=== PATIENT | female | born 1980 | race Caucasian/White ===

== ENCOUNTER 2021-12-24 13:33 | Emergency (ER) | payer MEDICAID, SELFPAY ==
[2021-12-24 13:43] VITALS: BP 132/61; PULSE 78; RESP 20; TEMP 36.7; O2SAT 98; BMI 25.6
--- NOTE | 2021-12-24 14:24 | ED_ITS ---
HPI - Anxiety General Chief Complaint: Anxiety Stated Complaint: Major Anxiety Kidney Transplant Pt Time Seen by Provider: 12/24/21 13:59 Source: patient Mode of arrival: ambulatory Limitations: no limitations History of Present Illness HPI narrative: 41 yo female with hx of lupus, arthritis, s/p kidney transplant on mycophenolate, anxiety here with c/o anxiety Rx clonazepam 1mg BID and ativan up to 2mg QHS states that for the past 4 days she has had severe anxiety and itching. She just lost her grandfather at the time this started. She is not responding to medications. She notes that this happened before and it resolved with IV bendaryl. No changes in medications. complaint: anxiety Onset (ago): day(s) (4) Symptoms: sense of impending doom and other (itching skin) Severity: moderate Quality: constant Place: home History of similar episodes: Yes Provoking factors: emotional stress (grandfather ) Relieving factors: medication Exacerbating factors: nothing Associated symptoms: other (feels her body is itchy) Related Data Allergies Allergy/AdvReac Type Severity Reaction Status Date / Time cyclosporine [CYCLOSPORINE] Allergy Severe kidney Unverified 03/21/20 18:15 issues NSAIDS (Non-Steroidal Allergy Severe CAUTION Unverified 03/21/20 18:15 Anti-Inflamma FOR KIDNEY [NSAIDS (NON-STEROIDAL TRANSPLANT ANTI-INFLAMMA] sulfamethoxazole Allergy Severe GUILLERMO Unverified 03/21/20 18:15 [From BACTRIM] FLARE UP tacrolimus [From PROGRAF] Allergy Severe SHAKES/AFFECTED Unverified 03/21/20 18:15 RENAL TRANSPLANT trimethoprim [From BACTRIM] Allergy Severe GUILLERMO Unverified 03/21/20 18:15 FLARE UP simvastatin [SIMVASTATIN] Allergy Intermediate itchy Unverified 03/21/20 18:15 acetaminophen [Percocet] Allergy Unknown Verified 07/07/18 00:00 oxycodone Allergy Unknown Verified 07/07/18 00:00 tapentadol [From NUCYNTA] AdvReac Severe URINARY Unverified 03/21/20 18:15 RETENTION doxycycline [DOXYCYCLINE] AdvReac Mild NAUSEA Unverified 03/21/20 18:15 From NUCYNTA Allergy Severe URINARY Uncoded 03/21/20 18:15 RETENTION From COMPAZINE Allergy Intermediate DYSTONIC Uncoded 09/17/20 18:15 REACTION BACTRIM Allergy Unknown Uncoded 07/07/18 00:00 Bactrim Allergy Unknown Uncoded 10/05/11 00:00 compazine Allergy Unknown Uncoded 10/05/11 00:00 COMPEZINE Allergy Unknown Uncoded 07/07/18 00:00 Dicyclomine HCl Allergy Unknown Uncoded 10/05/11 00:00 DILAUDID Allergy Unknown Uncoded 07/07/18 00:00 Dilaudid Allergy Unknown Uncoded 10/05/11 00:00 doxycycline Allergy Unknown Uncoded 07/07/18 00:00 NSAIDS Allergy Unknown Uncoded 07/07/18 00:00 nsaids Allergy Unknown Uncoded 10/05/11 00:00 Oxycodone HCl Allergy Unknown Uncoded 10/05/11 00:00 PROGRAF Allergy Unknown Uncoded 07/07/18 00:00 Prograf Allergy Unknown Uncoded 10/05/11 00:00 From DILAUDID AdvReac Intermediate NAUSEA, Uncoded 03/21/20 18:15 URINARY RETENTION Review of Systems Review of Systems: Constitutional : No Fever, No Chills ENT/Mouth : No Ear Pain, No Nasal Congestion, No sore throat Eyes: No Eye Pain, No Swelling, No Redness Cardiovascular : No Chest Pain, No SOB Respiratory : No Cough, No Sputum, No Dyspnea Gastrointestinal : No Nausea, No Vomiting, No Diarrhea, No Hematochezia, No Melena Genitourinary : No Dysuria, No Urinary Frequency, No Hematuria Musculoskeletal : No Myalgias Skin : No Skin Lesions, No rash, pos pruritis Neuro : No Weakness, No Numbness, No Paresthesias, No Dizziness, No Headache Psych : positive Anxiety, no Depression, no SI/HI Heme/Lymph: No Lymphadenopathy Endocrine : No Polyuria, No Polydipsia All other systems reviewed and are negative PMFSH Past Medical History Attestation statement: The following information was validated with the patient. Medical History (Updated 12/24/21 @ 15:11 by Sheila Song DO) Anxiety Arthritis Back pain Lupus Surgical History (Updated 12/24/21 @ 14:27 by Sheila Song DO) Kidney transplant recipient Transplant Social History Social History (Updated 12/24/21 @ 14:27 by Sheila Song DO) Patient Tobacco Use Status: Never used Tobacco Advance Directives: No Advance Directives Information Provided: No Physical Exam Vital Signs: Vital Signs: Last Vital Signs Temp 98.0 F 12/24/21 13:43 Pulse 78 12/24/21 13:43 Resp 20 12/24/21 13:43 BP 132/61 12/24/21 13:43 Pulse Ox 98 12/24/21 13:43 O2 Del Method 12/24/21 13:43 BMI result Body Mass Index 25.6 Appearance: Alert. Oriented X3. Mild acute distress. Anxious Eyes: Pupils equal, round and reactive to light. ENT: Pharynx normal. Neck: Normal inspection. Neck supple. CVS: Normal heart rate and rhythm. Pulses normal. Respiratory: No respiratory distress. Breath sounds normal. Abdomen: Soft and nontender. Skin: Skin warm and dry. Normal skin color. Normal skin turgor. no hvies noted, no rash seen but she is itching her arms Extremities: No lower extremity edema. No calf ttp Neuro: Oriented X 3. No motor deficit. No sensory deficit. Course Course Course Narrative: labs at baseline from 2018 patient feels better stable for DC MDM - Anxiety MDM Narrative Medical decision making narrative: 41 yo female with hx of lupus, arthritis, s/p kidney transplant on mycophenolate, anxiety here with severe bout of anxiety due to the of her grandfather. She has no SI. She states this has happened before in the past and she responded to IV benadryl. Will obtain basic labs, give IV benadryl/ativan and reassess. Has outpatient support, Rx and providers. Lab Data Result diagrams: 12/24/21 14:51 12/24/21 14:51 Labs: Lab Results 12/24/21 12/24/21 Range/Units 14:51 14:51 WBC 10.2 (4.8-10.8) X10*3/uL RBC 4.17 L (4.20-5.50) X10*6/uL Hgb 11.8 L (12.0-16.0) g/dl Hct 37.8 (37.0-47.0) % MCV 90.6 (80.0-98.0) fL MCH 28.3 (27.0-33.0) pg MCHC 31.2 (31.0-35.0) g/dl RDW 12.7 (11.0-16.0) % Plt Count 324 (160-400) X10*3/uL MPV 9.6 (9.4-12.3) fL Immature Gran % (Auto) 0.5 H (0.0-0.4) % Neut % (Auto) 76.2 H (45-73) % Lymph % (Auto) 16.4 L (20-40) % [place] % (Auto) 6.1 (2-11) % Eos % (Auto) 0.4 (0-4) % Baso % (Auto) 0.4 (0-2) % Lymph # (Auto) 1.7 (1.2-4.9) X10*3/uL [place] # (Auto) 0.6 (0.1-1.2) X10*3/uL Eos # (Auto) 0.0 (0.0-0.4) X10*3/uL Baso # (Auto) 0.0 (0.0-0.2) X10*3/uL Abs Immat Gran (auto) 0.05 H (0.00-0.03) X10*3/uL Absolute Neuts (auto) 7.7 (2.0-8.3) x10*3/uL Absolute Nucleated RBC 0.000 (0.0-0.012) X10*3/uL Nucleated RBC % (auto) 0.0 (0.0-0.2) /100WBC Sodium 139 (135-145) mmol/L Potassium 4.5 (3.3-5.1) mmol/L Chloride 111 H (96-108) mmol/L Carbon Dioxide 19 L (22-29) mmol/L Anion Gap 14 (12-20) BUN 19 H (9-16) mg/dL Creatinine 1.67 H (0.5-1.4) mg/dL Estim Creat Clear Calc 39.5 Estimated GFR 34 Random Glucose 102 (60-115) mg/dL Calcium 8.8 (8.4-10.2) mg/dL Total Bilirubin 0.2 (0.0-1.0) mg/dL Direct Bilirubin < 0.2 (0.0-0.5) mg/dL AST 44 H (5-31) U/L ALT 45 H (0-31) U/L Alkaline Phosphatase 112 (39-117) U/L Total Protein 7.9 (6.5-8.0) g/dL Albumin 4.3 (3.5-5.0) g/dL Discharge Plan Discharge Clinical Impression: Acute anxiety Patient Disposition: Home, Self-Care Instructions: Anxiety (ED) Additional Instructions: return to ED for any worsening symptoms or concerns Creatinine 1.67 Referrals: Physician,None [Primary Care Provider] - 2 days (as needed) Stand Alone Forms: Work/School Release
[2021-12-24 14:54] LABS: MANUAL DIFF FLAG NO
[2021-12-24 15:02] LABS: Basophils Percent Auto 0.4 % (0-2); Eosinophils Percent Auto 0.4 % (0-4); Hematocrit 37.8 % (37.0-47.0); Hemoglobin 11.8 g/dl (12.0-16.0); Imm Gran Abs Auto 0.05 X10*3/uL (0.00-0.03); Imm Gran Pct Auto 0.5 % (0.0-0.4); Lymphocytes Absolute Auto 1.7 X10*3/uL (1.2-4.9); Lymphocytes Percent Auto 16.4 % (20-40); Mean Corpuscular HGB Conc 31.2 g/dl (31.0-35.0); Mean Corpuscular Hemoglobin 28.3 pg (27.0-33.0); Mean Corpuscular Volume 90.6 fL (80.0-98.0); Mean Platelet Volume 9.6 fL (9.4-12.3); Monocytes Absolute Auto 0.6 X10*3/uL (0.1-1.2); Monocytes Percent Auto 6.1 % (2-11); Neutrophils Absolute Auto 7.7 x10*3/uL (2.0-8.3); Neutrophils Percent Auto 76.2 % (45-73); Platelet Count 324 X10*3/uL (160-400); Red Blood Count 4.17 X10*6/uL (4.20-5.50); Red Cell Distribution Width 12.7 % (11.0-16.0); White Blood Count 10.2 X10*3/uL (4.8-10.8)
[2021-12-24] MEDS: LORazepam 2 MG/ML VIAL 1 MG IVPUSH (15:15)
[2021-12-24] MEDS: diphenhydrAMINE HCL 50 MG/ML VIAL 25 MG IVPUSH (15:15)
[2021-12-24 15:18] LABS: Alanine Aminotransferase 45 U/L (0-31); Albumin Level 4.3 g/dL (3.5-5.0); Alkaline Phosphatase 112 U/L (39-117); Anion Gap 14 (12-20); Aspartate Amino Transferase 44 U/L (5-31); Bilirubin Direct < 0.2 mg/dL (0.0-0.5); Bilirubin Total 0.2 mg/dL (0.0-1.0); Blood Urea Nitrogen 19 mg/dL (9-16); Calcium 8.8 mg/dL (8.4-10.2); Carbon Dioxide 19 mmol/L (22-29); Chloride 111 mmol/L (96-108); Creatinine Clr Calc Pharmacy 39.5; Estimated Glomerular Filt Rate 34; Glucose Random 102 mg/dL (60-115); Potassium 4.5 mmol/L (3.3-5.1); Sodium 139 mmol/L (135-145); Total Protein 7.9 g/dL (6.5-8.0)
[2021-12-24 15:32] VITALS: BP 94/52; PULSE 83; RESP 18; TEMP 36.2; O2SAT 96
[2021-12-24] MEDS: LORazepam 1 MG TABLET PO (16:13)
--- NOTE | 2021-12-24 16:14 | PC.NURSE ---
Medicated as per Palma Rincon4, c/o restless legs, feeling like anxiety has improved since IV benadryl
== END 2021-12-24 17:33 | disposition home or self-care (01) ==
PROVIDERS: Emergency Provider Emergency Medicine
DX: F41.1 Generalized anxiety disorder (principal); F43.0 Acute stress reaction; Z79.899 Other long term (current) drug therapy
CPT/HCPCS: 36415; 80048; 80076; 85025; 96374; 96375; 99284; J1200; J2060

== ENCOUNTER 2022-07-08 08:37 | Emergency (ER) | payer OTHER, MEDICAID, SELFPAY ==
[2022-07-08 08:42] VITALS: BP 126/77; PULSE 74; RESP 18; TEMP 36.3; O2SAT 99; BMI 24.7
--- NOTE | 2022-07-08 09:13 | ED.PSYCH ---
HPI - Psych General Chief Complaint: Psychiatric Symptoms Stated Complaint: Anxiety Depression Time Seen by Provider: 07/08/22 08:58 Source: patient Mode of arrival: ambulatory Limitations: no limitations History of Present Illness HPI Narrative: 41-year-old female with history of anxiety, depression, kidney transplant 20 years ago secondary to lupus on CellCept, GERD, rheumatoid arthritis, osteoporosis, avascular necrosis who presents with increasing depression since Wednesday. Patient reports that she has also had anxiety and insomnia despite taking her medications. She is having some interpersonal issues with her partner who she has been with for 9 years. She is currently being seen by psychiatrist (Randal Spicer) but does not have a therapist. No suicidal thoughts, homicidal ideations, hallucinations. Patient reports poor p.o. intake which is pretty typical for her when she has depression. No other physical complaint Related Data Allergies Allergy/AdvReac Type Severity Reaction Status Date / Time cyclosporine [CYCLOSPORINE] Allergy Severe kidney Unverified 03/21/20 18:15 issues NSAIDS (Non-Steroidal Allergy Severe CAUTION Unverified 03/21/20 18:15 Anti-Inflamma FOR KIDNEY [NSAIDS (NON-STEROIDAL TRANSPLANT ANTI-INFLAMMA] sulfamethoxazole Allergy Severe GUILLERMO Unverified 03/21/20 18:15 [From BACTRIM] FLARE UP tacrolimus [From PROGRAF] Allergy Severe SHAKES/AFFECTED Unverified 03/21/20 18:15 RENAL TRANSPLANT trimethoprim [From BACTRIM] Allergy Severe GUILLERMO Unverified 03/21/20 18:15 FLARE UP simvastatin [SIMVASTATIN] Allergy Intermediate itchy Unverified 03/21/20 18:15 acetaminophen [Percocet] Allergy Unknown Verified 07/07/18 00:00 oxycodone Allergy Unknown Verified 07/07/18 00:00 tapentadol [From NUCYNTA] AdvReac Severe URINARY Unverified 03/21/20 18:15 RETENTION doxycycline [DOXYCYCLINE] AdvReac Mild NAUSEA Unverified 03/21/20 18:15 From NUCYNTA Allergy Severe URINARY Uncoded 03/21/20 18:15 RETENTION From COMPAZINE Allergy Intermediate DYSTONIC Uncoded 03/21/20 18:15 REACTION BACTRIM Allergy Unknown Uncoded 07/07/18 00:00 Bactrim Allergy Unknown Uncoded 10/05/11 00:00 compazine Allergy Unknown Uncoded 10/05/11 00:00 COMPEZINE Allergy Unknown Uncoded 07/07/18 00:00 Dicyclomine HCl Allergy Unknown Uncoded 10/05/11 00:00 DILAUDID Allergy Unknown Uncoded 07/07/18 00:00 Dilaudid Allergy Unknown Uncoded 10/05/11 00:00 doxycycline Allergy Unknown Uncoded 07/07/18 00:00 NSAIDS Allergy Unknown Uncoded 07/07/18 00:00 nsaids Allergy Unknown Uncoded 10/05/11 00:00 Oxycodone HCl Allergy Unknown Uncoded 10/05/11 00:00 PROGRAF Allergy Unknown Uncoded 07/07/18 00:00 Prograf Allergy Unknown Uncoded 10/05/11 00:00 From DILAUDID AdvReac Intermediate NAUSEA, Uncoded 03/21/20 18:15 URINARY RETENTION Review of Systems Review of Systems: Yes all other systems are reviewed and are negative Constitutional: Constitutional: Reports no additional constitutional complaints, Denies body ache(s), Denies chills, Denies fever(s), Denies headache(s), Reports poor appetite and Denies weakness Eyes: Eyes: Reports no additional eye complaints and Denies change in vision ENT: Reports system reviewed and no additional complaints, except as documented, Denies dizziness, Denies headache(s), Denies nasal congestion, Denies nasal discharge and Denies neck pain Cardiovascular: Cardiovascular: Reports no additional cardiovascular complaints, Denies chest pain, Denies leg edema and Denies dyspnea Respiratory: Respiratory: Reports no additional respiratory complaints, Denies cough and Denies dyspnea Gastrointestinal: Gastrointestinal: Reports no additional gastrointestinal complaints, Denies abdominal pain, Denies diarrhea, Denies nausea and Denies vomiting Genitourinary: Genitourinary: Reports no additional female genitourinary complaints and Denies urinary incontinence Musculoskeletal: Musculoskeletal: Reports no additional musculoskeletal complaints, Denies back pain, Denies arthralgias, Denies joint swelling, Denies neck pain, Denies numbness and Denies tingling Integumentary/Breasts: Skin/Breast: Reports system reviewed and no additional complaints, except as docu and Denies rash Neurologic: Reports system reviewed and no additional complaints, except as documented, Denies Abnormal speech present, Denies dizziness, Denies headache(s), Denies numbness, Denies tingling and Denies weakness Psychiatric: Psychiatric: Reports anxiety, Reports depression, Denies homicidal ideation and Denies suicidal ideation [facility] Past Medical History Attestation statement: The following information was validated with the patient. Source: old records reviewed and nursing notes reviewed Medical History Anxiety Arthritis Back pain Lupus Surgical History Kidney transplant recipient Transplant Social History Social History Alcohol intake: never Patient Tobacco Use Status: Never used Tobacco Smoked in Last 30 Days: No Use of substances other than those prescribed or required for medical reasons: Yes Substance Use Type: Marijuana Advance Directives: No Patient : No Physical Exam Vital Signs: Vital Signs: Last Vital Signs Temp 97.3 F 07/08/22 08:42 Pulse 74 07/08/22 08:42 Resp 18 07/08/22 08:42 BP 126/77 07/08/22 08:42 Pulse Ox 99 07/08/22 08:42 O2 Del Method 07/08/22 08:42 BMI result Body Mass Index 24.7 Const: General: cooperative, healthy appearing, comfortable and no acute distress Orientation/consciousness: patient oriented x3 Limitations: no limitations HEENT: Head: Yes normal to inspection Ears: hearing grossly normal bilaterally General nose exam: Normal external nose present Face and sinus: Yes normal facial exam Mouth: Normal oral and palatal mucosa present Throat: Yes posterior oropharynx normal Eyes: General: appearance normal, both eyes and all related structures Pupils: Equal, round and reactive pupils present Neck: Neck: Yes normal visual inspection Chest: Chest palpation & inspection: normal inspection of the chest Resp: Effort & Inspection: normal respiratory effort Auscultation: clear to auscultation bilaterally Cardio: Rate: regular rate Rhythm: regular rhythm Peripheral pulses: Peripheral pulses 2+ throughout GI: Inspection: Yes normal to inspection Palpation (GI): Soft to palpation and nontender Auscultation: normal bowel sounds Back/Spine/Pelvis: Thoracic/Lumbar Spine: thoracic and lumbar spine normal to inspection Skin: General skin exam: no rashes or lesions noted Neuro: General: patient oriented x3, no focal motor deficits and normal sensation to monofilament Cranial nerves: Yes Equal, round and reactive pupils present Cognition (Neuro): normal cognition Speech: No Abnormal speech present Gait exam (Neuro): Normal gait present Motor exam (neuro): 5/5 motor strength present throughout Extrem: General: Yes normal to inspection Course Course Course Narrative: Patient with mildly elevated creatinine and BUN from baseline. Patient with history of renal transplant. Patient is followed by Nephrology Jani SHELTON at [facility] [place]. Baseline creatinine is 1.6-1.7, baseline BUN is 20. Patient to receive gentle hydration and will repeat labs. This is likely from decreased oral intake secondary to depression. Reevaluation(s) Reevaluation #1: Renal function is back at baseline. 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 Patient was seen by care team. Patient will be given outpatient resources for follow-up. I spoke to patient she denies SI. We did discuss that she needs to hydrate appropriately at home. Reviewed worrisome signs and symptoms of when to return to the emergency room. Comfortable with discharge home. Medications Administered Discontinued Medications Generic Name Dose Route Start Last Admin Trade Name Freq PRN Reason Stop Dose Admin Sodium Chloride 1,000 mls @ 999 mls/hr 07/08/22 10:25 07/08/22 13:00 Ns IV 07/08/22 11:25 Infused .Q1H1M STA Infusion Lorazepam 0.5 mg 07/08/22 10:25 07/08/22 11:09 Lorazepam 2 Mg/Ml Vial IVPUSH 07/08/22 10:26 0.5 mg STAT STA Administration Medical Decision Making Medical Decision Making [facility] Narrative: 41-year-old female here with anxiety, depression, insomnia, poor p.o. intake for the last 4 days. No SI or HI. No additional physical complaints. Will obtain labs, toxicology and COVID screen. Once medically cleared patient will be seen by care team. No concern for acute ingestion or trauma Differential Diagnosis Differential Diagnoses: The differential diagnosis associated with the presentation includes Depression, anxiety Lab Data Result Diagrams: 07/08/22 09:37 07/08/22 13:58 Labs: Lab Results 07/08/22 07/08/22 07/08/22 Range/Units 09:37 09:37 09:37 WBC 10.9 H (4.8-10.8) X10*3/uL RBC 3.97 L (4.20-5.50) X10*6/uL Hgb 11.3 L (12.0-16.0) g/dl Hct 36.2 L (37.0-47.0) % MCV 91.2 (80.0-98.0) fL MCH 28.5 (27.0-33.0) pg MCHC 31.2 (31.0-35.0) g/dl RDW 12.5 (11.0-16.0) % Plt Count 323 (160-400) X10*3/uL MPV 9.4 (9.4-12.3) fL Immature Gran % (Auto) 0.4 (0.0-0.4) % Neut % (Auto) 60.4 (45-73) % Lymph % (Auto) 27.1 (20-40) % [place] % (Auto) 10.5 (2-11) % Eos % (Auto) 1.3 (0-4) % Baso % (Auto) 0.3 (0-2) % Lymph # (Auto) 3.0 (1.2-4.9) X10*3/uL [place] # (Auto) 1.1 (0.1-1.2) X10*3/uL Eos # (Auto) 0.1 (0.0-0.4) X10*3/uL Baso # (Auto) 0.0 (0.0-0.2) X10*3/uL Abs Immat Gran (auto) 0.04 H (0.00-0.03) X10*3/uL Absolute Neuts (auto) 6.6 (2.0-8.3) x10*3/uL Absolute Nucleated RBC 0.000 (0.0-0.012) X10*3/uL Nucleated RBC % (auto) 0.0 (0.0-0.2) /100WBC Sodium 138 (135-145) mmol/L Potassium 4.5 (3.3-5.1) mmol/L Chloride 106 (96-108) mmol/L Carbon Dioxide 24 (22-29) mmol/L Anion Gap 13 (12-20) BUN 25 H (9-16) mg/dL Creatinine 1.83 H (0.5-1.4) mg/dL Estim Creat Clear Calc 37.0 Estimated GFR 31 Random Glucose 96 (60-115) mg/dL Calcium 9.2 (8.4-10.2) mg/dL Total Bilirubin 0.2 (0.0-1.0) mg/dL Direct Bilirubin < 0.2 (0.0-0.5) mg/dL AST 27 (5-31) U/L ALT 34 H (0-31) U/L Alkaline Phosphatase 92 (39-117) U/L Total Protein 7.0 (6.5-8.0) g/dL Albumin 4.1 (3.5-5.0) g/dL Salicylates < 5.0 L (15-30) mg/dL Urine Opiates Screen (Not Detect) Urine Fentanyl Screen (Not Detect) Acetaminophen 1 (<30) mcg/mL Ur Barbiturates Screen (Not Detect) Ur Phencyclidine Scrn (Not Detect) Ur Amphetamines Screen (Not Detect) U Benzodiazepines Scrn (Not Detect) Urine Cocaine Screen (Not Detect) U Marijuana (THC) Screen (Not Detect) Ethyl Alcohol < 10 mg/dL COVID-19 (MOO) Negative (Negative) COVID-19 Clin Com See Note 07/08/22 07/08/22 Range/Units 09:37 13:58 WBC (4.8-10.8) X10*3/uL RBC (4.20-5.50) X10*6/uL Hgb (12.0-16.0) g/dl Hct (37.0-47.0) % MCV (80.0-98.0) fL MCH (27.0-33.0) pg MCHC (31.0-35.0) g/dl RDW (11.0-16.0) % Plt Count (160-400) X10*3/uL MPV (9.4-12.3) fL Immature Gran % (Auto) (0.0-0.4) % Neut % (Auto) (45-73) % Lymph % (Auto) (20-40) % [place] % (Auto) (2-11) % Eos % (Auto) (0-4) % Baso % (Auto) (0-2) % Lymph # (Auto) (1.2-4.9) X10*3/uL [place] # (Auto) (0.1-1.2) X10*3/uL Eos # (Auto) (0.0-0.4) X10*3/uL Baso # (Auto) (0.0-0.2) X10*3/uL Abs Immat Gran (auto) (0.00-0.03) X10*3/uL Absolute Neuts (auto) (2.0-8.3) x10*3/uL Absolute Nucleated RBC (0.0-0.012) X10*3/uL Nucleated RBC % (auto) (0.0-0.2) /100WBC Sodium 139 (135-145) mmol/L Potassium 4.4 (3.3-5.1) mmol/L Chloride 110 H (96-108) mmol/L Carbon Dioxide 24 (22-29) mmol/L Anion Gap 9 L (12-20) BUN 22 H (9-16) mg/dL Creatinine 1.67 H (0.5-1.4) mg/dL Estim Creat Clear Calc 40.5 Estimated GFR 34 Random Glucose 89 (60-115) mg/dL Calcium 8.6 D (8.4-10.2) mg/dL Total Bilirubin (0.0-1.0) mg/dL Direct Bilirubin (0.0-0.5) mg/dL AST (5-31) U/L ALT (0-31) U/L Alkaline Phosphatase (39-117) U/L Total Protein (6.5-8.0) g/dL Albumin (3.5-5.0) g/dL Salicylates (15-30) mg/dL Urine Opiates Screen POSITIVE H (Not Detect) Urine Fentanyl Screen Not Detected (Not Detect) Acetaminophen (<30) mcg/mL Ur Barbiturates Screen Not Detected (Not Detect) Ur Phencyclidine Scrn Not Detected (Not Detect) Ur Amphetamines Screen Not Detected (Not Detect) U Benzodiazepines Scrn POSITIVE H (Not Detect) Urine Cocaine Screen Not Detected (Not Detect) U Marijuana (THC) Screen POSITIVE H (Not Detect) Ethyl Alcohol mg/dL COVID-19 (MOO) (Negative) COVID-19 Clin Com Discharge Plan Discharge Clinical Impression: Acute anxiety, Depression, Dehydration, mild Patient Disposition: Home, Self-Care Instructions: Dehydration (ED), Depression (ED), Alcohol Intoxication (ED) Additional Instructions: Make sure that you are drinking plenty of fluid Follow-up with your outpatient providers in the resources provided by the care team Referrals: PhysicianKhoi [Primary Care Provider] - Interventions: [place]-Suicide Risk Severity Scale Last Done: 07/08/22 09:47 ED Discharge Assessment Last Done: 07/08/22 14:49 Discharge Date/Time: 07/08/22 14:49
[2022-07-08 09:50] LABS: MANUAL DIFF FLAG NO
[2022-07-08 09:57] LABS: Basophils Percent Auto 0.3 % (0-2); Eosinophils Absolute Auto 0.1 X10*3/uL (0.0-0.4); Eosinophils Percent Auto 1.3 % (0-4); Hematocrit 36.2 % (37.0-47.0); Hemoglobin 11.3 g/dl (12.0-16.0); Imm Gran Abs Auto 0.04 X10*3/uL (0.00-0.03); Imm Gran Pct Auto 0.4 % (0.0-0.4); Lymphocytes Percent Auto 27.1 % (20-40); Mean Corpuscular HGB Conc 31.2 g/dl (31.0-35.0); Mean Corpuscular Hemoglobin 28.5 pg (27.0-33.0); Mean Corpuscular Volume 91.2 fL (80.0-98.0); Mean Platelet Volume 9.4 fL (9.4-12.3); Monocytes Absolute Auto 1.1 X10*3/uL (0.1-1.2); Monocytes Percent Auto 10.5 % (2-11); Neutrophils Absolute Auto 6.6 x10*3/uL (2.0-8.3); Neutrophils Percent Auto 60.4 % (45-73); Platelet Count 323 X10*3/uL (160-400); Red Blood Count 3.97 X10*6/uL (4.20-5.50); Red Cell Distribution Width 12.5 % (11.0-16.0); White Blood Count 10.9 X10*3/uL (4.8-10.8)
[2022-07-08 10:08] LABS: Amphetamine Screen Urine Not Detected (Not Detect); Barbiturates, Urine Not Detected (Not Detect); Benzodiazepines Screen Urine POSITIVE (Not Detect); Cannabinoid Screen Urine POSITIVE (Not Detect); Cocaine Screen Urine Not Detected (Not Detect); Fentanyl, urine Not Detected (Not Detect); Opiate Screen Urine POSITIVE (Not Detect); Phencyclidine Screen Urine Not Detected (Not Detect)
[2022-07-08 10:10] LABS: COVID-19 Test Negative (Negative); IDNOW Serial# BCCEAD1C
[2022-07-08 10:11] LABS: Acetaminophen LAB 1 mcg/mL (<30); Alanine Aminotransferase 34 U/L (0-31); Albumin Level 4.1 g/dL (3.5-5.0); Alkaline Phosphatase 92 U/L (39-117); Anion Gap 13 (12-20); Aspartate Amino Transferase 27 U/L (5-31); Bilirubin Direct < 0.2 mg/dL (0.0-0.5); Bilirubin Total 0.2 mg/dL (0.0-1.0); Blood Urea Nitrogen 25 mg/dL (9-16); Calcium 9.2 mg/dL (8.4-10.2); Carbon Dioxide 24 mmol/L (22-29); Chloride 106 mmol/L (96-108); Estimated Glomerular Filt Rate 31; Ethanol < 10 mg/dL; Glucose Random 96 mg/dL (60-115); Potassium 4.5 mmol/L (3.3-5.1); Salicylate < 5.0 mg/dL (15-30); Sodium 138 mmol/L (135-145)
[2022-07-08] MEDS: 0.9 % Sodium Chloride 1,000 ML 999 ML IV (11:06)
[2022-07-08] MEDS: LORazepam 2 MG/ML VIAL 0.5 MG IVPUSH (11:09)
--- NOTE | 2022-07-08 12:29 | PC.NURSE ---
pt is asleep resting comfortably
[2022-07-08 14:24] LABS: Anion Gap 9 (12-20); Blood Urea Nitrogen 22 mg/dL (9-16); Calcium 8.6 mg/dL (8.4-10.2); Carbon Dioxide 24 mmol/L (22-29); Chloride 110 mmol/L (96-108); Creatinine Clr Calc Pharmacy 40.5; Estimated Glomerular Filt Rate 34; Glucose Random 89 mg/dL (60-115); Potassium 4.4 mmol/L (3.3-5.1); Sodium 139 mmol/L (135-145)
--- NOTE | 2022-07-08 14:46 | MHC.CARE ---
Pt is a 41 y/o partnered, [place]ian speaking, female who is previously unknown to the CARE Team.? She presents today with a complaint of elevated anxiety and depression, beginning on Wednesday and gradually worsening.? She stated that the triggering event was an argument with her boyfriend of 9 years that occurred on ?s [place].? She reports difficulty sleeping and anxiety that is manifesting as itchiness and restlessness.? Pt is alert and oriented x4 and is assessed on a consult request.?? She is dressed in her own clothing, is under blankets and resting in bed.? Her eye contact and speech are unremarkable.? She is engaged and is receptive to receiving support.? She reports poor sleep, stating that when she is depressed, she isolates and remains in bed, sleeping an unusually long period of time during these episodes.? She reports that her depression is generally followed by an elevated anxiety that is accompanied by restlessness, itching, and inability to sleep.? She reports that she has been unable to sleep since Wednesday.? She reports a decrease in appetite as well which she reports is normal for such episodes. Pt reports that when she is in these states of depression, her work is generally unaffected and she continues to go to work.? She reports that she does not experience depression while at work and attributes this to her being busy.?? She reports that these episodes do not happen frequently, stating that she cannot recall the last time it happened, stating that perhaps it was sometime in the spring or summer.? She reports that historically, these episodes pass within 3 days and she begins to feel more like herself. Pt has a hx of trauma related to medical crisis in her youth.? At the age of 15 y/o she was diagnosed with Lupus, which attacked her kidneys.? At the age of 19 y/o she underwent kidney transplants and encountered complications necessitating that she be placed in a medically induced coma for 3 months.? Pt reports that she was in a coma on two occasions. Pt denies SI, HI, , and self-harm urges.? She denies any hx of such.? She does not appear delusional or to be experiencing sx of psychosis.? Insight, judgement, memory, concentration, and impulse control are unconcerning. Pt reports that she has a psychiatrist that she sees regularly and who prescribes her medications for anxiety and depression.? She reported having a therapist who she liked a great deal but recently had a change to her medication which made her no longer eligible for services from him.? She is presently without a therapist.? CARE Team will refer pt for therapy.? Pt requested that she not be referred to [facility] as she had been previously employed by them.
--- NOTE | 2022-07-08 14:56 | MHC.CARE ---
Pt referred to [facility]
== END 2022-07-08 14:49 | disposition home or self-care (01) ==
PROVIDERS: Nurse Practitioner Family; Emergency Provider Emergency Medicine Emergency Medical Services
DX: F32.A Depression, unspecified (principal); F41.9 Anxiety disorder, unspecified; E86.0 Dehydration; G47.00 Insomnia, unspecified; Z20.822 Contact with and (suspected) exposure to COVID-19; F12.90 Cannabis use, unspecified, uncomplicated; Z94.0 Kidney transplant status; Z79.899 Other long term (current) drug therapy
CPT/HCPCS: 36415; 80048; 80076; 80143; 80179; 80307; 82077; 85025; 87635; 96361; 96374; 99284; 99285; J2060

== ENCOUNTER 2022-08-02 16:24 | Emergency (ER) | payer OTHER, MEDICAID, SELFPAY ==
[2022-08-02 16:44] VITALS: BP 170/93; PULSE 71; RESP 18; TEMP 36.8; O2SAT 99; BMI 24.7
--- NOTE | 2022-08-02 16:46 | ED_ITS ---
HPI - Nausea/Vomiting/Diarrhea General Chief complaint: Nausea/Vomiting/Diarrhea <Sarah Quiñonez CNP - Last Filed: 08/02/22 16:54> Stated complaint: dehydrated/ vomiting 3 days <Sarah Quiñonez CNP - Last Filed: 08/02/22 16:54> Time Seen by Provider: 08/02/22 20:08 <Sarah Quiñonez CNP - Last Filed: 08/02/22 16:54> Source: patient <Chace Sibley MD - Last Filed: 08/03/22 01:14> Mode of arrival: ambulatory <Chace Sibley MD - Last Filed: 08/03/22 01:14> Limitations: no limitations <Chace Sibley MD - Last Filed: 08/03/22 01:14> History of Present Illness HPI Narrative: Patient status post kidney transplant in 1999 been sick for last 3 days with nausea vomiting feeling weak taking antibiotic initially was on amoxicillin now Augmentin for sinus infection by PCP had few 3-4 loose bowel movements today, feels dehydrated no fever no chills no urine symptoms <Chace Sibley MD - Last Filed: 08/03/22 01:14> Related Data Home medications: Previous Rx's Medication Instructions Recorded ondansetron 4 mg disintegrating 4 mg PO Q6-8H PRN nausea and 08/02/22 tablet vomiting #7 tabs <Sarah Quiñonez CNP - Last Filed: 08/02/22 16:54> Allergies/Adverse reactions: Allergies Allergy/AdvReac Type Severity Reaction Status Date / Time cyclosporine [CYCLOSPORINE] Allergy Severe kidney Unverified 03/21/20 18:15 issues NSAIDS (Non-Steroidal Allergy Severe CAUTION Unverified 03/21/20 18:15 Anti-Inflamma FOR KIDNEY [NSAIDS (NON-STEROIDAL TRANSPLANT ANTI-INFLAMMA] sulfamethoxazole Allergy Severe GUILLERMO Unverified 03/21/20 18:15 [From BACTRIM] FLARE UP tacrolimus [From PROGRAF] Allergy Severe SHAKES/AFFECTED Unverified 03/21/20 18:15 RENAL TRANSPLANT trimethoprim [From BACTRIM] Allergy Severe GUILLERMO Unverified 03/21/20 18:15 FLARE UP simvastatin [SIMVASTATIN] Allergy Intermediate itchy Unverified 03/21/20 18:15 acetaminophen [Percocet] Allergy Unknown Verified 07/07/18 00:00 oxycodone Allergy Unknown Verified 07/07/18 00:00 tapentadol [From NUCYNTA] AdvReac Severe URINARY Unverified 03/21/20 18:15 RETENTION doxycycline [DOXYCYCLINE] AdvReac Mild NAUSEA Unverified 03/21/20 18:15 From NUCYNTA Allergy Severe URINARY Uncoded 03/21/20 18:15 RETENTION From COMPAZINE Allergy Intermediate DYSTONIC Uncoded 03/21/20 18:15 REACTION BACTRIM Allergy Unknown Uncoded 07/07/18 00:00 Bactrim Allergy Unknown Uncoded 10/05/11 00:00 compazine Allergy Unknown Uncoded 10/05/11 00:00 COMPEZINE Allergy Unknown Uncoded 07/07/18 00:00 Dicyclomine HCl Allergy Unknown Uncoded 10/05/11 00:00 DILAUDID Allergy Unknown Uncoded 07/07/18 00:00 Dilaudid Allergy Unknown Uncoded 10/05/11 00:00 doxycycline Allergy Unknown Uncoded 07/07/18 00:00 NSAIDS Allergy Unknown Uncoded 07/07/18 00:00 nsaids Allergy Unknown Uncoded 10/05/11 00:00 Oxycodone HCl Allergy Unknown Uncoded 10/05/11 00:00 PROGRAF Allergy Unknown Uncoded 07/07/18 00:00 Prograf Allergy Unknown Uncoded 10/05/11 00:00 From DILAUDID AdvReac Intermediate NAUSEA, Uncoded 03/21/20 18:15 URINARY RETENTION <Sarah Quiñonez CNP - Last Filed: 08/02/22 16:54> Review of Systems Review of Systems: Yes all other systems are reviewed and are negative <Chace Sibley MD - Last Filed: 08/03/22 01:14> [facility] Past Medical History Medical History: Medical History Anxiety Arthritis Back pain Lupus <Sarah Quiñonez CNP - Last Filed: 08/02/22 16:54> Surgical History: Surgical History Kidney transplant recipient Transplant <Sarah Quiñonez CNP - Last Filed: 08/02/22 16:54> Social History Social History: Social History Alcohol intake: never Patient Tobacco Use Status: Never used Tobacco Substance Use Type: Marijuana Advance Directives: No Advance Directives Information Provided: Yes <Sarah Larsen MADHAVI Quiñonez - Last Filed: 08/02/22 16:54> Physical Exam Vital Signs: Vital Signs: Last Vital Signs Temp 98 F 08/02/22 20:38 Pulse 61 08/02/22 20:38 Resp 15 08/02/22 20:38 BP 157/86 H 08/02/22 20:38 Pulse Ox 99 08/02/22 20:38 O2 Del Method 08/02/22 20:38 BMI result Body Mass Index 24.7 <Sarah EmanuelMADHAVI martines - Last Filed: 08/02/22 16:54> Vital Signs: Last Vital Signs Temp 98 F 08/02/22 20:38 Pulse 61 08/02/22 20:38 Resp 15 08/02/22 20:38 BP 157/86 H 08/02/22 20:38 Pulse Ox 99 08/02/22 20:38 O2 Del Method 08/02/22 20:38 BMI result Body Mass Index 24.7 <Chace Sibley MD - Last Filed: 08/03/22 01:14> Appearance: Alert. Oriented X3. No acute distress. Eyes: PERRLA, No Nystagmus ENT: Pharynx normal. Oral Mucosa moist Neck: Normal inspection. Neck supple. CVS: Normal heart rate and rhythm. Pulses normal. Respiratory: No respiratory distress. Equal air entry bilateral, no wheezing/rales/rhonchi Abdomen: Soft and nontender. Bowel sounds are present, no mass palpable, no CVA tenderness Skin: Skin warm and dry. Normal skin color. Normal skin turgor. Extremities: No lower extremity edema. No calf tenderness Neuro: Oriented X 3. No motor deficit. No sensory deficit.No cerebellar signs , cranial nerves II-XII intact <Cahce Sibley MD - Last Filed: 08/03/22 01:14> Course Course Course Narrative: This is an RME: Additional HPI, ROS, PE not included below will be deferred to primary provider. Patient is a 41-year-old female who presents emergency department for evaluation nausea, vomiting, diarrhea and poor p.o. tolerance for the past 3 days. Patient reports that 4 days ago she was initiated on Augmentin and flonase for treatment of sinusitis. Prior to that she completed a 10 day course of amoxicillin, at 3 days were she was feeling well, before symptoms returned and she began the Augmentin. Denies any oral steroid usage. She reports a history of renal transplant in 1999 due to lupus. She states she has been unable to take her oral medications, including Cellcept. Denies any concerns or recent issues for transplant rejection. Endorsing chills associated with this. Denies abdominal pain, urinary frequency/urgency/hesitancy, inability to urinate. Has trialed Pepto-Bismol, f or nausea, with minimal improvement. Plan: Labs, urinalysis, urine , viral testing, ondansetron p.o. <Sarah Quiñonez CNP - Last Filed: 08/02/22 16:54> Medications Administered Discontinued Medications Generic Name Dose Route Start Last Admin Trade Name Freq PRN Reason Stop Dose Admin Sodium Chloride 1,000 mls @ 999 mls/hr 08/02/22 20:11 08/02/22 21:55 Ns IV 08/02/22 21:11 Infused .Q1H1M ONE Infusion Ondansetron HCl 4 mg 08/02/22 16:49 08/02/22 16:59 Ondansetron Odt 4 Mg Tab.Rapdis TRANSLINGU 08/02/22 16:50 4 mg ONCE ONE Administration Sumatriptan Succinate 6 mg 08/02/22 20:22 08/02/22 20:35 Sumatriptan Succinate 6 Mg/0.5 Ml Vial SUBCUT 08/02/22 20:23 6 mg ONCE ONE Administration <Sarah Quiñonez CNP - Last Filed: 08/02/22 16:54> Medications Administered Discontinued Medications Generic Name Dose Route Start Last Admin Trade Name Freq PRN Reason Stop Dose Admin Sodium Chloride 1,000 mls @ 999 mls/hr 08/02/22 20:11 08/02/22 21:55 Ns IV 08/02/22 21:11 Infused .Q1H1M ONE Infusion Ondansetron HCl 4 mg 08/02/22 16:49 08/02/22 16:59 Ondansetron Odt 4 Mg Tab.Miriandis TRANSLINGU 08/02/22 16:50 4 mg ONCE ONE Administration Sumatriptan Succinate 6 mg 08/02/22 20:22 08/02/22 20:35 Sumatriptan Succinate 6 Mg/0.5 Ml Vial SUBCUT 08/02/22 20:23 6 mg ONCE ONE Administration <Chace Sibley MD - Last Filed: 08/03/22 01:14> Medical Decision Making Lab Data [facility] Lab Attestation statement: I reviewed the patient's lab results. <Chace Sibley MD - Last Filed: 08/03/22 01:14> Result Diagrams: 08/02/22 17:15 08/02/22 17:15 <Sarah Quiñonez CNP - Last Filed: 08/02/22 16:54> Labs: Lab Results 08/02/22 08/02/22 08/02/22 Range/Units 17:15 17:15 17:15 WBC 13.1 H (4.8-10.8) X10*3/uL RBC 4.48 (4.20-5.50) X10*6/uL Hgb 12.7 (12.0-16.0) g/dl Hct 40.6 (37.0-47.0) % MCV 90.6 (80.0-98.0) fL MCH 28.3 (27.0-33.0) pg MCHC 31.3 (31.0-35.0) g/dl RDW 12.4 (11.0-16.0) % Plt Count 398 (160-400) X10*3/uL MPV 9.6 (9.4-12.3) fL Immature Gran % (Auto) 0.6 H (0.0-0.4) % Neut % (Auto) 76.7 H (45-73) % Lymph % (Auto) 14.1 L (20-40) % [place] % (Auto) 8.1 (2-11) % Eos % (Auto) 0.3 (0-4) % Baso % (Auto) 0.2 (0-2) % Lymph # (Auto) 1.9 (1.2-4.9) X10*3/uL [place] # (Auto) 1.1 (0.1-1.2) X10*3/uL Eos # (Auto) 0.0 (0.0-0.4) X10*3/uL Baso # (Auto) 0.0 (0.0-0.2) X10*3/uL Abs Immat Gran (auto) 0.08 H (0.00-0.03) X10*3/uL Absolute Neuts (auto) 10.1 H (2.0-8.3) x10*3/uL Absolute Nucleated RBC 0.000 (0.0-0.012) X10*3/uL Nucleated RBC % (auto) 0.0 (0.0-0.2) /100WBC Sodium 137 (135-145) mmol/L Potassium 4.1 (3.3-5.1) mmol/L Chloride 103 (96-108) mmol/L Carbon Dioxide 25 (22-29) mmol/L Anion Gap 13 (12-20) BUN 14 (9-16) mg/dL Creatinine 1.44 H (0.5-1.4) mg/dL Estim Creat Clear Calc 47.0 Estimated GFR 41 Random Glucose 90 (60-115) mg/dL Calcium 9.9 D (8.4-10.2) mg/dL Total Bilirubin 0.4 (0.0-1.0) mg/dL AST 24 (5-31) U/L ALT 32 H (0-31) U/L Alkaline Phosphatase 99 (39-117) U/L Total Protein 8.3 H (6.5-8.0) g/dL Albumin 4.7 (3.5-5.0) g/dL Lipase 26 (8-78) U/L Urine Color Urine Appearance Urine pH (5.0-9.0) Ur Specific [place] (1.005-1.025) Urine Protein (Neg-Trace) mg/dL Urine Glucose (UA) (Negative) mg/dL Urine Ketones (Negative) mg/dL Urine Blood (Negative) Urine Nitrite (Negative) Ur Leukocyte Esterase (Negative) Urine RBC (0-2) /HPF Urine WBC (0-5) /HPF Ur Squamous Epith Cells (0-2) /HPF Urine Bacteria (None Seen) Hyaline Casts (0-2) /LPF Urine Test (NEGATIVE) COVID-19 (MOO) (Negative) COVID-19 Clin Com Influenza Type A (JONATHAN) Cancelled Influenza Type A (PCR) (Negative) Influenza Type B (JONATHAN) Cancelled Influenza Type B (PCR) (Negative) Influenza A & B Note Cancelled RSV RNA Qual (PCR) (Negative) SARS-CoV-2 RNA (RT-PCR) (Negative) 08/02/22 08/02/22 08/02/22 Range/Units 17:15 17:15 17:16 WBC (4.8-10.8) X10*3/uL RBC (4.20-5.50) X10*6/uL Hgb (12.0-16.0) g/dl Hct (37.0-47.0) % MCV (80.0-98.0) fL MCH (27.0-33.0) pg MCHC (31.0-35.0) g/dl RDW (11.0-16.0) % Plt Count (160-400) X10*3/uL MPV (9.4-12.3) fL Immature Gran % (Auto) (0.0-0.4) % Neut % (Auto) (45-73) % Lymph % (Auto) (20-40) % [place] % (Auto) (2-11) % Eos % (Auto) (0-4) % Baso % (Auto) (0-2) % Lymph # (Auto) (1.2-4.9) X10*3/uL [place] # (Auto) (0.1-1.2) X10*3/uL Eos # (Auto) (0.0-0.4) X10*3/uL Baso # (Auto) (0.0-0.2) X10*3/uL Abs Immat Gran (auto) (0.00-0.03) X10*3/uL Absolute Neuts (auto) (2.0-8.3) x10*3/uL Absolute Nucleated RBC (0.0-0.012) X10*3/uL Nucleated RBC % (auto) (0.0-0.2) /100WBC Sodium (135-145) mmol/L Potassium (3.3-5.1) mmol/L Chloride (96-108) mmol/L Carbon Dioxide (22-29) mmol/L Anion Gap (12-20) BUN (9-16) mg/dL Creatinine (0.5-1.4) mg/dL Estim Creat Clear Calc Estimated GFR Random Glucose (60-115) mg/dL Calcium (8.4-10.2) mg/dL Total Bilirubin (0.0-1.0) mg/dL AST (5-31) U/L ALT (0-31) U/L Alkaline Phosphatase (39-117) U/L Total Protein (6.5-8.0) g/dL Albumin (3.5-5.0) g/dL Lipase (8-78) U/L Urine Color Yellow Urine Appearance Cloudy Urine pH 5.5 (5.0-9.0) Ur Specific [place] >= 1.030 H (1.005-1.025) Urine Protein 300 (3+) H (Neg-Trace) mg/dL Urine Glucose (UA) Negative (Negative) mg/dL Urine Ketones Trace (Negative) mg/dL Urine Blood Negative (Negative) Urine Nitrite Negative (Negative) Ur Leukocyte Esterase Trace H (Negative) Urine RBC 0-2 (0-2) /HPF Urine WBC 0-5 (0-5) /HPF Ur Squamous Epith Cells 11-20 (0-2) /HPF Urine Bacteria None Seen (None Seen) Hyaline Casts 3-5 (0-2) /LPF Urine Test (NEGATIVE) COVID-19 (MOO) Negative (Negative) COVID-19 Clin Com See Note Influenza Type A (JONATHAN) Influenza Type A (PCR) NEGATIVE (Negative) Influenza Type B (JONATHAN) Influenza Type B (PCR) NEGATIVE (Negative) Influenza A & B Note RSV RNA Qual (PCR) NEGATIVE (Negative) SARS-CoV-2 RNA (RT-PCR) NEGATIVE (Negative) 08/02/22 Range/Units 17:16 WBC (4.8-10.8) X10*3/uL RBC (4.20-5.50) X10*6/uL Hgb (12.0-16.0) g/dl Hct (37.0-47.0) % MCV (80.0-98.0) fL MCH (27.0-33.0) pg MCHC (31.0-35.0) g/dl RDW (11.0-16.0) % Plt Count (160-400) X10*3/uL MPV (9.4-12.3) fL Immature Gran % (Auto) (0.0-0.4) % Neut % (Auto) (45-73) % Lymph % (Auto) (20-40) % [place] % (Auto) (2-11) % Eos % (Auto) (0-4) % Baso % (Auto) (0-2) % Lymph # (Auto) (1.2-4.9) X10*3/uL [place] # (Auto) (0.1-1.2) X10*3/uL Eos # (Auto) (0.0-0.4) X10*3/uL Baso # (Auto) (0.0-0.2) X10*3/uL Abs Immat Gran (auto) (0.00-0.03) X10*3/uL Absolute Neuts (auto) (2.0-8.3) x10*3/uL Absolute Nucleated RBC (0.0-0.012) X10*3/uL Nucleated RBC % (auto) (0.0-0.2) /100WBC Sodium (135-145) mmol/L Potassium (3.3-5.1) mmol/L Chloride (96-108) mmol/L Carbon Dioxide (22-29) mmol/L Anion Gap (12-20) BUN (9-16) mg/dL Creatinine (0.5-1.4) mg/dL Estim Creat Clear Calc Estimated GFR Random Glucose (60-115) mg/dL Calcium (8.4-10.2) mg/dL Total Bilirubin (0.0-1.0) mg/dL AST (5-31) U/L ALT (0-31) U/L Alkaline Phosphatase (39-117) U/L Total Protein (6.5-8.0) g/dL Albumin (3.5-5.0) g/dL Lipase (8-78) U/L Urine Color Urine Appearance Urine pH (5.0-9.0) Ur Specific [place] (1.005-1.025) Urine Protein (Neg-Trace) mg/dL Urine Glucose (UA) (Negative) mg/dL Urine Ketones (Negative) mg/dL Urine Blood (Negative) Urine Nitrite (Negative) Ur Leukocyte Esterase (Negative) Urine RBC (0-2) /HPF Urine WBC (0-5) /HPF Ur Squamous Epith Cells (0-2) /HPF Urine Bacteria (None Seen) Hyaline Casts (0-2) /LPF Urine Test NEGATIVE (NEGATIVE) COVID-19 (MOO) (Negative) COVID-19 Clin Com Influenza Type A (JONATHAN) Influenza Type A (PCR) (Negative) Influenza Type B (JONATHAN) Influenza Type B (PCR) (Negative) Influenza A & B Note RSV RNA Qual (PCR) (Negative) SARS-CoV-2 RNA (RT-PCR) (Negative) <Sarah Quiñonez, DRAFTER PATENT - Last Filed: 08/02/22 16:54> Lab Results 08/02/22 08/02/22 08/02/22 Range/Units 17:15 17:15 17:15 WBC 13.1 H (4.8-10.8) X10*3/uL RBC 4.48 (4.20-5.50) X10*6/uL Hgb 12.7 (12.0-16.0) g/dl Hct 40.6 (37.0-47.0) % MCV 90.6 (80.0-98.0) fL MCH 28.3 (27.0-33.0) pg MCHC 31.3 (31.0-35.0) g/dl RDW 12.4 (11.0-16.0) % Plt Count 398 (160-400) X10*3/uL MPV 9.6 (9.4-12.3) fL Immature Gran % (Auto) 0.6 H (0.0-0.4) % Neut % (Auto) 76.7 H (45-73) % Lymph % (Auto) 14.1 L (20-40) % [place] % (Auto) 8.1 (2-11) % Eos % (Auto) 0.3 (0-4) % Baso % (Auto) 0.2 (0-2) % Lymph # (Auto) 1.9 (1.2-4.9) X10*3/uL [place] # (Auto) 1.1 (0.1-1.2) X10*3/uL Eos # (Auto) 0.0 (0.0-0.4) X10*3/uL Baso # (Auto) 0.0 (0.0-0.2) X10*3/uL Abs Immat Gran (auto) 0.08 H (0.00-0.03) X10*3/uL Absolute Neuts (auto) 10.1 H (2.0-8.3) x10*3/uL Absolute Nucleated RBC 0.000 (0.0-0.012) X10*3/uL Nucleated RBC % (auto) 0.0 (0.0-0.2) /100WBC Sodium 137 (135-145) mmol/L Potassium 4.1 (3.3-5.1) mmol/L Chloride 103 (96-108) mmol/L Carbon Dioxide 25 (22-29) mmol/L Anion Gap 13 (12-20) BUN 14 (9-16) mg/dL Creatinine 1.44 H (0.5-1.4) mg/dL Estim Creat Clear Calc 47.0 Estimated GFR 41 Random Glucose 90 (60-115) mg/dL Calcium 9.9 D (8.4-10.2) mg/dL Total Bilirubin 0.4 (0.0-1.0) mg/dL AST 24 (5-31) U/L ALT 32 H (0-31) U/L Alkaline Phosphatase 99 (39-117) U/L Total Protein 8.3 H (6.5-8.0) g/dL Albumin 4.7 (3.5-5.0) g/dL Lipase 26 (8-78) U/L Urine Color Urine Appearance Urine pH (5.0-9.0) Ur Specific [place] (1.005-1.025) Urine Protein (Neg-Trace) mg/dL Urine Glucose (UA) (Negative) mg/dL Urine Ketones (Negative) mg/dL Urine Blood (Negative) Urine Nitrite (Negative) Ur Leukocyte Esterase (Negative) Urine RBC (0-2) /HPF Urine WBC (0-5) /HPF Ur Squamous Epith Cells (0-2) /HPF Urine Bacteria (None Seen) Hyaline Casts (0-2) /LPF Urine Test (NEGATIVE) COVID-19 (MOO) (Negative) COVID-19 Clin Com Influenza Type A (JONATHAN) Cancelled Influenza Type A (PCR) (Negative) Influenza Type B (JONATHAN) Cancelled Influenza Type B (PCR) (Negative) Influenza A & B Note Cancelled RSV RNA Qual (PCR) (Negative) SARS-CoV-2 RNA (RT-PCR) (Negative) 08/02/22 08/02/22 08/02/22 Range/Units 17:15 17:15 17:16 WBC (4.8-10.8) X10*3/uL RBC (4.20-5.50) X10*6/uL Hgb (12.0-16.0) g/dl Hct (37.0-47.0) % MCV (80.0-98.0) fL MCH (27.0-33.0) pg MCHC (31.0-35.0) g/dl RDW (11.0-16.0) % Plt Count (160-400) X10*3/uL MPV (9.4-12.3) fL Immature Gran % (Auto) (0.0-0.4) % Neut % (Auto) (45-73) % Lymph % (Auto) (20-40) % [place] % (Auto) (2-11) % Eos % (Auto) (0-4) % Baso % (Auto) (0-2) % Lymph # (Auto) (1.2-4.9) X10*3/uL [place] # (Auto) (0.1-1.2) X10*3/uL Eos # (Auto) (0.0-0.4) X10*3/uL Baso # (Auto) (0.0-0.2) X10*3/uL Abs Immat Gran (auto) (0.00-0.03) X10*3/uL Absolute Neuts (auto) (2.0-8.3) x10*3/uL Absolute Nucleated RBC (0.0-0.012) X10*3/uL Nucleated RBC % (auto) (0.0-0.2) /100WBC Sodium (135-145) mmol/L Potassium (3.3-5.1) mmol/L Chloride (96-108) mmol/L Carbon Dioxide (22-29) mmol/L Anion Gap (12-20) BUN (9-16) mg/dL Creatinine (0.5-1.4) mg/dL Estim Creat Clear Calc Estimated GFR Random Glucose (60-115) mg/dL Calcium (8.4-10.2) mg/dL Total Bilirubin (0.0-1.0) mg/dL AST (5-31) U/L ALT (0-31) U/L Alkaline Phosphatase (39-117) U/L Total Protein (6.5-8.0) g/dL Albumin (3.5-5.0) g/dL Lipase (8-78) U/L Urine Color Yellow Urine Appearance Cloudy Urine pH 5.5 (5.0-9.0) Ur Specific [place] >= 1.030 H (1.005-1.025) Urine Protein 300 (3+) H (Neg-Trace) mg/dL Urine Glucose (UA) Negative (Negative) mg/dL Urine Ketones Trace (Negative) mg/dL Urine Blood Negative (Negative) Urine Nitrite Negative (Negative) Ur Leukocyte Esterase Trace H (Negative) Urine RBC 0-2 (0-2) /HPF Urine WBC 0-5 (0-5) /HPF Ur Squamous Epith Cells 11-20 (0-2) /HPF Urine Bacteria None Seen (None Seen) Hyaline Casts 3-5 (0-2) /LPF Urine Test (NEGATIVE) COVID-19 (MOO) Negative (Negative) COVID-19 Clin Com See Note Influenza Type A (JONATHAN) Influenza Type A (PCR) NEGATIVE (Negative) Influenza Type B (JONATHAN) Influenza Type B (PCR) NEGATIVE (Negative) Influenza A & B Note RSV RNA Qual (PCR) NEGATIVE (Negative) SARS-CoV-2 RNA (RT-PCR) NEGATIVE (Negative) 08/02/22 Range/Units 17:16 WBC (4.8-10.8) X10*3/uL RBC (4.20-5.50) X10*6/uL Hgb (12.0-16.0) g/dl Hct (37.0-47.0) % MCV (80.0-98.0) fL MCH (27.0-33.0) pg MCHC (31.0-35.0) g/dl RDW (11.0-16.0) % Plt Count (160-400) X10*3/uL MPV (9.4-12.3) fL Immature Gran % (Auto) (0.0-0.4) % Neut % (Auto) (45-73) % Lymph % (Auto) (20-40) % [place] % (Auto) (2-11) % Eos % (Auto) (0-4) % Baso % (Auto) (0-2) % Lymph # (Auto) (1.2-4.9) X10*3/uL [place] # (Auto) (0.1-1.2) X10*3/uL Eos # (Auto) (0.0-0.4) X10*3/uL Baso # (Auto) (0.0-0.2) X10*3/uL Abs Immat Gran (auto) (0.00-0.03) X10*3/uL Absolute Neuts (auto) (2.0-8.3) x10*3/uL Absolute Nucleated RBC (0.0-0.012) X10*3/uL Nucleated RBC % (auto) (0.0-0.2) /100WBC Sodium (135-145) mmol/L Potassium (3.3-5.1) mmol/L Chloride (96-108) mmol/L Carbon Dioxide (22-29) mmol/L Anion Gap (12-20) BUN (9-16) mg/dL Creatinine (0.5-1.4) mg/dL Estim Creat Clear Calc Estimated GFR Random Glucose (60-115) mg/dL Calcium (8.4-10.2) mg/dL Total Bilirubin (0.0-1.0) mg/dL AST (5-31) U/L ALT (0-31) U/L Alkaline Phosphatase (39-117) U/L Total Protein (6.5-8.0) g/dL Albumin (3.5-5.0) g/dL Lipase (8-78) U/L Urine Color Urine Appearance Urine pH (5.0-9.0) Ur Specific [place] (1.005-1.025) Urine Protein (Neg-Trace) mg/dL Urine Glucose (UA) (Negative) mg/dL Urine Ketones (Negative) mg/dL Urine Blood (Negative) Urine Nitrite (Negative) Ur Leukocyte Esterase (Negative) Urine RBC (0-2) /HPF Urine WBC (0-5) /HPF Ur Squamous Epith Cells (0-2) /HPF Urine Bacteria (None Seen) Hyaline Casts (0-2) /LPF Urine Test NEGATIVE (NEGATIVE) COVID-19 (MOO) (Negative) COVID-19 Clin Com Influenza Type A (JONATHAN) Influenza Type A (PCR) (Negative) Influenza Type B (JONATHAN) Influenza Type B (PCR) (Negative) Influenza A & B Note RSV RNA Qual (PCR) (Negative) SARS-CoV-2 RNA (RT-PCR) (Negative) <Chace Sibley MD - Last Filed: 08/03/22 01:14> Discharge Plan Discharge Clinical Impression: Gastroenteritis <Sarah Quiñonez CNP - Last Filed: 08/02/22 16:54> Patient Disposition: Home, Self-Care <Sarah Quiñonez CNP - Last Filed: 08/02/22 16:54> Instructions: Gastroenteritis (ED) <Sarah Quiñonez CNP - Last Filed: 08/02/22 16:54> Additional Instructions: Drink plenty of fluids Zofran for the nausea Report to the ER/PCP if not better <Sarah Quiñonez CNP - Last Filed: 08/02/22 16:54> Prescriptions: New ondansetron 4 mg tablet,disintegrating 4 mg PO Q6-8H PRN (Reason: nausea and vomiting) Qty: 7 0RF <Sarah Quiñonez CNP - Last Filed: 08/02/22 16:54> Interventions: ED Discharge Assessment Last Done: 08/02/22 22:56 <Sarah Quiñonez CNP - Last Filed: 08/02/22 16:54> Discharge Date/Time: 08/02/22 22:57 <Sarah Quiñonez CNP - Last Filed: 08/02/22 16:54>
[2022-08-02] MEDS: Ondansetron ODT 4 MG TAB.RAPDIS TRANSLINGU (16:59)
[2022-08-02 17:24] LABS: MANUAL DIFF FLAG NO
[2022-08-02 17:29] LABS: Appearance Urine Cloudy; Color Urine Yellow; Glucose Urine UA Negative (Negative); Leukocyte Esterase Urine Trace (Negative); Nitrite Urine Negative (Negative); PH 5.5 (5.0-9.0); Specific Gravity - Urine >= 1.030 (1.005-1.025); UMIC TRIGGER UACC YES; Urine Blood Negative (Negative); Urine Ketones Trace mg/dL (Negative); Urine Protein 300 (3+) mg/dL (Neg-Trace)
[2022-08-02 17:30] LABS: Basophils Percent Auto 0.2 % (0-2); Eosinophils Percent Auto 0.3 % (0-4); Hematocrit 40.6 % (37.0-47.0); Hemoglobin 12.7 g/dl (12.0-16.0); Imm Gran Abs Auto 0.08 X10*3/uL (0.00-0.03); Imm Gran Pct Auto 0.6 % (0.0-0.4); Lymphocytes Absolute Auto 1.9 X10*3/uL (1.2-4.9); Lymphocytes Percent Auto 14.1 % (20-40); Mean Corpuscular HGB Conc 31.3 g/dl (31.0-35.0); Mean Corpuscular Hemoglobin 28.3 pg (27.0-33.0); Mean Corpuscular Volume 90.6 fL (80.0-98.0); Mean Platelet Volume 9.6 fL (9.4-12.3); Monocytes Absolute Auto 1.1 X10*3/uL (0.1-1.2); Monocytes Percent Auto 8.1 % (2-11); Neutrophils Absolute Auto 10.1 x10*3/uL (2.0-8.3); Neutrophils Percent Auto 76.7 % (45-73); Platelet Count 398 X10*3/uL (160-400); Red Blood Count 4.48 X10*6/uL (4.20-5.50); Red Cell Distribution Width 12.4 % (11.0-16.0); White Blood Count 13.1 X10*3/uL (4.8-10.8)
[2022-08-02 17:32] LABS: Bacteria Urine None Seen (None Seen); RBC Urine 0-2 /HPF (0-2); WBC Urine 0-5 /HPF (0-5)
[2022-08-02 17:33] LABS: UPreg QC Valid YES; Urine Pregnancy NEGATIVE (NEGATIVE)
[2022-08-02 17:41] LABS: Alanine Aminotransferase 32 U/L (0-31); Albumin Level 4.7 g/dL (3.5-5.0); Alkaline Phosphatase 99 U/L (39-117); Anion Gap 13 (12-20); Aspartate Amino Transferase 24 U/L (5-31); Bilirubin Total 0.4 mg/dL (0.0-1.0); Blood Urea Nitrogen 14 mg/dL (9-16); COVID-19 Test Negative (Negative); Calcium 9.9 mg/dL (8.4-10.2); Carbon Dioxide 25 mmol/L (22-29); Chloride 103 mmol/L (96-108); Estimated Glomerular Filt Rate 41; Glucose Random 90 mg/dL (60-115); IDNOW Serial# 16C4AD1C; Lipase 26 U/L (8-78); Potassium 4.1 mmol/L (3.3-5.1); Sodium 137 mmol/L (135-145); Total Protein 8.3 g/dL (6.5-8.0)
[2022-08-02 18:23] LABS: Influenza A PCR NEGATIVE (Negative); Influenza B PCR NEGATIVE (Negative); Resp Syncy Virus RNA Qual PCR NEGATIVE (Negative); SARS COV2 PCR INHOUSE NEGATIVE (Negative)
[2022-08-02] MEDS: 0.9 % Sodium Chloride 1,000 ML 999 ML IV (20:35)
[2022-08-02] MEDS: SUMAtriptan succinate 6 MG/0.5 ML VIAL SUBCUT (20:35)
[2022-08-02 20:38] VITALS: BP 157/86; PULSE 61; RESP 15; TEMP 36.6; O2SAT 99
== END 2022-08-02 22:57 | disposition home or self-care (01) ==
PROVIDERS: Nurse Practitioner Family; Emergency Provider Internal Medicine
DX: K52.9 Noninfective gastroenteritis and colitis, unspecified (principal); R11.2 Nausea with vomiting, unspecified; E86.0 Dehydration; Z20.822 Contact with and (suspected) exposure to COVID-19; Z20.828 Contact with and (suspected) exposure to other viral communicable diseases; Z79.899 Other long term (current) drug therapy
CPT/HCPCS: 0241U; 80053; 81001; 81025; 83690; 85025; 87635; 96360; 96372; 99284; J3030

== ENCOUNTER 2022-11-07 14:48 | Emergency (ER) | payer OTHER, MEDICAID, SELFPAY ==
[2022-11-07 14:55] VITALS: BP 119/60; PULSE 73; RESP 16; TEMP 36.6; O2SAT 99; BMI 26.2
--- NOTE | 2022-11-07 14:55 | ED_ITS ---
HPI - Skin/Abscess/Foreign Bdy General Chief complaint: Skin/Abscess/Foreign Body <NIKITA Epstein Last Filed: 11/07/22 14:57> Stated complaint: abscess in groin <NIKITA Epstein Last Filed: 11/07/22 14:57> Time Seen by Provider: 11/07/22 15:17 <NIKITA Epstein Last Filed: 11/07/22 14:57> Source: patient <NIKITA Dubois Last Filed: 11/07/22 15:53> Mode of arrival: ambulatory <NIKITA Dubois Last Filed: 11/07/22 15:53> Limitations: no limitations <NIKITA Dubois Last Filed: 11/07/22 15:53> History of Present Illness HPI narrative: Patient is a 42 year old assigned female at with a history of kidney transplant in 1999 presenting to the emergency department today with a right groin abscess. Patient states that for the last 2 months she has had an abscess in her right groin. Patient states that she has been using warm compresses and some discharge expelled from the area. Patient states that she has a general surgery appointment in 5 days. Patient denies any dizziness, lightheadedness, abdominal pain, nausea, vomiting, fever, chills, blurry vision, double vision, loss of vision, chest pain, difficulty breathing, shortness of breath, back pain, night sweats, pain with urination, increased urinary frequency, increased urinary urgency, blood in her urine or stool, syncope or a near syncopal episode, recent trauma or falls, bowel incontinence, bladder incontinence, bowel retention, bladder retention, or any other complaints at this time. <NIKITA Dubois Last Filed: 11/07/22 15:53> MD complaint: abscess/boil <NIKITA Dubois Last Filed: 11/07/22 15:53> Onset (ago): month(s) (2) <NIKITA Dubois Last Filed: 11/07/22 15:53> Location: genitals <NIKITA Dubois Last Filed: 11/07/22 15:53> Severity: mild <NIKITA Dubois Last Filed: 11/07/22 15:53> Severity scale (1-10): 3 <NIKITA Dubois - Last Filed: 11/07/22 15:53> Quality: aching and dull <NIKITA Dubois - Last Filed: 11/07/22 15:53> Pain Consistency: constant <NIKITA Dubois - Last Filed: 11/07/22 15:53> Relieving factors: none <NIKITA Dubois - Last Filed: 11/07/22 15:53> Exacerbating factors: none <NIKITA Dubois - Last Filed: 11/07/22 15:53> Associated symptoms: denies other symptoms <NIKITA Dubois - Last Filed: 11/07/22 15:53> Treatments prior to arrival: none <NIKITA Dubois Last Filed: 11/07/22 15:53> Related Data Home medications: Previous Rx's Medication Instructions Recorded ondansetron 4 mg disintegrating 4 mg PO Q6-8H PRN nausea and 08/02/22 tablet vomiting #7 tabs cephalexin 500 mg capsule 500 mg PO Q6H 7 days #28 caps 11/07/22 fluconazole 150 mg tablet 150 mg PO Q3D 2 doses #2 tabs 11/07/22 (Diflucan) metronidazole 500 mg tablet 500 mg PO BID 7 days #14 tabs 11/07/22 <NIKITA Epstein - Last Filed: 11/07/22 14:57> Allergies/Adverse reactions: Allergies Allergy/AdvReac Type Severity Reaction Status Date / Time cyclosporine [CYCLOSPORINE] Allergy Severe kidney Unverified 03/21/20 18:15 issues NSAIDS (Non-Steroidal Allergy Severe CAUTION Unverified 03/21/20 18:15 Anti-Inflamma FOR KIDNEY [NSAIDS (NON-STEROIDAL TRANSPLANT ANTI-INFLAMMA] sulfamethoxazole Allergy Severe GUILLERMO Unverified 03/21/20 18:15 [From BACTRIM] FLARE UP tacrolimus [From PROGRAF] Allergy Severe SHAKES/AFFECTED Unverified 03/21/20 18:15 RENAL TRANSPLANT trimethoprim [From BACTRIM] Allergy Severe GUILLERMO Unverified 03/21/20 18:15 FLARE UP simvastatin [SIMVASTATIN] Allergy Intermediate itchy Unverified 03/21/20 18:15 acetaminophen [Percocet] Allergy Unknown Verified 07/07/18 00:00 oxycodone Allergy Unknown Verified 07/07/18 00:00 tapentadol [From NUCYNTA] AdvReac Severe URINARY Unverified 03/21/20 18:15 RETENTION doxycycline [DOXYCYCLINE] AdvReac Mild NAUSEA Unverified 03/21/20 18:15 From NUCYNTA Allergy Severe URINARY Uncoded 03/21/20 18:15 RETENTION From COMPAZINE Allergy Intermediate DYSTONIC Uncoded 03/21/20 18:15 REACTION BACTRIM Allergy Unknown Uncoded 07/07/18 00:00 Bactrim Allergy Unknown Uncoded 10/05/11 00:00 compazine Allergy Unknown Uncoded 10/05/11 00:00 COMPEZINE Allergy Unknown Uncoded 07/07/18 00:00 Dicyclomine HCl Allergy Unknown Uncoded 10/05/11 00:00 DILAUDID Allergy Unknown Uncoded 07/07/18 00:00 Dilaudid Allergy Unknown Uncoded 10/05/11 00:00 doxycycline Allergy Unknown Uncoded 07/07/18 00:00 NSAIDS Allergy Unknown Uncoded 07/07/18 00:00 nsaids Allergy Unknown Uncoded 10/05/11 00:00 Oxycodone HCl Allergy Unknown Uncoded 10/05/11 00:00 PROGRAF Allergy Unknown Uncoded 07/07/18 00:00 Prograf Allergy Unknown Uncoded 10/05/11 00:00 From DILAUDID AdvReac Intermediate NAUSEA, Uncoded 03/21/20 18:15 URINARY RETENTION <NIKITA Epstein Last Filed: 11/07/22 14:57> Review of Systems Constitutional: Constitutional: Reports no additional constitutional complaints, Denies chills, Denies fever(s) and Denies night sweats <NIKITA Dubois Last Filed: 11/07/22 15:53> Eyes: Eyes: Reports no additional eye complaints, Denies blurry vision, Denies change in vision, Denies diplopia, Denies eye discharge, Denies loss of vision and Denies eye pain <NIKITA Dubois Last Filed: 11/07/22 15:53> ENT: Denies dizziness <NIKITA Dubois Last Filed: 11/07/22 15:53> Cardiovascular: Cardiovascular: Reports no additional cardiovascular complaints, Denies chest pain, Denies lightheadedness, Denies Loss of Consciousness and Denies dyspnea <NIKITA Dubois - Last Filed: 11/07/22 15:53> Respiratory: Respiratory: Reports no additional respiratory complaints and Denies dyspnea <NIKITA Dubois - Last Filed: 11/07/22 15:53> Gastrointestinal: Gastrointestinal: Reports no additional gastrointestinal complaints, Denies abdominal pain, Denies melena, Denies hematochezia, Denies change in bowel habits and Denies change in stool character <NIKITA Dubois - Last Filed: 11/07/22 15:53> Genitourinary: Genitourinary: Denies hematuria, Denies urinary frequency, Denies dysuria, Denies urinary incontinence, Denies urinary hesitancy and Denies urinary urgency <NIKITA Dubois - Last Filed: 11/07/22 15:53> Comments: right groin abscess <NIKITA Dubois - Last Filed: 11/07/22 15:53> Musculoskeletal: Musculoskeletal: Reports no additional musculoskeletal complaints, Denies numbness and Denies tingling <NIKITA Dubois Last Filed: 11/07/22 15:53> Neurologic: Denies dizziness, Denies loss of vision, Denies numbness and Denies tingling <NIKITA Dubois Last Filed: 11/07/22 15:53> Psychiatric: Psychiatric: Reports no additional psychiatric complaints <NIKITA Ridley - Last Filed: 11/07/22 15:53> Endocrine: Endocrine: Reports no additional endocrine complaints <NIKITA Dubois Last Filed: 11/07/22 15:53> Hematologic/Lymphatic: Hematologic/Lymphatic: Reports no additional hematologic/lymphatic complaints <NIKITA Dubois - Last Filed: 11/07/22 15:53> Allergic/Immunologic: Allergic/Immunologic: Reports no additional allergic/immunologic complaints <NIKITA Dubois Last Filed: 11/07/22 15:53> PMFSH Past Medical History Attestation statement: The following information was validated with the patient. <NIKITA Dubois Last Filed: 11/07/22 15:53> Source: old records reviewed and nursing notes reviewed <NIKITA Dubois Last Filed: 11/07/22 15:53> Medical History: Medical History Anxiety Arthritis Back pain Lupus <NIKITA Epstein - Last Filed: 11/07/22 14:57> Surgical History: Surgical History Kidney transplant recipient Transplant <NIKITA Epstein - Last Filed: 11/07/22 14:57> Social History Social History: Social History Alcohol intake: never Patient Tobacco Use Status: Never used Tobacco Substance Use Type: Marijuana Advance Directives: No Advance Directives Information Provided: No <NIKITA Epstein - Last Filed: 11/07/22 14:57> Physical Exam Vital Signs: Vital Signs: Last Vital Signs Temp 97.8 F 11/07/22 14:55 Pulse 73 11/07/22 14:55 Resp 16 11/07/22 14:55 BP 119/60 11/07/22 14:55 Pulse Ox 99 11/07/22 14:55 O2 Del Method Room Air 11/07/22 14:55 BMI result Body Mass Index 26.2 <NIKITA Epstein - Last Filed: 11/07/22 14:57> Vital Signs: Last Vital Signs Temp 97.8 F 11/07/22 14:55 Pulse 73 11/07/22 14:55 Resp 16 11/07/22 14:55 BP 119/60 11/07/22 14:55 Pulse Ox 99 11/07/22 14:55 O2 Del Method Room Air 11/07/22 14:55 BMI result Body Mass Index 26.2 <NIKITA Dubois - Last Filed: 11/07/22 15:53> Const: General: cooperative, no acute distress, alert and awake <NIKITA Dubois - Last Filed: 11/07/22 15:53> Nutritional Appearance: well nourished <NIKITA Dubois - Last Filed: 11/07/22 15:53> Orientation/consciousness: patient oriented x3 <NIKITA Dubois - Last Filed: 11/07/22 15:53> Limitations: no limitations <NIKITA Dubois - Last Filed: 11/07/22 15:53> HEENT: Head: Yes normal to inspection and Yes atraumatic <Shyla Martinezgina [facility] Last Filed: 11/07/22 15:53> Ears: hearing grossly normal bilaterally and external ears normal <Shyla Menchaca [facility] Last Filed: 11/07/22 15:53> General nose exam: Normal external nose present, no nasal discharge noted and no epistaxis <Shylatee Martinezgina [facility] Last Filed: 11/07/22 15:53> Face and sinus: Yes normal facial exam, No abrasion and No laceration <Shyla Martinezgina [facility] Last Filed: 11/07/22 15:53> Mouth: Normal oral and palatal mucosa present, no drooling and no muffled voice <Shyla Martinezgina [facility] Last Filed: 11/07/22 15:53> Eyes: General: appearance normal, both eyes and all related structures <Shyla Menchaca, [facility] Last Filed: 11/07/22 15:53> Periorbital: periorbital findings normal <Shyla Martinezgina [facility] Last Filed: 11/07/22 15:53> Eyelids: Yes eyelids normal <Shylatee Martinezgina [facility] Last Filed: 11/07/22 15:53> Conjunctivae: conjunctivae normal <Shylatee Martinezgina [facility] Last Filed: 11/07/22 15:53> Pupils: Equal, round and reactive pupils present <Shylatee Martinezgina [facility] Last Filed: 11/07/22 15:53> EOM: EOMs intact bilaterally <Shyla Martinezgina [facility] Last Filed: 11/07/22 15:53> Neck: Neck: Yes normal visual inspection, Yes full ROM and Yes no lymphadenopathy <Shyla Martinezgina [facility] Last Filed: 11/07/22 15:53> Chest: Chest palpation & inspection: normal inspection of the chest <NIKITA Dubois Last Filed: 11/07/22 15:53> Resp: Effort & Inspection: normal respiratory effort and able to speak in complete sentences <Shyla Menchaca [facility] Last Filed: 11/07/22 15:53> GI: Inspection: Yes normal to inspection <Shyla Menchaca [place] - Last Filed: 11/07/22 15:53> : Female genitals images: 1. small area of erythema, no fluctuance <Marylin Suarezmandy PA - Last Filed: 11/07/22 14:57> Female genitals images: 1. small area of erythema, no fluctuance <Shyla Menchaca PA - Last Filed: 11/07/22 15:53> Neuro: General: patient oriented x3 and moves all extremities <Shyla Nikolai PA - Last Filed: 11/07/22 15:53> Cranial nerves: Yes Equal, round and reactive pupils present <hSyla Martinezgina PA - Last Filed: 11/07/22 15:53> Cognition (Neuro): normal cognition <Shyla Nikolai PA - Last Filed: 11/07/22 15:53> Motor exam (neuro): 5/5 motor strength present throughout <Shyla Martinezgina PA - Last Filed: 11/07/22 15:53> Sensory Exam: Normal double simultaneous stimulation for sensation <Shyla Nikolai PA - Last Filed: 11/07/22 15:53> Coordination: [id number] test normal <Shylatee Martinezgina PA - Last Filed: 11/07/22 15:53> Extrem: General: Yes normal to inspection, Yes full ROM and Yes capillary refill normal <Shyla Martinezgina PA - Last Filed: 11/07/22 15:53> Psych: Appearance: grossly normal <Shylatee Martinezgina PA - Last Filed: 11/07/22 15:53> Mental Status: mental status grossly normal <Shylatee Martinezgina PA - Last Filed: 11/07/22 15:53> Affect: normal affect <Shylatee Martinezgina PA - Last Filed: 11/07/22 15:53> Attitude: cooperative <Shyla Menchaca PA - Last Filed: 11/07/22 15:53> Thought process: Normal thought process present <NIKITA Dubois - Last Filed: 11/07/22 15:53> Thought content: Normal thought content present <Shyla Menchaca PA - Last Filed: 11/07/22 15:53> Insight: Good insight present (Psych) <NIKITA Dubois - Last Filed: 11/07/22 15:53> Course Course Course Narrative: RME: 42yo F w/PMHx renal transplant in '00 c/o right groin abscess x2 mos. Admits drained at the beginning but yesterday grew/became red and painful. Is scheduled for outpatient general surgery consult on . Denies active drainage now. denies dysuria/hematuria Full HPI, ROS and PE to be performed by primary ED provider. <NIKITA Epstein - Last Filed: 11/07/22 14:57> Medications Administered Discontinued Medications Generic Name Dose Route Start Last Admin Trade Name Freq PRN Reason Stop Dose Admin Lidocaine HCl 5 ml 11/07/22 15:18 11/07/22 15:23 Lidocaine Hcl 1 % Mpf 5 Ml Vial SUBCUT 11/07/22 15:19 5 ml ONCE ONE Administration <NIKITA Epstein - Last Filed: 11/07/22 14:57> Medications Administered Discontinued Medications Generic Name Dose Route Start Last Admin Trade Name Freq PRN Reason Stop Dose Admin Lidocaine HCl 5 ml 11/07/22 15:18 11/07/22 15:23 Lidocaine Hcl 1 % Mpf 5 Ml Vial SUBCUT 11/07/22 15:19 5 ml ONCE ONE Administration <NIKITA Dubois - Last Filed: 11/07/22 15:53> Medical Decision Making Medical Decision Making MDM Narrative: Patient is a 42 year old assigned female at with a history of kidney transplant in 1999 presenting to the emergency department today with a right groin abscess. Patient's physical exam was as noted in the physical exam portion of this chart. The area of concern did not have any fluctuance and thus, was not appropriate to drain further then it had already drained itself. I explained this in detail to the patient. We discussed, in detail, the risks vs. benefits of the patient receiving 1 15mg injection of toradol IM for the pain given her history of kidney transplant. Patient verbalized understanding and stated that she would like the shot anyway. Patient expressed to me that she has been battling an ongoing vaginal yeast infection and vaginal itchiness/discharge that she would like treated as well. I explained my physical exam findings to the patient. I answered all questions asked by the patient. I stressed the importance of the patient taking her medication as prescribed. I stressed the importance of the patient following up with her primary care provider and the general surgeon. I stressed the importance of the patient returning to the emergency department immediately if her symptoms were to worsen or if she were to develop any dizziness, shortness of breath, difficulty breathing, chest pain, blurry vision, loss of vision, nausea, vomiting, abdominal pain, fever, chills, back pain, or any other complaints. Patient verbalized agreement and understanding with this treatment plan and discharge. <NIKITA Dubois - Last Filed: 11/07/22 15:53> Differential Diagnosis Differential Diagnoses: The differential diagnosis associated with the presentation includes <NIKITA Dubois Last Filed: 11/07/22 15:53> groin abscess, vaginal yeast, vaginal BV <NIKITA Dubois Last Filed: 11/07/22 15:53> Discharge Plan Discharge Clinical Impression: Abscess <NIKITA Epstein Last Filed: 11/07/22 14:57> Patient Disposition: Home, Self-Care <NIKITA Epstein Last Filed: 11/07/22 14:57> Instructions: Abscess (ED) <NIKITA Epstein Last Filed: 11/07/22 14:57> Additional Instructions: Continue applying warm compresses to the area. Follow up with your primary care provider. Follow up with the general surgeons office as scheduled on 11/12/2022. Return to the emergency department immediately if your symptoms worsen or if you develop any dizziness, shortness of breath, difficulty breathing, chest pain, blurry vision, loss of vision, nausea, vomiting, abdominal pain, fever, chills, back pain, or any other complaints. <NIKITA Epstein Last Filed: 11/07/22 14:57> Prescriptions: New fluconazole [Diflucan] 150 mg tablet 150 mg PO Q3D Qty: 2 0RF metronidazole 500 mg tablet 500 mg PO BID 7 Days Qty: 14 0RF cephalexin 500 mg capsule 500 mg PO Q6H 7 Days Qty: 28 0RF No Action ondansetron 4 mg tablet,disintegrating 4 mg PO Q6-8H PRN (Reason: nausea and vomiting) Qty: 7 0RF <NIKITA Epstein Last Filed: 11/07/22 14:57> Referrals: Lebaka,Demetrius, MD [Primary Care Provider] - <NIKITA Epstein - Last Filed: 11/07/22 14:57> Stand Alone Forms: Work/School Release <NIKITA Epstein - Last Filed: 11/07/22 14:57> Print Language: Luxembourger <NIKITA Epstein - Last Filed: 11/07/22 14:57>
--- NOTE | 2022-11-07 15:21 | PC.NURSE ---
pt ambulatory to exam room ,changed into hospital attire,awaiting ED provider, call wayne within reach
[2022-11-07] MEDS: Lidocaine HCl 1 % MPF 5 ML VIAL SUBCUT (15:23)
[2022-11-07] MEDS: Ketorolac Tromethamine 15 MG/ML VIAL IM (15:52)
== END 2022-11-07 15:58 | disposition home or self-care (01) ==
PROVIDERS: Emergency Provider Emergency Medicine; PCP Internal Medicine
DX: L02.214 Cutaneous abscess of groin (principal)
CPT/HCPCS: 96372; 99283; 99284; J1885

== ENCOUNTER 2022-12-12 18:01 | Emergency (ER) | payer OTHER, MEDICAID, SELFPAY ==
--- NOTE | 2022-12-12 18:13 | ED.GENADULT ---
HPI - General Adult General Chief complaint: Anxiety Stated complaint: Recent surgery bleeding/ Anxiety Time Seen by Provider: 12/12/22 22:09 Source: patient Mode of arrival: ambulatory Limitations: no limitations History of Present Illness HPI narrative: Patient presents with 2 complaints. First of all, patient placed of anxiety. She has generalized pruritus. Her anxiety is severe. Intermittent. Patient has some stressors which have been exacerbating her anxiety. She takes clonazepam for as needed medication and she has some additional chronic medications as well. Patient use take Benadryl IV with to improve her symptoms however, she has developed some sort of intolerance or rather that it increases or anxiety. Additionally, patient complains of having some bleeding from his surgical site. She had a sebaceous cyst removed in her right groin. Since then she has had ongoing bleeding. There has been no redness or swelling. Patient is concerned because she is on CellCept. Related Data Previous Rx's Medication Instructions Recorded ondansetron 4 mg disintegrating 4 mg PO Q6-8H PRN nausea and 08/02/22 tablet vomiting #7 tabs cephalexin 500 mg capsule 500 mg PO Q6H 7 days #28 caps 11/07/22 fluconazole 150 mg tablet 150 mg PO Q3D 2 doses #2 tabs 11/07/22 (Diflucan) metronidazole 500 mg tablet 500 mg PO BID 7 days #14 tabs 11/07/22 Allergies Allergy/AdvReac Type Severity Reaction Status Date / Time cyclosporine [CYCLOSPORINE] Allergy Severe kidney Unverified 03/21/20 18:15 issues NSAIDS (Non-Steroidal Allergy Severe CAUTION Unverified 03/21/20 18:15 Anti-Inflamma FOR KIDNEY [NSAIDS (NON-STEROIDAL TRANSPLANT ANTI-INFLAMMA] trimethoprim [From BACTRIM] Allergy Severe GUILLERMO Unverified 03/21/20 18:15 FLARE UP simvastatin [SIMVASTATIN] Allergy Intermediate itchy Unverified 03/21/20 18:15 oxycodone Allergy Unknown Unknown Verified 12/12/22 18:41 tapentadol [From NUCYNTA] AdvReac Severe URINARY Unverified 03/21/20 18:15 RETENTION doxycycline [DOXYCYCLINE] AdvReac Mild NAUSEA Unverified 03/21/20 18:15 BACTRIM Allergy Unknown Unknown Uncoded 12/12/22 18:41 compazine Allergy Unknown Unknown Uncoded 12/12/22 18:41 Dicyclomine HCl Allergy Unknown Unknown Uncoded 12/12/22 18:41 PROGRAF Allergy Unknown Unknown Uncoded 12/12/22 18:41 DILAUDID AdvReac Unknown Unknown Uncoded 12/12/22 18:41 Review of Systems Review of Systems: CONSTITUTIONAL: Denies weight loss, fever and chills. HEENT: Denies changes in vision and hearing. RESPIRATORY: Denies SOB and cough. CV: Denies palpitations no CP. GI: Denies abdominal pain, nausea, vomiting and diarrhea. : Denies dysuria and urinary frequency. MSK: Denies myalgia and joint pain. SKIN: Denies rash positive pruritus. NEUROLOGICAL: Denies headache and syncope. PSYCHIATRIC: Denies recent changes in mood. Positive anxiety and depression. All other ROS are negative unless in HPI PMFSH Past Medical History Medical History Anxiety Arthritis Back pain Lupus Surgical History Kidney transplant recipient Transplant Social History Social History Alcohol intake: never Patient Tobacco Use Status: Never used Tobacco Substance Use Type: Marijuana Advance Directives: No Advance Directives Information Provided: No Physical Exam ED Vital Signs: Vital Signs - 24 hr 12/12/22 18:26 12/12/22 21:06 Temperature 97.7 F 97.1 F Pulse Rate 69 57 Respiratory Rate 18 18 Blood Pressure 109/50 L 118/70 Pulse Oximetry 100 98 Oxygen Delivery Method Room Air Room Air BMI result Body Mass Index 26.2 GEN: Well developed, no acute distress, alert, oriented HEENT: Normocephalic, atraumatic, normal external ears, nose appears normal, no oropharyngeal edema or exudates Eyes: Normal to appearance Neck: Supple, no lymphadenopathy Respiratory: Talks in complete sentences, no respiratory distress, clear to auscultation bilaterally Cardiovascular: Regular rate and rhythm, no murmurs rubs or gallops Abdomen: Soft, nontender, nondistended, no guarding, no rebound Back: No CVA tenderness Extremities: No clubbing cyanosis or edema Neurologic: No focal neurologic deficits, cranial nerves 2-12 intact, strength is 5/5 bilaterally Skin: No rash , mild wound dehiscence right groin, no surrounding cellulitic changes Psychiatric: Anxious Course Course Course Narrative: RME - 42 yo female with history of lupus, s/p kidney transplant in 1999, history of anxiety who presents to the evaluation for severe anxiety and depression for the last 2 days - reports her whole body feels itchy inside. took benzos with no relief. planning on doing outpatient program here on 01/01. admits to significant life stressors but denies SI, HI, AH, VH. no sleep in the last 4 days 12/08 had a right inguinal sebaceous cyst removal at [facility], has follow up Wednesday - reports ongoing oozing of blood and discomfort in the area. plan: evaluate surgical site for bleeding/infection, basic labs and possible CARE team evaluation Reevaluation(s) Reevaluation #1: Patient apparently eloped. I gave a ramona back with her several times. Attempted to contact the patient. There is no evidence of cellulitis. Time: 00:09 Medical Decision Making Medical Decision Making [facility] Narrative: 42-year-old female with history of anxiety presents for evaluation or anxiety which presents with anxious feelings as well as generalized pruritus. Prior treatment has not been effective. She is to take Benadryl but now has developed adverse reactions to intravenous Benadryl. I would like to give the patient a trial of Vistaril or hydroxyzine as may help her pruritus as well as her anxiety. She is on clonazepam at home. Additionally, patient is complaining of bleeding from the wound of her right groin. She is concerned it is infected. Examination did not reveal any cellulitic changes, discrete abscess. There is mild wound dehiscence. She has follow-up coming up in a couple dates. Differential Diagnosis Differential Diagnoses: The differential diagnosis associated with the presentation includes (Anxiety, depression, PTSD, mood disorder, cellulitis, wound dehiscence, wound infection) Lab Data [facility] Lab Attestation statement: I reviewed the patient's lab results. 12/12/22 18:59 12/12/22 19:40 Labs: Lab Results 12/12/22 12/12/22 12/12/22 Range/Units 18:59 18:59 18:59 WBC 10.8 (4.8-10.8) X10*3/uL RBC 4.28 (4.20-5.50) X10*6/uL Hgb 12.0 (12.0-16.0) g/dl Hct 38.5 (37.0-47.0) % MCV 90.0 (80.0-98.0) fL MCH 28.0 (27.0-33.0) pg MCHC 31.2 (31.0-35.0) g/dl RDW 12.5 (11.0-16.0) % Plt Count 317 (160-400) X10*3/uL MPV 9.6 (9.4-12.3) fL Immature Gran % (Auto) 0.5 H (0.0-0.4) % Neut % (Auto) 68.6 (45-73) % Lymph % (Auto) 21.6 (20-40) % [place] % (Auto) 8.4 (2-11) % Eos % (Auto) 0.6 (0-4) % Baso % (Auto) 0.3 (0-2) % Lymph # (Auto) 2.3 (1.2-4.9) X10*3/uL [place] # (Auto) 0.9 (0.1-1.2) X10*3/uL Eos # (Auto) 0.1 (0.0-0.4) X10*3/uL Baso # (Auto) 0.0 (0.0-0.2) X10*3/uL Abs Immat Gran (auto) 0.05 H (0.00-0.03) X10*3/uL Absolute Neuts (auto) 7.4 (2.0-8.3) x10*3/uL Absolute Nucleated RBC 0.000 (0.0-0.012) X10*3/uL Nucleated RBC % (auto) 0.0 (0.0-0.2) /100WBC Sodium (135-145) mmol/L Potassium (3.3-5.1) mmol/L Chloride (96-108) mmol/L Carbon Dioxide (22-29) mmol/L Anion Gap (12-20) BUN (9-16) mg/dL Creatinine (0.5-1.4) mg/dL Estim Creat Clear Calc Estimated GFR Random Glucose (60-115) mg/dL Calcium (8.4-10.2) mg/dL Magnesium (1.6-2.6) mg/dL Total Bilirubin (0.0-1.0) mg/dL Direct Bilirubin (0.0-0.5) mg/dL AST (5-31) U/L ALT (0-31) U/L Alkaline Phosphatase (39-117) U/L Total Protein (6.5-8.0) g/dL Albumin (3.5-5.0) g/dL Urine Color Yellow Urine Appearance Clear Urine pH 5.5 (5.0-9.0) Ur Specific Andrews <= 1.005 (1.005-1.025) Urine Protein Negative (Neg-Trace) mg/dL Urine Glucose (UA) Negative (Negative) mg/dL Urine Ketones Negative (Negative) mg/dL Urine Blood Moderate (2+) H (Negative) Urine Nitrite Negative (Negative) Ur Leukocyte Esterase Negative (Negative) Urine RBC 0-2 (0-2) /HPF Urine WBC 0-5 (0-5) /HPF Ur Squamous Epith Cells 6-10 (0-2) /HPF Urine Bacteria None Seen (None Seen) Hyaline Casts 0-2 (0-2) /LPF Urine Test NEGATIVE (NEGATIVE) Urine Opiates Screen (Not Detect) Urine Fentanyl Screen (Not Detect) Ur Barbiturates Screen (Not Detect) Ur Phencyclidine Scrn (Not Detect) Ur Amphetamines Screen (Not Detect) U Benzodiazepines Scrn (Not Detect) Urine Cocaine Screen (Not Detect) U Marijuana (THC) Screen (Not Detect) Ethyl Alcohol mg/dL 12/12/22 12/12/22 Range/Units 18:59 19:40 WBC (4.8-10.8) X10*3/uL RBC (4.20-5.50) X10*6/uL Hgb (12.0-16.0) g/dl Hct (37.0-47.0) % MCV (80.0-98.0) fL MCH (27.0-33.0) pg MCHC (31.0-35.0) g/dl RDW (11.0-16.0) % Plt Count (160-400) X10*3/uL MPV (9.4-12.3) fL Immature Gran % (Auto) (0.0-0.4) % Neut % (Auto) (45-73) % Lymph % (Auto) (20-40) % [place] % (Auto) (2-11) % Eos % (Auto) (0-4) % Baso % (Auto) (0-2) % Lymph # (Auto) (1.2-4.9) X10*3/uL [place] # (Auto) (0.1-1.2) X10*3/uL Eos # (Auto) (0.0-0.4) X10*3/uL Baso # (Auto) (0.0-0.2) X10*3/uL Abs Immat Gran (auto) (0.00-0.03) X10*3/uL Absolute Neuts (auto) (2.0-8.3) x10*3/uL Absolute Nucleated RBC (0.0-0.012) X10*3/uL Nucleated RBC % (auto) (0.0-0.2) /100WBC Sodium 139 (135-145) mmol/L Potassium 4.8 (3.3-5.1) mmol/L Chloride 107 (96-108) mmol/L Carbon Dioxide 24 (22-29) mmol/L Anion Gap 13 (12-20) BUN 15 (9-16) mg/dL Creatinine 1.45 H (0.5-1.4) mg/dL Estim Creat Clear Calc 47.4 Estimated GFR 40 Random Glucose 97 (60-115) mg/dL Calcium 9.3 D (8.4-10.2) mg/dL Magnesium 2.2 (1.6-2.6) mg/dL Total Bilirubin 0.2 (0.0-1.0) mg/dL Direct Bilirubin < 0.2 (0.0-0.5) mg/dL AST 25 (5-31) U/L ALT 37 H (0-31) U/L Alkaline Phosphatase 97 (39-117) U/L Total Protein 6.9 (6.5-8.0) g/dL Albumin 3.9 (3.5-5.0) g/dL Urine Color Urine Appearance Urine pH (5.0-9.0) Ur Specific Andrews (1.005-1.025) Urine Protein (Neg-Trace) mg/dL Urine Glucose (UA) (Negative) mg/dL Urine Ketones (Negative) mg/dL Urine Blood (Negative) Urine Nitrite (Negative) Ur Leukocyte Esterase (Negative) Urine RBC (0-2) /HPF Urine WBC (0-5) /HPF Ur Squamous Epith Cells (0-2) /HPF Urine Bacteria (None Seen) Hyaline Casts (0-2) /LPF Urine Test (NEGATIVE) Urine Opiates Screen POSITIVE H (Not Detect) Urine Fentanyl Screen Not Detected (Not Detect) Ur Barbiturates Screen Not Detected (Not Detect) Ur Phencyclidine Scrn Not Detected (Not Detect) Ur Amphetamines Screen Not Detected (Not Detect) U Benzodiazepines Scrn Not Detected (Not Detect) Urine Cocaine Screen Not Detected (Not Detect) U Marijuana (THC) Screen POSITIVE H (Not Detect) Ethyl Alcohol < 10 mg/dL Independent Historian Clinical information obtained from an independent historian. History obtained from or confirmed by: Other (Significant other) Prescription Management I considered prescription management with: Antibiotic Chronic Conditions Patient?s care impacted by: Other (Kidney transplant on immunosuppressive medication) Discharge Plan Discharge Clinical Impression: Acute anxiety Patient Disposition: Elopement Prescriptions: No Action ondansetron 4 mg tablet,disintegrating 4 mg PO Q6-8H PRN (Reason: nausea and vomiting) Qty: 7 0RF fluconazole [Diflucan] 150 mg tablet 150 mg PO Q3D Qty: 2 0RF metronidazole 500 mg tablet 500 mg PO BID 7 Days Qty: 14 0RF cephalexin 500 mg capsule 500 mg PO Q6H 7 Days Qty: 28 0RF
[2022-12-12 18:26] VITALS: BP 109/50; PULSE 69; RESP 18; TEMP 36.5; O2SAT 100; BMI 26.2
[2022-12-12 19:04] LABS: MANUAL DIFF FLAG NO
[2022-12-12 19:06] LABS: Basophils Percent Auto 0.3 % (0-2); Eosinophils Absolute Auto 0.1 X10*3/uL (0.0-0.4); Eosinophils Percent Auto 0.6 % (0-4); Hematocrit 38.5 % (37.0-47.0); Imm Gran Abs Auto 0.05 X10*3/uL (0.00-0.03); Imm Gran Pct Auto 0.5 % (0.0-0.4); Lymphocytes Absolute Auto 2.3 X10*3/uL (1.2-4.9); Lymphocytes Percent Auto 21.6 % (20-40); Mean Corpuscular HGB Conc 31.2 g/dl (31.0-35.0); Mean Platelet Volume 9.6 fL (9.4-12.3); Monocytes Absolute Auto 0.9 X10*3/uL (0.1-1.2); Monocytes Percent Auto 8.4 % (2-11); Neutrophils Absolute Auto 7.4 x10*3/uL (2.0-8.3); Neutrophils Percent Auto 68.6 % (45-73); Platelet Count 317 X10*3/uL (160-400); Red Blood Count 4.28 X10*6/uL (4.20-5.50); Red Cell Distribution Width 12.5 % (11.0-16.0); UPreg QC Valid YES; Urine Pregnancy NEGATIVE (NEGATIVE); White Blood Count 10.8 X10*3/uL (4.8-10.8)
[2022-12-12 19:08] LABS: Appearance Urine Clear; Color Urine Yellow; Glucose Urine UA Negative (Negative); Leukocyte Esterase Urine Negative (Negative); Nitrite Urine Negative (Negative); PH 5.5 (5.0-9.0); Specific Gravity - Urine <= 1.005 (1.005-1.025); UMIC TRIGGER UACC YES; Urine Blood Moderate (2+) (Negative); Urine Ketones Negative (Negative); Urine Protein Negative (Neg-Trace)
[2022-12-12 19:18] LABS: Amphetamine Screen Urine Not Detected (Not Detect); Barbiturates, Urine Not Detected (Not Detect); Benzodiazepines Screen Urine Not Detected (Not Detect); Cannabinoid Screen Urine POSITIVE (Not Detect); Cocaine Screen Urine Not Detected (Not Detect); Fentanyl, urine Not Detected (Not Detect); Opiate Screen Urine POSITIVE (Not Detect); Phencyclidine Screen Urine Not Detected (Not Detect)
[2022-12-12 20:05] LABS: Alanine Aminotransferase 37 U/L (0-31); Albumin Level 3.9 g/dL (3.5-5.0); Alkaline Phosphatase 97 U/L (39-117); Anion Gap 13 (12-20); Aspartate Amino Transferase 25 U/L (5-31); Bilirubin Direct < 0.2 mg/dL (0.0-0.5); Bilirubin Total 0.2 mg/dL (0.0-1.0); Blood Urea Nitrogen 15 mg/dL (9-16); Calcium 9.3 mg/dL (8.4-10.2); Carbon Dioxide 24 mmol/L (22-29); Chloride 107 mmol/L (96-108); Creatinine Clr Calc Pharmacy 47.4; Estimated Glomerular Filt Rate 40; Ethanol < 10 mg/dL; Glucose Random 97 mg/dL (60-115); Magnesium 2.2 mg/dL (1.6-2.6); Potassium 4.8 mmol/L (3.3-5.1); Sodium 139 mmol/L (135-145); Total Protein 6.9 g/dL (6.5-8.0)
[2022-12-12 21:06] VITALS: BP 118/70; PULSE 57; RESP 18; TEMP 36.2; O2SAT 98
[2022-12-12 22:51] LABS: Bacteria Urine None Seen (None Seen); Hyaline Casts Urine 0-2 /LPF (0-2); RBC Urine 0-2 /HPF (0-2); WBC Urine 0-5 /HPF (0-5)
== END 2022-12-13 07:40 | disposition left against medical advice (07) ==
PROVIDERS: Physician Assistant; Emergency Provider Emergency Medicine; PCP Internal Medicine
DX: F41.9 Anxiety disorder, unspecified (principal); Z79.899 Other long term (current) drug therapy
CPT/HCPCS: 36415; 80048; 80076; 80307; 81001; 81025; 83735; 85025; 99283

== ENCOUNTER 2022-12-14 10:13 | Emergency (ER) | payer OTHER, MEDICAID, SELFPAY ==
[2022-12-14 10:26] VITALS: BP 105/73; PULSE 72; RESP 19; TEMP 36.6; O2SAT 98; BMI 26.2
--- NOTE | 2022-12-14 11:11 | ED_ITS ---
HPI - General Adult General Chief complaint: Anxiety Stated complaint: Body is itching/anxiety Time Seen by Provider: 12/14/22 10:42 Source: patient Mode of arrival: ambulatory Limitations: no limitations History of Present Illness HPI narrative: 42-year-old female status post renal transplant 23 years ago, lupus, anxiety, depression presenting to the emergency department with increasing anxiety, itchiness throughout entire body worsening over the past few days. Patient tells me she has a history of psychogenic puritis and is currently taking Ativan, clonazepam, Latuda, hydroxyzine and was recently told she was allergic to Benadryl so cannot take Benadryl. She comes in requesting that she get it is IV Ativan because it helps with her symptoms, she does not want p.o. Ativan because she has this at home. She does not want to speak to the care team as she has a history of anxiety and depression and has her own psychiatrist. Patient denies chest pain, shortness of breath, rash, nausea, vomiting, abd ominal pain, headache, vision changes, dizziness and weakness. Related Data Previous Rx's Medication Instructions Recorded ondansetron 4 mg disintegrating 4 mg PO Q6-8H PRN nausea and 08/02/22 tablet vomiting #7 tabs cephalexin 500 mg capsule 500 mg PO Q6H 7 days #28 caps 11/07/22 fluconazole 150 mg tablet 150 mg PO Q3D 2 doses #2 tabs 11/07/22 (Diflucan) metronidazole 500 mg tablet 500 mg PO BID 7 days #14 tabs 11/07/22 Allergies Allergy/AdvReac Type Severity Reaction Status Date / Time cyclosporine [CYCLOSPORINE] Allergy Severe kidney Verified 12/14/22 10:25 issues NSAIDS (Non-Steroidal Allergy Severe CAUTION Verified 12/14/22 10:25 Anti-Inflamma FOR KIDNEY [NSAIDS (NON-STEROIDAL TRANSPLANT ANTI-INFLAMMA] trimethoprim [From BACTRIM] Allergy Severe GUILLERMO Verified 12/14/22 10:25 FLARE UP simvastatin [SIMVASTATIN] Allergy Intermediate itchy Verified 12/14/22 10:25 oxycodone Allergy Unknown Unknown Verified 12/14/22 10:25 tapentadol [From NUCYNTA] AdvReac Severe URINARY Verified 12/14/22 10:25 RETENTION doxycycline [DOXYCYCLINE] AdvReac Mild NAUSEA Verified 12/14/22 10:25 BACTRIM Allergy Unknown Unknown Uncoded 12/14/22 10:25 compazine Allergy Unknown Unknown Uncoded 12/14/22 10:25 Dicyclomine HCl Allergy Unknown Unknown Uncoded 12/14/22 10:25 PROGRAF Allergy Unknown Unknown Uncoded 12/14/22 10:25 DILAUDID AdvReac Unknown Unknown Uncoded 12/14/22 10:25 Review of Systems Review of Systems: Constitutional : No Weight loss, No Fever, No Chills, No Fatigue, No Malaise ENT/Mouth : No sore throat, No Rhinorrhea Eyes: No Eye Pain, No Swelling, No Redness Cardiovascular : No Chest Pain, No SOB, No Dyspnea on Exertion, No Orthopnea, No Edema, No Palpitations Respiratory : No Cough, No Sputum, No Wheezing Gastrointestinal : No Nausea, No Vomiting, No Diarrhea, No Constipation, No abdominal Pain, No Hematochezia, No Melena Genitourinary : No Dysuria, No Urinary Frequency, No Hematuria, Musculoskeletal : No joint pain, No Myalgias, No Joint Swelling Skin : No Skin Lesions, No rash Neuro : No Weakness, No Numbness, No Dizziness, No Headache Psych : + Anxiety/Panic, No Depression All other systems reviewed and are negative Yes all other systems are reviewed and are negative [facility] Past Medical History Attestation statement: The following information was validated with the patient. Source: old records reviewed and nursing notes reviewed Medical History Anxiety Arthritis Back pain Lupus Surgical History Kidney transplant recipient Transplant Social History Social History Alcohol intake: never Patient Tobacco Use Status: Never used Tobacco Substance Use Type: Marijuana Physical Exam ED Vital Signs: Vital Signs - 24 hr 12/14/22 10:26 12/14/22 14:24 Temperature 98 F 98.6 F Pulse Rate 72 58 Respiratory Rate 19 18 Blood Pressure 105/73 125/59 L Pulse Oximetry 98 94 Oxygen Delivery Method Room Air Room Air BMI result Body Mass Index 26.2 vss Appearance: Alert.? Oriented X3.? No acute distress.? patient extremely anxious Head: Normocephalic, atraumatic, no step-offs or deformities Eyes: Pupils equal, round and reactive to light.? Neck: Normal inspection.? Neck supple.? patent airway. CVS: Normal heart rate and rhythm.? Pulses normal.? Respiratory: No respiratory distress.? Breath sounds normal.? Abdomen: Soft and nontender.? Skin: Skin warm and dry.? Normal skin color.? Normal skin turgor.? Extremities: No lower extremity edema.? No calf ttp. 5/5 strength to bilateral upper and lower extremities Neuro: Oriented X 3.? No motor deficit.? No sensory deficit. CN 2-12 intact Course Reevaluation(s) Reevaluation #1: Patient was evaluated by my attending who spoke to patient and reached out to patient's psychiatrist, offered p.o. medication however patient does not want p.o. medication at this time. We are waiting for a call back from patient's psychiatrist. Patient is not suicidal or homicidal. my attending recommended to wait for psychiatrist call back. This time patient to be placed into observation to allow more time for patient's psychiatrist to call back. Patient can be discharged at any time she is not on a Section 12. Time: 12:13 Reevaluation #2: I had a long conversation with patient's psychiatrist Dr. Byrd [phone], patient was also evaluated by the care team. Patient's psychiatrist recommends to give something to calm her down right now by mouth patient initially refused this however now is willing to take p.o. Ativan, p.o. Ativan helped a lot. She has a follow-up on January 07 with her psychiatrist and she is scheduled to start partial, care team offered for patient to start partial earlier however patient refusing. She denies SI and HI, no need for Section at this time. Patient accompanied by significant other who will drive her home. Not wanting a full psychiatric evaluation or inpatient admission at this time. Educated patient on diagnosis and treatment plan, answered all question, patient verbalizes understanding. At this time patient will be discharged home, advised to return with new or worsening symptoms. Educated on worrisome signs and symptoms and when to return. At this time I feel comfortable discharge home. Time: 14:49 Medications Administered Discontinued Medications Generic Name Dose Route Start Last Admin Trade Name Freq PRN Reason Stop Dose Admin Lorazepam 2 mg 12/14/22 13:08 12/14/22 13:27 Lorazepam 1 Mg Tablet PO 12/14/22 13:09 2 mg ONCE ONE Administration Medical Decision Making Medical Decision Making [facility] Narrative: 42-year-old female presents with increasing anxiety which is causing her itchiness history of psychogenic Pruritus physical examination benign. Vital signs stable. Airway patent. Likely anxiety versus panic versus psychogenic puritis. unlikely allergic reaction, threatened airway, anaphylaxis, rash. Plan care team evaluation. Patient requesting IV Ativan and I explained to her this is not an appropriate treatment, offered her p.o. however she states she already has at home. Patient requesting 2nd opinion will have her seen by Dr. Monroy Differential Diagnosis Differential Diagnoses: The differential diagnosis associated with the presentation includes Likely anxiety versus panic versus psychogenic puritis. unlikely allergic reaction, threatened airway, anaphylaxis, rash. Admission/Observation Consideration of admission/observation: Escalation of care including admission/observation considered Core Measures AMI core measures followed: Yes Measure exclusions: not indicated Critical Care Time Critical Care Time Critical Care Time: No Discharge Plan Discharge Clinical Impression: Acute anxiety, Psychogenic pruritus Patient Disposition: Home, Self-Care Instructions: Anxiety (ED) Additional Instructions: Take your medications as prescribed. If you were prescribed antibiotics today, it is important that you take your medication to their entirety, do not skip any doses, do not finish them early. Follow-up with your primary care provider this week. Return to the emergency department with new or worsening symptoms. Such as fevers, chills, chest pain, shortness of breath, nausea, vomiting, dizziness, headache, vision changes, lethargy, suicidal or homicidal ideation In case of emergency call 911 Prescriptions: No Action ondansetron 4 mg tablet,disintegrating 4 mg PO Q6-8H PRN (Reason: nausea and vomiting) Qty: 7 0RF fluconazole [Diflucan] 150 mg tablet 150 mg PO Q3D Qty: 2 0RF metronidazole 500 mg tablet 500 mg PO BID 7 Days Qty: 14 0RF cephalexin 500 mg capsule 500 mg PO Q6H 7 Days Qty: 28 0RF Referrals: [facility], [facility] [Provider Group] - 2 days Demetrius Roberto MD [Primary Care Provider] - 2 days
--- NOTE | 2022-12-14 13:26 | MHC.CARE ---
CARE Team responded to consult request to meet with this patient who has come to [facility] 6 times in the last year with primary complaints of pain, anxiety and itchiness, she requests IM medication to manage her symptoms. Spoke to patient in [facility] room 4 she was sitting on the end of the bed; her boyfriend seated in a chair. 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 Patient was irritable and questioned why she was not receiving the treatment she asked for, reluctant to discuss available supports and resources. She has an intake scheduled at [facility] on December 31, declined offer to move the appointment sooner to help with her anxiety symptoms. Patient was seen in July by the CARE Team and a referral to [facility], she denied knowing anything about that; was not called by them and today declined needing any help securing an outpatient provider, would ask her psychiatrist for recommendations. Patient did not appear to be in psychiatric crisis, there was no evidence of thought disorder or nereyda, she has declined he has providers and resources available to her therefore no further interventions indicated. Case discussed with provider, NIKITA Panchal
[2022-12-14] MEDS: LORazepam 1 MG TABLET 2 MG PO (13:27)
[2022-12-14 14:24] VITALS: BP 125/59; PULSE 58; RESP 18; TEMP 37; O2SAT 94
--- NOTE | 2022-12-14 14:58 | PC.NURSE ---
PT STATES I AM FEELING BETTER , MLP (VIKTOR) AWARE.
== END 2022-12-14 14:59 | disposition home or self-care (01) ==
PROVIDERS: Emergency Provider Emergency Medicine; PCP Internal Medicine
DX: F41.9 Anxiety disorder, unspecified (principal); F45.8 Other somatoform disorders
CPT/HCPCS: 99283; 99284

== ENCOUNTER → 2023-01-12 09:30 | Outpatient (BNV) | payer OTHER, MEDICAID, SELFPAY | PROVIDERS: Visit Provider Psychiatry & Neurology Psychiatry | DX: F33.2 Major depressive disorder, recurrent severe without psychotic features (principal); F43.10 Post-traumatic stress disorder, unspecified | CPT/HCPCS: 90792 ==

== ENCOUNTER → 2023-01-15 09:15 | Outpatient (BNV) | payer OTHER, MEDICAID, SELFPAY | PROVIDERS: Visit Provider Psychiatry & Neurology Psychiatry | DX: F33.2 Major depressive disorder, recurrent severe without psychotic features (principal) | CPT/HCPCS: 99212; 99213 ==

== ENCOUNTER 2023-01-19 14:02 | Outpatient (REF) | payer OTHER, MEDICAID, SELFPAY ==
[2023-01-19 16:08] LABS: Alanine Aminotransferase 42 U/L (0-31); Alkaline Phosphatase 120 U/L (39-117); Anion Gap 15 (12-20); Aspartate Amino Transferase 39 U/L (5-31); Bilirubin Total 0.2 mg/dL (0.0-1.0); Blood Urea Nitrogen 24 mg/dL (9-16); Calcium 9.3 mg/dL (8.4-10.2); Carbon Dioxide 22 mmol/L (22-29); Chloride 107 mmol/L (96-108); Estimated Glomerular Filt Rate 24; Glucose Random 88 mg/dL (60-115); Potassium 4.6 mmol/L (3.3-5.1); Sodium 139 mmol/L (135-145); Total Protein 7.4 g/dL (6.5-8.0)
[2023-01-19 16:30] LABS: Free T4 (Free Thyroxine) 0.87 ng/dL (0.71-1.85); Thyroid Stimulating Hormone 0.37 uIU/mL (0.32-4.0)
[2023-01-19 16:38] LABS: Folate 9.9 ng/mL (> or = 4.0); Vitamin B12 567 pg/mL (200-900)
== END 2023-01-19 14:03 | disposition home or self-care (01) ==
LOC: HO.LAB 14:02
PROVIDERS: PCP Psychiatry & Neurology Psychiatry; Visit Provider Psychiatry & Neurology Psychiatry
DX: F33.1 Major depressive disorder, recurrent, moderate (principal); F41.1 Generalized anxiety disorder
CPT/HCPCS: 36415; 80053; 82607; 82746; 84439; 84443

== ENCOUNTER 2023-01-27 09:45 | Outpatient (RCR) | payer OTHER, MEDICAID, SELFPAY ==
[2023-01-12 11:33] VITALS: BP 131/72; PULSE 55; TEMP 36.8
[2023-01-12 11:35] VITALS: BMI 25.3
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
--- NOTE | 2023-01-12 22:03 | P.HPPSP_ITS ---
HPI Date of Service: 01/12/23 Chief Complaint: anxiety,depression Sources of Information: patient interviewed, chart reviewed and crisis/core team assessment reviewed Additional Sources of Information: dr spicer [facility] Narrative: The patient is a 42-year-old female history of recurrent depression anxiety who has had depression often on for many years comes the PHP secondary to worsening depression helplessness hopelessness in the context of the past few months of it to duration of her longstanding relationship with her partner who had had an affair. Patient has been increasingly despondent over number of months reportedly she had been stable on a combination of sertraline and bupropion according Dr. Evangelista who had added Latuda recently. It appears that the patient had recently discontinued bupropion she is on sertraline 100 mg unclear if the patient has been taking Latuda she has felt increasingly hopeless helpless. Patient does have a history of a kidney transplant she is on immunosuppressive medication Past Psychiatric History: History of recurrent depression no psychiatric hospitalizations History of renal transplant [facility] Medical History (Updated 01/12/23 @ 22:29 by Gene Rizo MD) Anxiety Arthritis Back pain Gastritis [place] (hard of hearing) Lupus Migraines Rheumatoid arthritis Surgical History (Updated 01/12/23 @ 10:15 by Emma Munson RN) H/O knee surgery H/O wrist surgery Hx of cholecystectomy Kidney transplant recipient Transplant Social History: Patient was born in [place] moved to [place] at 4 years old. Patient developed lupus as a child patient was previously history of miscarriage patient does have a brother history of medical trauma Substance History: none Trauma History: medical trauma childhood Diagnostics Vital Signs (24Hr): Vital Signs - 24 hr 01/12/23 11:33 Temperature 98.2 F Pulse Rate 55 Blood Pressure 131/72 BMI result Body Mass Index 25.3 Meds/Allergies Meds Home Medications Medication Instructions Recorded Confirmed Type clonazepam 2 mg tablet 2 mg PO BEDTIME 01/12/23 01/12/23 History hydrocodone 7.5 mg-acetaminophen 1 tab PO QD-TID severe pain 01/12/23 01/12/23 History 325 mg tablet lorazepam 1 mg tablet 1 - 2 mg PO BEDTIME PRN insomnia 01/12/23 01/12/23 History mycophenolate mofetil 500 mg tablet 1,000 mg PO BID 01/12/23 01/12/23 History pantoprazole 40 mg tablet,delayed 40 mg PO BID 01/12/23 01/12/23 History release progesterone micronized 100 mg 100 mg PO BEDTIME 01/12/23 01/12/23 History capsule sertraline 100 mg tablet 100 mg PO BEDTIME 01/12/23 01/12/23 History Allergies Allergies Allergy/AdvReac Type Severity Reaction Status Date / Time cyclosporine [CYCLOSPORINE] Allergy Severe kidney Verified 12/14/22 10:25 issues NSAIDS (Non-Steroidal Allergy Severe CAUTION Verified 12/14/22 10:25 Anti-Inflamma FOR KIDNEY [NSAIDS (NON-STEROIDAL TRANSPLANT ANTI-INFLAMMA] trimethoprim [From BACTRIM] Allergy Severe GUILLERMO Verified 12/14/22 10:25 FLARE UP simvastatin [SIMVASTATIN] Allergy Intermediate itchy Verified 12/14/22 10:25 oxycodone Allergy Unknown Unknown Verified 12/14/22 10:25 tapentadol [From NUCYNTA] AdvReac Severe URINARY Verified 12/14/22 10:25 RETENTION doxycycline [DOXYCYCLINE] AdvReac Mild NAUSEA Verified 12/14/22 10:25 BACTRIM Allergy Unknown Unknown Uncoded 12/14/22 10:25 compazine Allergy Unknown Unknown Uncoded 12/14/22 10:25 Dicyclomine HCl Allergy Unknown Unknown Uncoded 12/14/22 10:25 PROGRAF Allergy Unknown Unknown Uncoded 12/14/22 10:25 DILAUDID AdvReac Unknown Unknown Uncoded 12/14/22 10:25 Mental Status Exam Mental Status Exam Patient Appearance: Well Grooomed Patient Orientation: Person, Place, Time and Situation Level of Consciousness: Awake and Appropriate Patient Behavior: Appropriate and Good Eye Contact Mood Description: Depressed, Anxious and Apprehensive Affect Description: Appropriate and Constricted Patient Cognition Impaired: No Ability to Follow Directions: Good Speech Pattern: Clear Memory Description: Intact Hallucinations: None Delusions: Not Present Thought Process: Intact and Goal Oriented Thought Content: positive for Goal Oriented, positive for Preoccupation, negative for Suicidal Ideation or negative for Homicidal Ideation Depressive Symptoms: Increased Anxiety, Increased Irritability, Hopelessness, In creased Fatigue, Loss of Energy and Difficulty Concentrating Judgement: Good Judgement and Insight: Increased helplessness hopelessness Assessment & Plan Assessment & Plan (1) Major depressive disorder, recurrent severe without psychotic features: Status: Acute Code(s): F33.2 - Major depressive disorder, recurrent severe without psychotic features (2) Post traumatic stress disorder (PTSD): Status: Acute Code(s): F43.10 - Post-traumatic stress disorder, unspecified Plan Worsening recurrent depression coordinate care with Dr. Spicer discussed with patient TMS options after partial hospital consider augmentation with L methyl folate patient did not want mirtazapine secondary to with weight gain but would consider given anxiety and dysphoria check labs in TSH will discuss augmentation with Rexulti or Vrjessicalar patient denies active SI does have severe anxiety social withdrawal anhedonia hopelessness helplessness [facility] care recommended Patient educated on: diagnosis and medication risk/benefits Informed Consent: understands Reason for continued partial hosp. stay Substantial Risk for: inability to function and rapid decompensation Certification I certify that partial hospital treatment is medically necessary due to the symptoms and problems resulting from the patient's mental illness and the failure to treat the patient at the partial hospital level of care would likely result in the patient requiring inpatient psychiatric care which could not be prevented at a less intensive level of care. Time Spent With Patient Time: Total time managing care of this patient today ____ minutes.
--- NOTE | 2023-01-14 16:45 | HO.PHP ---
Clients case was reviewed and opened today in treatment team.
--- NOTE | 2023-01-15 10:31 | P.PNPSP_ITS ---
Subjective Subjective Date of Service: 01/15/23 Reason For Visit: anxiety,depression Healthcare Proxy: No Guardianship: No Medical Problems Affecting Mental Status: No Interim History: Kelly is seen for follow-up as part of her partial hospital engagement. She has a longstanding history of depression and severe anxiety and does have an outpatient psychiatrist Dr. Champion. She has been and current Sandy is on Zoloft 100 mg nightly, Klonopin 2 mg nightly and Ativan on a p.r.n. basis is. She states that with his very severe anxiety she gets itchy all over and the only thing that has been helpful is taking another mg of Klonopin. She does not tolerate antihistamines and has not tried Claritin-D. She does have 3 tablets of Klonopin left and does have a good supply of Ativan and Zoloft. When she does get the itching it may last 3 or 4 days. Medication Compliance: Yes Side effects from medications: No Attending Groups: Yes Review of Systems Acute medical concerns: No Review of Systems Review of Systems Except for itching when extremely anxious Yes all other systems are reviewed and are negative Mental Status Exam Mental Status Exam Narrative: In today's visit she is alert, oriented and pleasant. Normal speech. Good eye contact. Affect is appropriate and constricted. She was very tearful and cr andrew when talking about the itching. No signs of psychosis. No suicidal ideations. Cognitively is intact. Judgment is intact Diagnostics Vital Signs (24Hr): BMI result Body Mass Index 25.3 Assessment & Plan Assessment & Plan (1) Post traumatic stress disorder (PTSD): Status: Acute Code(s): F43.10 - Post-traumatic stress disorder, unspecified (2) Major depressive disorder, recurrent severe without psychotic features: Status: Acute Code(s): F33.2 - Major depressive disorder, recurrent severe without psychotic features Plan Continue current medications. To taking more Klonopin without his knowledge in [place]. She has Ativan to use on a p.r.n. basis if she does not get a hold of him before the weekend. She is also to try Claritin-D. I also suggested using the Zoloft during the day which might be more helpful with her anxiety. She is to continue the partial program. Patient educated on: medication risk/benefits Certification I certify that partial hospital treatment is medically necessary due to the symptoms and problems resulting from the patient's mental illness and the failure to treat the patient at the partial hospital level of care would likely result in the patient requiring inpatient psychiatric care which could not be prevented at a less intensive level of care. Total time managing care of this patient today ____ minutes. Discharge Plan Discharge Attending provider: Cesar Boothe Medications: New lurasidone 20 mg tablet 20 mg PO DAILY Qty: 30 0RF Rx Instructions: must administer with food (at least 350 calories) No Action sertraline 100 mg tablet 100 mg PO BEDTIME clonazepam 2 mg tablet 2 mg PO BEDTIME lorazepam 1 mg tablet 1 - 2 mg PO BEDTIME PRN (Reason: insomnia) hydrocodone-acetaminophen 7.5-325 mg tablet 1 tab PO QD-TID pantoprazole 40 mg tablet,delayed release (DR/EC) 40 mg PO BID progesterone micronized 100 mg capsule 100 mg PO BEDTIME mycophenolate mofetil 500 mg Tablet 1,000 mg PO BID Patient Comments: Pharmacy stated 3 tabs 1500 mg BID however patient reports she takes 2 tabs 1000 mg BID. Her doctor is aware however the prescription has not changed per patient. Stand Alone Forms: Patient Portal Discharge page Patient Education: Brexpiprazole (By mouth)
--- NOTE | 2023-01-25 08:45 | HO.PHP ---
[facility] staff reached out to [employer] to gather clarification around OP therapist providers in network. [facility] staff spoke with Cristina who informed the clinician that she needs to speak to someone in member service for claim doc. [facility] staff was receptive. Reference # [id number] PHP staff called back and spoke to the powerplant operator to be paged to member service claim. [facility] staff spoke to Jones who said they directed the call to him because member service for claim doc is not open until 9 AM. [facility] staff was receptive and explored reference number for call. Jones stated it is the same as Cristina. [facility] staff was receptive.
--- NOTE | 2023-01-25 09:45 | HO.PHP ---
[facility] staff called member service for claim doc, in which she had spoken to Venkata. Venkata provided the same information as Rajeev, which is she can seek services anywhere. PHP staff stated that people Kelly has reached out to, do not take the insurance and she would like a provider list. Venkata mentioned that they don't have a provider list but she can do some research to see some suggestions that have been made. Venkata asked the clinician for her email and she stated she will try to get the information to me by the end of the day. [facility] staff was receptive. Reference #- [id number]
--- NOTE | 2023-01-25 15:09 | HO.PHP ---
[facility] staff followed up with Kelly around OP services and asked if she has been able to find any individuals she would like the clinician to refer her to. Kelly noted that she had contacted 2 individuals and is awaiting to hear back from them. [facility] staff was receptive and stated she contacted her insurance company and is awaiting on email of provider suggestions since they did not have a list available. Nolviais also mentioned she will contact them as well. [facility] staff asked Kelly if she is opposed to the agencies she informed her of when they reviewed the treatment plan. Kelly stated she does not want to go to those places because she works closely with them for her job. [facility] staff was receptive.
--- NOTE | 2023-01-26 11:21 | HO.PHPPROGNO ---
Subjective Subjective Date of Service: 01/26/23 Reason For Visit: anxiety,depression Healthcare Proxy: No Guardianship: No Medical Problems Affecting Mental Status: No Interim History: This is a follow-up visit with Kelly during her partial hospital engagement. She is ending with the program tomorrow but would like to extend her [place] MA by close to a month. I did extended to 01/29 and she will talk to her psychiatrist about another month of extension which I did not feel comfortable providing. She has enough of her medications. She states that she found the program quite helpful and gained a lot of information and new skills. Current medications were reviewed and she will maintain them and will follow-up with her psychiatrist at the end of February. Medication Compliance: Yes Side effects from medications: No Attending Groups: Yes Review of Systems Review of Systems Yes all other systems are reviewed and are negative Mental Status Exam Mental Status Exam Narrative: In today's visit she is alert, oriented and pleasant. Normal speech. Good eye contact. Affect is appropriate and constricted. She was very tearful and crying when talking about the itching. No signs of psychosis. No suicidal ideations. Cognitively is intact. Judgment is intact Diagnostics Vital Signs (24Hr): BMI result Body Mass Index 25.3 Assessment & Plan Assessment & Plan (1) Major depressive disorder, recurrent severe without psychotic features: Status: Acute Code(s): F33.2 - Major depressive disorder, recurrent severe without psychotic features Plan She will be discharged tomorrow and her FLMA was extended till 01/29 Certification I certify that partial hospital treatment is medically necessary due to the symptoms and problems resulting from the patient's mental illness and the failure to treat the patient at the partial hospital level of care would likely result in the patient requiring inpatient psychiatric care which could not be prevented at a less intensive level of care. Total time managing care of this patient today ____ minutes. Discharge Plan Discharge Attending provider: Cesar Boothe Medications: New lurasidone 20 mg tablet 20 mg PO DAILY Qty: 30 0RF Rx Instructions: must administer with food (at least 350 calories) No Action sertraline 100 mg tablet 100 mg PO BEDTIME clonazepam 2 mg tablet 2 mg PO BEDTIME lorazepam 1 mg tablet 1 - 2 mg PO BEDTIME PRN (Reason: insomnia) hydrocodone-acetaminophen 7.5-325 mg tablet 1 tab PO QD-TID pantoprazole 40 mg tablet,delayed release (DR/EC) 40 mg PO BID progesterone micronized 100 mg capsule 100 mg PO BEDTIME mycophenolate mofetil 500 mg Tablet 1,000 mg PO BID Patient Comments: Pharmacy stated 3 tabs 1500 mg BID however patient reports she takes 2 tabs 1000 mg BID. Her doctor is aware however the prescription has not changed per patient. pramipexole 0.125 mg Tablet 0.125 mg PO BEDTIME Stand Alone Forms: Patient Portal Discharge page Patient Education: Brexpiprazole (By mouth)
--- NOTE | 2023-01-27 15:42 | HO.PHP ---
[facility] staff provided Kelly with the email provided from her insurance company with 4 outpatient therapist who take her insurance. We attempted to call the number provided, in which it was [facility] and they stated the individual we were looking for no longer works there and they don't take that insurance. [facility] staff looked up the individual we just tried to call and she is currently located in [place]. [facility] staff emailed [employer] her information to follow up with her around services. There were two individuals on the provider list that specialize in children and adolescent. Kelly appreciated all the work the staff member has done to get clarification on insurance and mentioned that her coworkers are also having a challenging time with finding providers. Kelly voiced she is going to continue with an individual named Emma through the insurance company and try to have them call to get approval. [facility] staff was receptive.
--- NOTE | 2023-01-27 15:48 | HO.PHP ---
Lianexis is going to continue with her med provider Dr. Randal Spicer from [place]. The next scheduled appointment is March 01, 2023 at 3:30 PM.
== END 2023-01-27 23:59 | disposition home or self-care (01) ==
LOC: HO.PHPA 09:45
PROVIDERS: Visit Provider Psychiatry & Neurology Psychiatry
DX: F33.2 Major depressive disorder, recurrent severe without psychotic features (principal); F43.10 Post-traumatic stress disorder, unspecified; Z79.899 Other long term (current) drug therapy
CPT/HCPCS: 90791; 90853

== ENCOUNTER → 2023-07-22 16:00 | Outpatient (BNV) | payer OTHER, SELFPAY | PROVIDERS: Visit Provider Psychiatry & Neurology Psychiatry | DX: F33.2 Major depressive disorder, recurrent severe without psychotic features (principal); F43.10 Post-traumatic stress disorder, unspecified | CPT/HCPCS: 90867; 90868 ==

== ENCOUNTER 2023-09-30 16:30 | Outpatient (RCR) | payer OTHER, MEDICAID, SELFPAY ==
--- NOTE | 2023-06-07 15:55 | P.CONTMS_ITS ---
History of Present Illness General Data Date of Service: 06/07/23 Reason for consult: TMS evaluation Requesting provider: Randal Spicer History of Present Illness Patient interviewed records reviewed from [facility] and Dr. Spicer The patient is a 42-year-old female a long history depression going back at least 5 years in history PTSD and anxiety secondary to early morning medical issues including lupus lupus arthritis kidney disease and eventual transplant. Current PHQ-9 is 18. 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 She tends to ruminate has extensive chronic worry is I a dysphoria low energy helplessness hopelessness she ever have a quality of life. This has been interfering with her relationship with her long-term male partner and at work. She was recently at [facility]. She has had ongoing counseling for expanded period of time with Dr. Cano she did long-term cognitive behavioral counseling. Patient not currently in active therapy with Dr. Cano she has been see Dr. Swan or is regularly Current medications include clonazepam 2 mg twice a day to did 20 mg daily was on 40 mg previously pramipexole was added for augmentation she is on sertraline 100 mg in addition. Wellbutrin 100 b.i.d. has been discontinued Has felt depressed x yrs gf 2 yrs ago was very problematic to her Past Psychiatric History/Medication Trials: prozac up to 40 mg buspar 15 bid for augmentation abilify 10 mg for augmentation seroquel up to 100 mg cymbalta 60 mg during this episode [facility] Medical History (Updated 01/12/23 @ 22:29 by Gene Rizo MD) Migraines [place] (hard of hearing) Rheumatoid arthritis Gastritis Anxiety Back pain Arthritis Lupus Narrative: Status post renal transplant Surgical History (Updated 01/12/23 @ 10:15 by Emma Munson RN) H/O wrist surgery H/O knee surgery Hx of cholecystectomy Transplant Kidney transplant recipient Social History: Patient was born in [place] moved to [place] at 4 years old. Patient developed lupus as a child patient was previously history of miscarriage patient does have a brother history of medical trauma Substance History: none Trauma History: medical trauma childhood Meds/Allergies Meds Home Medications Medication Instructions Recorded Confirmed Type clonazepam 2 mg tablet 2 mg PO BEDTIME 01/12/23 01/12/23 History hydrocodone 7.5 mg-acetaminophen 1 tab PO QD-TID severe pain 01/12/23 01/12/23 History 325 mg tablet lorazepam 1 mg tablet 1 - 2 mg PO BEDTIME PRN insomnia 01/12/23 01/12/23 History mycophenolate mofetil 500 mg tablet 1,000 mg PO BID 01/12/23 01/12/23 History pantoprazole 40 mg tablet,delayed 40 mg PO BID 01/12/23 01/12/23 History release progesterone micronized 100 mg 100 mg PO BEDTIME 01/12/23 01/12/23 History capsule sertraline 100 mg tablet 100 mg PO BEDTIME 01/12/23 01/12/23 History pramipexole 0.125 mg tablet 0.125 mg PO BEDTIME 01/19/23 01/19/23 History Narrative: Latuda 20 mg daily Allergies Allergies Allergy/AdvReac Type Severity Reaction Status Date / Time cyclosporine [CYCLOSPORINE] Allergy Severe kidney Verified 12/14/22 10:25 issues NSAIDS (Non-Steroidal Allergy Severe CAUTION Verified 12/14/22 10:25 Anti-Inflamma FOR KIDNEY [NSAIDS (NON-STEROIDAL TRANSPLANT ANTI-INFLAMMA] trimethoprim [From BACTRIM] Allergy Severe GUILLERMO Verified 12/14/22 10:25 FLARE UP simvastatin [SIMVASTATIN] Allergy Intermediate itchy Verified 12/14/22 10:25 oxycodone Allergy Unknown Unknown Verified 12/14/22 10:25 tapentadol [From NUCYNTA] AdvReac Severe URINARY Verified 12/14/22 10:25 RETENTION doxycycline [DOXYCYCLINE] AdvReac Mild NAUSEA Verified 12/14/22 10:25 BACTRIM Allergy Unknown Unknown Uncoded 12/14/22 10:25 compazine Allergy Unknown Unknown Uncoded 12/14/22 10:25 Dicyclomine HCl Allergy Unknown Unknown Uncoded 12/14/22 10:25 PROGRAF Allergy Unknown Unknown Uncoded 12/14/22 10:25 DILAUDID AdvReac Unknown Unknown Uncoded 12/14/22 10:25 Mental Status Exam Mental Status Exam Patient Appearance: Well Grooomed Patient Orientation: Person, Place, Time and Situation Level of Consciousness: Awake and Appropriate Patient Behavior: Appropriate and Good Eye Contact Mood Description: Depressed, Anxious and Apprehensive Affect Description: Appropriate and Constricted Patient Cognition Impaired: No Ability to Follow Directions: Good Speech Pattern: Clear Memory Description: Intact Hallucinations: None Delusions: Not Present Thought Process: Intact and Goal Oriented Thought Content: positive for Goal Oriented, positive for Preoccupation, negative for Suicidal Ideation or negative for Homicidal Ideation Depressive Symptoms: Increased Anxiety, Increased Irritability, Hopelessness, Increased Fatigue, Loss of Energy and Difficulty Concentrating Judgement: Good Judgement and Insight: Increased helplessness hopelessness Assessment & Plan Assessment & Plan (1) Major depressive disorder, recurrent severe without psychotic features: Status: Acute Code(s): F33.2 - Major depressive disorder, recurrent severe without psychotic features (2) Post traumatic stress disorder (PTSD): Status: Acute Code(s): F43.10 - Post-traumatic stress disorder, unspecified Plan Patient has no medical contraindications to TMS. No history of surgery above the head or neck no metallic implants no cochlear implant no pacemaker medically the patient has history of lupus status post renal transplant no history of seizures does have a history of [id number] migraine patient has been in this depression number of years has tried a number of different antidepressants and augmentation strategies with Seroquel Tanner Ribeiro is fearful of changing medication further has not responded has at other times had adverse effects. Patient would be a TMS candidate literature reviewed with patient questions answered will try and submit for authorization Total time managing care of this patient today __60__ minutes.
--- NOTE | 2023-07-22 22:12 | P.PNPS_ITS ---
TMS Daily Progress Note Daily TMS Progress Note Date of Service: 07/22/23 Week #: 1 Treatment #(08-03): 1 PHQ-9 Pre-Treatment (07-31): 18 PHQ-9 Most Recent (07-31): 18 Reviewed: TMS Mapping/Re-mapping completed Verification: I have reviewed the TMS [employer] Retailer Sales Consultant Note and agree with the contents. The patient remains a candidate to continue TMS treatment per protocol. Assessment and Plan (1) Major depressive disorder, recurrent severe without psychotic features: Status: Acute Plan initial mapping completed without difficulty tx tolerated
--- NOTE | 2023-07-27 22:39 | HO.TMSDAILY2 ---
TMS Daily Progress Note Daily TMS Progress Note Date of Service: 07/23/23 Week #: 1 Treatment #(08-03): 2 PHQ-9 Pre-Treatment (07-31): 18 PHQ-9 Most Recent (07-31): 18 Reviewed: TMS Tech Note Reviewed Verification: I have reviewed the TMS Office Communication Professor Note and agree with the contents. The patient remains a candidate to continue TMS treatment per protocol.
--- NOTE | 2023-07-27 22:40 | P.PNPS_ITS ---
TMS Daily Progress Note Daily TMS Progress Note Date of Service: 07/26/23 Week #: 1 Treatment #(08-03): 3 PHQ-9 Pre-Treatment (07-31): 18 PHQ-9 Most Recent (07-31): 18 Reviewed: TMS Tech Note Reviewed Verification: I have reviewed the TMS Water Softener Servicer Note and agree with the contents. The patient remains a candidate to continue TMS treatment per protocol. Assessment and Plan (1) Major depressive disorder, recurrent severe without psychotic features: Status: Acute Plan some side effects noted
--- NOTE | 2023-07-27 22:42 | HO.TMSDAILY2 ---
TMS Daily Progress Note Daily TMS Progress Note Date of Service: 07/27/23 Week #: 1 Treatment #(08-03): 4 PHQ-9 Pre-Treatment (07-31): 18 PHQ-9 Most Recent (07-31): 18 Reviewed: TMS Tech Note Reviewed Verification: I have reviewed the TMS Line Haul Owner Operator Note and agree with the contents. The patient remains a candidate to continue TMS treatment per protocol. Assessment and Plan (1) Major depressive disorder, recurrent severe without psychotic features: Status: Acute Plan cont tx plan
--- NOTE | 2023-08-24 22:57 | HO.TMSDAILY2 ---
TMS Daily Progress Note Daily TMS Progress Note Date of Service: 07/28/23 Week #: 1 Treatment #(08-03): 5 PHQ-9 Pre-Treatment (07-31): 18 PHQ-9 Most Recent (07-31): 18 Reviewed: TMS Tech Note Reviewed Verification: I have reviewed the TMS Motor Racer Note and agree with the contents. The patient remains a candidate to continue TMS treatment per protocol. Assessment and Plan (1) Major depressive disorder, recurrent severe without psychotic features: Status: Acute Plan Tolerating treatment no significant side effects continue plan of care increase MT% adjust tolerated
--- NOTE | 2023-08-24 22:58 | HO.TMSDAILY2 ---
TMS Daily Progress Note Daily TMS Progress Note Date of Service: 07/29/23 Week #: 2 Treatment #(08-03): 6 PHQ-9 Pre-Treatment (07-31): 18 PHQ-9 Most Recent (07-31): 18 Reviewed: TMS Tech Note Reviewed Verification: I have reviewed the TMS Conveyor Line Battery Charger Note and agree with the contents. The patient remains a candidate to continue TMS treatment per protocol. Assessment and Plan (1) Major depressive disorder, recurrent severe without psychotic features: Status: Acute Plan Tolerating treatment no significant side effects continue plan of care increase MT% adjust tolerated. Patient depressed dealing with a lot of medical stressors
--- NOTE | 2023-08-24 23:00 | HO.TMSDAILY2 ---
TMS Daily Progress Note Daily TMS Progress Note Date of Service: 07/30/23 Week #: 2 Treatment #(08-03): 7 PHQ-9 Pre-Treatment (07-31): 18 PHQ-9 Most Recent (07-31): 18 Reviewed: TMS Tech Note Reviewed Verification: I have reviewed the TMS Email Designer Note and agree with the contents. The patient remains a candidate to continue TMS treatment per protocol. Assessment and Plan (1) Major depressive disorder, recurrent severe without psychotic features: Status: Acute Plan Tolerating treatment no significant side effects continue plan of care increase MT% adjust as tolerated no change to this point
--- NOTE | 2023-08-24 23:03 | P.PNPS_ITS ---
TMS Daily Progress Note Daily TMS Progress Note Date of Service: 08/02/23 Week #: 2 Treatment #(08-03): 8 PHQ-9 Pre-Treatment (07-31): 18 PHQ-9 Most Recent (07-31): 10 Reviewed: TMS Tech Note Reviewed Verification: I have reviewed the TMS Service Electrician Note and agree with the contents. The patient remains a candidate to continue TMS treatment per protocol. Assessment and Plan (1) Major depressive disorder, recurrent severe without psychotic features: Status: Acute Plan Question some improvement noted
--- NOTE | 2023-08-24 23:04 | P.PNPS_ITS ---
TMS Daily Progress Note Daily TMS Progress Note Date of Service: 08/03/23 Week #: 2 Treatment #(08-03): 9 PHQ-9 Pre-Treatment (07-31): 18 PHQ-9 Most Recent (07-31): 10 Reviewed: TMS Tech Note Reviewed Verification: I have reviewed the TMS Buffet Manager Note and agree with the contents. The patient remains a candidate to continue TMS treatment per protocol. Assessment and Plan (1) Major depressive disorder, recurrent severe without psychotic features: Status: Acute Plan Question some improvement noted
--- NOTE | 2023-08-24 23:07 | P.PNPS_ITS ---
TMS Daily Progress Note Daily TMS Progress Note Date of Service: 08/04/23 Week #: 2 Treatment #(08-03): 10 PHQ-9 Pre-Treatment (07-31): 18 PHQ-9 Most Recent (07-31): 10 Reviewed: TMS Tech Note Reviewed Verification: I have reviewed the TMS Surveillance Dual Rate Officer Note and agree with the contents. The patient remains a candidate to continue TMS treatment per protocol.
--- NOTE | 2023-08-24 23:08 | HO.TMSDAILY2 ---
TMS Daily Progress Note Daily TMS Progress Note Date of Service: 08/05/23 Week #: 3 Treatment #(08-03): 11 PHQ-9 Pre-Treatment (07-31): 18 PHQ-9 Most Recent (07-31): 10 Reviewed: TMS Tech Note Reviewed Verification: I have reviewed the TMS Costing Manager Note and agree with the contents. The patient remains a candidate to continue TMS treatment per protocol. Assessment and Plan (1) Major depressive disorder, recurrent severe without psychotic features: Status: Acute Plan MT increased continues tolerate treatment
--- NOTE | 2023-08-24 23:09 | HO.TMSDAILY2 ---
TMS Daily Progress Note Daily TMS Progress Note Date of Service: 08/06/23 Week #: 3 Treatment #(08-03): 12 PHQ-9 Pre-Treatment (07-31): 18 PHQ-9 Most Recent (07-31): 10 Reviewed: TMS Tech Note Reviewed Verification: I have reviewed the TMS Photographic Enlarger Operator Note and agree with the contents. The patient remains a candidate to continue TMS treatment per protocol. Assessment and Plan (1) Major depressive disorder, recurrent severe without psychotic features: Status: Acute Plan MT increased continues tolerate treatment improvement noted
--- NOTE | 2023-08-24 23:10 | HO.TMSDAILY2 ---
TMS Daily Progress Note Daily TMS Progress Note Date of Service: 08/09/23 Week #: 3 Treatment #(08-03): 13 PHQ-9 Pre-Treatment (07-31): 18 PHQ-9 Most Recent (07-31): 10 Reviewed: TMS Tech Note Reviewed Verification: I have reviewed the TMS Sql Report Analyst Note and agree with the contents. The patient remains a candidate to continue TMS treatment per protocol. Assessment and Plan (1) Major depressive disorder, recurrent severe without psychotic features: Status: Acute Plan Recent reaction to COVID vaccine tolerated treatment today without additional difficulty
--- NOTE | 2023-08-24 23:12 | HO.TMSDAILY2 ---
TMS Daily Progress Note Daily TMS Progress Note Date of Service: 08/10/23 Week #: 3 Treatment #(08-03): 14 PHQ-9 Pre-Treatment (07-31): 18 PHQ-9 Most Recent (07-31): 7 Reviewed: TMS Tech Note Reviewed Verification: I have reviewed the TMS Supervisor Food Checkers And Cashiers Note and agree with the contents. The patient remains a candidate to continue TMS treatment per protocol. Assessment and Plan (1) Major depressive disorder, recurrent severe without psychotic features: Status: Acute Plan Significant improvement noted patient more aware
--- NOTE | 2023-08-24 23:13 | P.PNPS_ITS ---
TMS Daily Progress Note Daily TMS Progress Note Date of Service: 08/11/23 Week #: 3 Treatment #(08-03): 15 PHQ-9 Pre-Treatment (07-31): 18 PHQ-9 Most Recent (07-31): 7 Reviewed: TMS Tech Note Reviewed Verification: I have reviewed the TMS Business Intelligence Administrator Note and agree with the contents. The patient remains a candidate to continue TMS treatment per protocol.
--- NOTE | 2023-08-24 23:15 | P.PNPS_ITS ---
TMS Daily Progress Note Daily TMS Progress Note Date of Service: 08/12/23 Week #: 4 Treatment #(08-03): 16 PHQ-9 Pre-Treatment (07-31): 18 PHQ-9 Most Recent (07-31): 7 Reviewed: TMS Tech Note Reviewed Verification: I have reviewed the TMS Special Education Educational Assistant Note and agree with the contents. The patient remains a candidate to continue TMS treatment per protocol. Assessment and Plan (1) Major depressive disorder, recurrent severe without psychotic features: Status: Acute Plan Patient seems to be responding to TMS has been having some difficulties with her hand silvering supervisor feeling not supported
--- NOTE | 2023-08-31 14:59 | P.PNPS_ITS ---
TMS Daily Progress Note Daily TMS Progress Note Date of Service: 08/31/23 Week #: 4 Treatment #(08-03): 17 PHQ-9 Pre-Treatment (-): 18 PHQ-9 Most Recent (07-31): 7 BENIGNO-7 Pre-Treatment (0-): 15 BENIGNO-7 Most Recent (0-): 5 Reviewed: TMS Tech Note Reviewed Verification: I have reviewed the TMS Lunch Truck Driver Note and agree with the contents. The patient remains a candidate to continue TMS treatment per protocol. Assessment and Plan (1) Major depressive disorder, recurrent severe without psychotic features: Status: Acute (2) Post traumatic stress disorder (PTSD): Status: Acute Plan Patient feeling somewhat overwhelmed with situational factors at work continues tolerate TMS well
--- NOTE | 2023-08-31 15:02 | P.PNPS_ITS ---
TMS Daily Progress Note Daily TMS Progress Note Date of Service: 08/31/23 Week #: 4 Treatment #(08-03): 18 PHQ-9 Pre-Treatment (-): 18 PHQ-9 Most Recent (07-31): 7 BENIGNO-7 Pre-Treatment (0-21): 15 BENIGNO-7 Most Recent (0-21): 5 Reviewed: TMS Tech Note Reviewed Verification: I have reviewed the TMS Allergy And Immunology Chief Note and agree with the contents. The patient remains a candidate to continue TMS treatment per protocol. Assessment and Plan (1) Major depressive disorder, recurrent severe without psychotic features: Status: Acute Plan Struggling with some degree of work stress
--- NOTE | 2023-08-31 15:03 | P.PNPS_ITS ---
TMS Daily Progress Note Daily TMS Progress Note Date of Service: 08/18/23 Week #: 4 Treatment #(08-03): 19 PHQ-9 Pre-Treatment (-): 18 PHQ-9 Most Recent (07-31): 8 BENIGNO-7 Pre-Treatment (0-21): 15 BENIGNO-7 Most Recent (0-21): 5 Reviewed: TMS Tech Note Reviewed Verification: I have reviewed the TMS Set Up Mechanic Crown Assembly Machine Note and agree with the contents. The patient remains a candidate to continue TMS treatment per protocol. Assessment and Plan (1) Major depressive disorder, recurrent severe without psychotic features: Status: Acute Plan Patient seems to be doing better no complaints of side effects will be having outpatient surgery will be out for a few days
--- NOTE | 2023-08-31 15:11 | HO.TMSDAILY2 ---
TMS Daily Progress Note Daily TMS Progress Note Date of Service: 08/19/23 Week #: 4 Treatment #(-): 20 PHQ-9 Pre-Treatment (-): 18 PHQ-9 Most Recent (07-31): 8 BENIGNO-7 Pre-Treatment (0-21): 15 BENIGNO-7 Most Recent (0-21): 5 Reviewed: TMS Tech Note Reviewed Verification: I have reviewed the TMS Remotely Operated Vehicle Note and agree with the contents. The patient remains a candidate to continue TMS treatment per protocol. Assessment and Plan (1) Post traumatic stress disorder (PTSD): Status: Acute (2) Major depressive disorder, recurrent severe without psychotic features: Status: Acute Plan Things seem to be going better with her adjustment supervisor treatment continues to be tolerated appears helpful
--- NOTE | 2023-08-31 15:13 | HO.TMSDAILY2 ---
TMS Daily Progress Note Daily TMS Progress Note Date of Service: 08/31/23 Week #: 5 Treatment #(08-03): 21 a tenaculum here I am on on the iPad in on supposed to be connecting 2 agents right he says unable to join I use it son experienced often for telehealth appointments connected flexes before not it less me go to [facility] but PHQ-9 Pre-Treatment (-): 18 PHQ-9 Most Recent (07-31): 7 BENIGNO-7 Pre-Treatment (0-21): 15 BENIGNO-7 Most Recent (0-21): 5 Reviewed: TMS Tech Note Reviewed Verification: I have reviewed the TMS Foreclosure Clerk Note and agree with the contents. The patient remains a candidate to continue TMS treatment per protocol. Assessment and Plan (1) Major depressive disorder, recurrent severe without psychotic features: Status: Acute Plan Half due Ms. Few days due to work/family issues overall continues to do better
--- NOTE | 2023-09-03 22:33 | HO.TMSDAILY2 ---
TMS Daily Progress Note Daily TMS Progress Note Date of Service: 09/01/23 Week #: 5 Treatment #(-): 22 PHQ-9 Pre-Treatment (-): 18 PHQ-9 Most Recent (07-31): 7 BENIGNO-7 Pre-Treatment (0-21): 15 BENIGNO-7 Most Recent (0-21): 5 Reviewed: TMS Tech Note Reviewed Verification: I have reviewed the TMS Drilling Assistant Note and agree with the contents. The patient remains a candidate to continue TMS treatment per protocol. Assessment and Plan (1) Major depressive disorder, recurrent severe without psychotic features: Status: Acute Plan Will be having minor surgery tomorrow some appropriate anxiety regarding this
--- NOTE | 2023-09-09 11:28 | HO.TMSDAILY2 ---
TMS Daily Progress Note Daily TMS Progress Note Date of Service: 09/03/23 Week #: 5 Treatment #(-): 23 PHQ-9 Pre-Treatment (-): 18 PHQ-9 Most Recent (07-31): 7 BENIGNO-7 Pre-Treatment (0-21): 15 BENIGNO-7 Most Recent (0-21): 5 Reviewed: TMS Tech Note Reviewed Verification: I have reviewed the TMS Accounts Receivable Accountant Note and agree with the contents. The patient remains a candidate to continue TMS treatment per protocol. Assessment and Plan (1) Major depressive disorder, recurrent severe without psychotic features: Status: Acute Plan Patient status post minor surgery when well
--- NOTE | 2023-09-09 11:37 | P.PNPS_ITS ---
TMS Daily Progress Note Daily TMS Progress Note Date of Service: 09/06/23 Week #: 5 Treatment #(-): 24 PHQ-9 Pre-Treatment (-): 18 PHQ-9 Most Recent (07-31): 7 BENIGNO-7 Pre-Treatment (0-21): 15 BENIGNO-7 Most Recent (0-21): 5 Reviewed: TMS Tech Note Reviewed Verification: I have reviewed the TMS Tool Rental Technician Note and agree with the contents. The patient remains a candidate to continue TMS treatment per protocol. Assessment and Plan (1) Major depressive disorder, recurrent severe without psychotic features: Status: Acute Plan Patient continues to do generally well with treatment however has family emergency will need to take a few days off we did discuss with the patient time off might interfere with treatment and to try to take as limit time as possible
== END 2023-09-30 17:07 | disposition home or self-care (01) ==
LOC: HO.PTMS 16:30
PROVIDERS: Visit Provider Psychiatry & Neurology Psychiatry
DX: F33.2 Major depressive disorder, recurrent severe without psychotic features (principal); F43.10 Post-traumatic stress disorder, unspecified
CPT/HCPCS: 90867; 90868; 99214

== ENCOUNTER 2023-11-28 04:12 | Emergency (ER) | payer OTHER, MEDICAID, SELFPAY ==
[2023-11-28 04:19] VITALS: BP 110/72; PULSE 89; RESP 14; TEMP 36.3; O2SAT 100; BMI 24.1
== END 2023-11-28 05:59 | disposition left against medical advice (07) ==
PROVIDERS: Emergency Provider Emergency Medicine
DX: L02.214 Cutaneous abscess of groin (principal); Z53.21 Procedure and treatment not carried out due to patient leaving prior to being seen by health care provider
CPT/HCPCS: 99281

== ENCOUNTER 2024-03-03 07:33 | Emergency (ER) | payer OTHER, MEDICAID, SELFPAY ==
[2024-03-03 07:41] VITALS: BMI 21.4
[2024-03-03 07:46] VITALS: BP 104/54; PULSE 77; RESP 18; TEMP 36.6; O2SAT 99
--- NOTE | 2024-03-03 07:46 | ED.GENADULT ---
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 She states that she got diagnoses with norovirus as outpatient. She denies any fever and chills. Weight loss is over 3 months. Onset (ago): month(s) Radiation: non-radiation Severity: mild Quality: burning Pain Consistency: constant Relieving factors: none Exacerbating factors: none Associated symptoms: denies other symptoms Related Data Home Medications ?Medication ?Instructions ?Recorded ?Confirmed clonazepam 2 mg tablet 2 mg PO BEDTIME 01/12/23 01/12/23 hydrocodone 7.5 mg-acetaminophen 1 tab PO QD-TID severe pain 01/12/23 01/12/23 325 mg tablet lorazepam 1 mg tablet 1 - 2 mg PO BEDTIME PRN insomnia 01/12/23 01/12/23 mycophenolate mofetil 500 mg tablet 1,000 mg PO BID 01/12/23 01/12/23 pantoprazole 40 mg tablet,delayed 40 mg PO BID 01/12/23 01/12/23 release progesterone micronized 100 mg 100 mg PO BEDTIME 01/12/23 01/12/23 capsule sertraline 100 mg tablet 100 mg PO BEDTIME 01/12/23 01/12/23 pramipexole 0.125 mg tablet 0.125 mg PO BEDTIME 01/19/23 01/19/23 Previous Rx's ?Medication ?Instructions ?Recorded lurasidone 20 mg tablet 20 mg PO DAILY #30 tabs 01/13/23 Allergies Allergy/AdvReac Type Severity Reaction Status Date / Time cyclosporine [CYCLOSPORINE] Allergy Severe kidney Verified 03/03/24 07:43 issues NSAIDS (Non-Steroidal Allergy Severe CAUTION Verified 03/03/24 07:43 Anti-Inflamma FOR KIDNEY [NSAIDS (NON-STEROIDAL TRANSPLANT ANTI-INFLAMMA] trimethoprim [From BACTRIM] Allergy Severe GUILLERMO Verified 03/03/24 07:43 FLARE UP simvastatin [SIMVASTATIN] Allergy Intermediate itchy Verified 03/03/24 07:43 oxycodone Allergy Unknown Unknown Verified 03/03/24 07:43 tapentadol [From NUCYNTA] AdvReac Severe URINARY Verified 03/03/24 07:43 RETENTION doxycycline [DOXYCYCLINE] AdvReac Mild NAUSEA Verified 03/03/24 07:43 BACTRIM Allergy Unknown Unknown Uncoded 03/03/24 07:43 compazine Allergy Unknown Unknown Uncoded 03/03/24 07:43 Dicyclomine HCl Allergy Unknown Unknown Uncoded 03/03/24 07:43 PROGRAF Allergy Unknown Unknown Uncoded 03/03/24 07:43 DILAUDID AdvReac Unknown Unknown Uncoded 03/03/24 07:43 Review of Systems Constitutional: Constitutional: Reports no additional constitutional complaints ENT: Reports system reviewed and no additional complaints, except as documented Cardiovascular: Cardiovascular: Reports no additional cardiovascular complaints Gastrointestinal: Gastrointestinal: Reports nausea and Reports vomiting PMFSH Past Medical History [facility] Narrative: History of kidney transplant history of lupus nephritis Medical History Migraines ELIM IRA (hard of hearing) Rheumatoid arthritis Gastritis Anxiety Back pain Arthritis Lupus Surgical History H/O wrist surgery H/O knee surgery Hx of cholecystectomy Transplant Kidney transplant recipient Social History Social History Household Members: Family Household Members Other:: Kelly currently resides with her biological mother. Alcohol intake: never Patient Tobacco Use Status: Never used Tobacco Substance Use Type: Marijuana Advance Directives: No Advance Directives Information Provided: No Physical Exam ED Vital Signs: Vital Signs - 24 hr 03/03/24 07:46 03/03/24 09:27 Temperature 98 F 98 F Pulse Rate 77 77 Respiratory Rate 18 18 Blood Pressure 104/54 L 104/54 L Pulse Oximetry 99 99 Oxygen Delivery Method Room Air Room Air BMI result Body Mass Index 21.4 Patient looks well she is not toxic-appearing she has stable vital sign Const General: cooperative, healthy appearing, comfortable, no acute distress, well developed, alert and awake Nutritional Appearance: well nourished Orientation/consciousness: patient oriented x3 Limitations: no limitations HENMT Head: Yes normal to inspection Face and sinus: Yes normal facial exam Mouth: Normal oral and palatal mucosa present Neck Neck: Yes normal visual inspection and Yes full ROM Chest Chest palpation & inspection: normal inspection of the chest Resp Effort & Inspection: normal respiratory effort Auscultation: clear to auscultation bilaterally Cardio Jugular venous distension: no JVD Rate: regular rate Rhythm: regular rhythm GI Inspection: Yes normal to inspection Palpation (GI): Soft to palpation Skin General skin exam: no rashes or lesions noted and elasticity normal Lesions: no lesions Rashes: no rashes Neuro General: patient oriented x3 Cranial nerves: Yes CN's II-XII intact bilaterally Cognition (Neuro): normal cognition Course Reevaluation(s) Reevaluation #1: On re-examination she is feeling better vital signs are stable creatinine is normal I think at this point the patient can be safely discharged home she will follow-up with the primary care physician Time: 09:20 Medications Administered Discontinued Medications Generic Name Dose Route Start Last Admin Trade Name Freq PRN Reason Stop Dose Admin Sodium Chloride 1,000 mls @ 999 mls/hr 03/03/24 08:00 03/03/24 08:58 Ns IVCONT 03/03/24 09:00 Infused .Q1H1M BRENDA Infusion Medical Decision Making Medical Decision Making [facility] Narrative: Patient presented with a chief complaint of nausea vomiting diarrhea, will get labs administer IV fluid Differential Diagnosis Differential Diagnoses: The differential diagnosis associated with the presentation includes Viral syndrome/electrolyte abnormality/kidney failure Admission/Observation Consideration of admission/observation: Escalation of care including admission/observation considered Lab Data [facility] Lab Attestation statement: I reviewed the patient's lab results. 03/03/24 07:52 03/03/24 07:52 Labs: Lab Results 03/03/24 Range/Units 07:52 WBC 7.9 (4.8-10.8) X10*3/uL RBC 4.16 L (4.20-5.50) X10*6/uL Hgb 11.7 L (12.0-16.0) g/dl Hct 37.5 (37.0-47.0) % MCV 90.1 (80.0-98.0) fL MCH 28.1 (27.0-33.0) pg MCHC 31.2 (31.0-35.0) g/dl RDW 13.2 (11.0-16.0) % Plt Count 388 (160-400) X10*3/uL MPV 9.8 (9.4-12.3) fL Immature Gran % (Auto) 0.4 (0.0-0.4) % Neut % (Auto) 64.8 (45-73) % Lymph % (Auto) 23.4 (20-40) % [place] % (Auto) 9.7 (2-11) % Eos % (Auto) 1.3 (0-4) % Baso % (Auto) 0.4 (0-2) % Lymph # (Auto) 1.8 (1.2-4.9) X10*3/uL [place] # (Auto) 0.8 (0.1-1.2) X10*3/uL Eos # (Auto) 0.1 (0.0-0.4) X10*3/uL Baso # (Auto) 0.0 (0.0-0.2) X10*3/uL Abs Immat Gran (auto) 0.03 (0.00-0.03) X10*3/uL Absolute Neuts (auto) 5.1 (2.0-8.3) x10*3/uL Absolute Nucleated RBC 0.000 (0.0-0.012) X10*3/uL Nucleated RBC % (auto) 0.0 (0.0-0.2) /100WBC Sodium 143 (135-145) mmol/L Potassium 4.1 (3.3-5.1) mmol/L Chloride 111 H (96-108) mmol/L Carbon Dioxide 24 (22-29) mmol/L Anion Gap 12 (12-20) BUN 22 H (9-16) mg/dL Creatinine 1.35 (0.5-1.4) mg/dL Estim Creat Clear Calc 45.3 Estimated GFR 43 Random Glucose 96 (60-115) mg/dL Calcium 10.2 D (8.4-10.2) mg/dL Total Bilirubin 0.4 (0.0-1.0) mg/dL AST 51 H (5-31) U/L ALT 150 H (0-31) U/L Alkaline Phosphatase 216 H (39-117) U/L Total Protein 8.1 H (6.5-8.0) g/dL Albumin 4.4 (3.5-5.0) g/dL Beta HCG, Quant < 2 mIU/mL Chronic Conditions Patient?s care impacted by: Other History of kidney transplant Discharge Plan Discharge Clinical Impression: Gastroenteritis Patient Disposition: Home, Self-Care Instructions: Gastroenteritis (DC) Additional Instructions: Follow-up with your primary care physician drink plenty of fluids return if you worse Prescriptions: No Action sertraline 100 mg tablet 100 mg PO BEDTIME clonazepam 2 mg tablet 2 mg PO BEDTIME lorazepam 1 mg tablet 1 - 2 mg PO BEDTIME PRN (Reason: insomnia) hydrocodone-acetaminophen 7.5-325 mg tablet 1 tab PO QD-TID pantoprazole 40 mg tablet,delayed release (DR/EC) 40 mg PO BID progesterone micronized 100 mg capsule 100 mg PO BEDTIME mycophenolate mofetil 500 mg Tablet 1,000 mg PO BID Patient Comments: Pharmacy stated 3 tabs 1500 mg BID however patient reports she takes 2 tabs 1000 mg BID. Her doctor is aware however the prescription has not changed per patient. lurasidone 20 mg tablet 20 mg PO DAILY Qty: 30 0RF Rx Instructions: must administer with food (at least 350 calories) pramipexole 0.125 mg Tablet 0.125 mg PO BEDTIME Referrals: Demetrius Roberto MD [Primary Care Provider] - 3 days Interventions: ED Discharge Assessment Last Done: 03/03/24 09:27 Discharge Date/Time: 03/03/24 09:28 Print Language: Stateless
[2024-03-03] MEDS: 0.9 % Sodium Chloride 1,000 ML 999 ML IVCONT (07:53)
[2024-03-03 07:57] LABS: MANUAL DIFF FLAG NO
[2024-03-03 07:59] LABS: Basophils Percent Auto 0.4 % (0-2); Eosinophils Absolute Auto 0.1 X10*3/uL (0.0-0.4); Eosinophils Percent Auto 1.3 % (0-4); Hematocrit 37.5 % (37.0-47.0); Hemoglobin 11.7 g/dl (12.0-16.0); Imm Gran Abs Auto 0.03 X10*3/uL (0.00-0.03); Imm Gran Pct Auto 0.4 % (0.0-0.4); Lymphocytes Absolute Auto 1.8 X10*3/uL (1.2-4.9); Lymphocytes Percent Auto 23.4 % (20-40); Mean Corpuscular HGB Conc 31.2 g/dl (31.0-35.0); Mean Corpuscular Hemoglobin 28.1 pg (27.0-33.0); Mean Corpuscular Volume 90.1 fL (80.0-98.0); Mean Platelet Volume 9.8 fL (9.4-12.3); Monocytes Absolute Auto 0.8 X10*3/uL (0.1-1.2); Monocytes Percent Auto 9.7 % (2-11); Neutrophils Absolute Auto 5.1 x10*3/uL (2.0-8.3); Neutrophils Percent Auto 64.8 % (45-73); Platelet Count 388 X10*3/uL (160-400); Red Blood Count 4.16 X10*6/uL (4.20-5.50); Red Cell Distribution Width 13.2 % (11.0-16.0); White Blood Count 7.9 X10*3/uL (4.8-10.8)
[2024-03-03 08:20] LABS: Anion Gap 12 (12-20); Blood Urea Nitrogen 22 mg/dL (9-16); Carbon Dioxide 24 mmol/L (22-29); Chloride 111 mmol/L (96-108); Potassium 4.1 mmol/L (3.3-5.1); Sodium 143 mmol/L (135-145)
[2024-03-03 08:21] LABS: Alanine Aminotransferase 150 U/L (0-31); Albumin Level 4.4 g/dL (3.5-5.0); Alkaline Phosphatase 216 U/L (39-117); Aspartate Amino Transferase 51 U/L (5-31); Bilirubin Total 0.4 mg/dL (0.0-1.0); Calcium 10.2 mg/dL (8.4-10.2); Creatinine Clr Calc Pharmacy 45.3; Estimated Glomerular Filt Rate 43; Glucose Random 96 mg/dL (60-115); Total Protein 8.1 g/dL (6.5-8.0)
[2024-03-03 08:34] LABS: HCG Quantitative < 2 mIU/mL
[2024-03-03 09:27] VITALS: BP 104/54; PULSE 77; RESP 18; TEMP 36.6; O2SAT 99
== END 2024-03-03 09:28 | disposition home or self-care (01) ==
PROVIDERS: Emergency Provider Emergency Medicine; PCP Internal Medicine
DX: K52.9 Noninfective gastroenteritis and colitis, unspecified (principal)
CPT/HCPCS: 36415; 80053; 84702; 85025; 96360; 99284

== ENCOUNTER 2024-08-03 09:41 | Emergency (ER) | payer OTHER, MEDICAID, SELFPAY ==
[2024-08-03 09:49] VITALS: BP 115/61; PULSE 78; RESP 18; TEMP 36.6; O2SAT 99; BMI 22.3
--- NOTE | 2024-08-03 11:46 | ED.SKABFB ---
HPI - Skin/Abscess/Foreign Bdy General Chief complaint: Skin/Abscess/Foreign Body Stated complaint: abscess on groin area kidney transplant Time Seen by Provider: 08/03/24 11:42 Source: patient, RN notes reviewed and old records reviewed Mode of arrival: ambulatory Limitations: no limitations History of Present Illness ED Provider: SEPIDEH MENA PA-C HPI narrative: 43 year old female with pmhx significant for lupus, RA, gastritis, anxiety, MDD, hidradenitis suppurativa, s/p right renal transplant (2019, on cellcept) presents to the ED today for evaluation of abscess to her right groin x3-4 days. Reports appointment with ID 3 months ago for her hidradenitis suppurativa- was placed on a 3 month course of doxycycline PO and topical clindamycin with improvement. She completed her oral antibiotics approximately 9 days ago. A few days after completion, she noticed a red bump along her right bikini line which has been increasing in size. Admits the area is painful, primarily while seated. No drainage. She called her OBGYN who advised her to continue applying topical clindamycin which she has been doing without improvement. She has a follow up appointment with I&D on 08/14/24. Denies fever, chills, dysuria, vaginal discharge, other vaginal leasions. No concern for STIs. Related Data Home Medications ?Medication ?Instructions ?Recorded ?Confirmed clonazepam 2 mg tablet 2 mg PO BEDTIME 01/12/23 01/12/23 hydrocodone 7.5 mg-acetaminophen 1 tab PO QD-TID severe pain 01/12/23 01/12/23 325 mg tablet lorazepam 1 mg tablet 1 - 2 mg PO BEDTIME PRN insomnia 01/12/23 01/12/23 mycophenolate mofetil 500 mg tablet 1,000 mg PO BID 01/12/23 01/12/23 pantoprazole 40 mg tablet,delayed 40 mg PO BID 01/12/23 01/12/23 release progesterone micronized 100 mg 100 mg PO BEDTIME 01/12/23 01/12/23 capsule sertraline 100 mg tablet 100 mg PO BEDTIME 01/12/23 01/12/23 pramipexole 0.125 mg tablet 0.125 mg PO BEDTIME 01/19/23 01/19/23 Previous Rx's ?Medication ?Instructions ?Recorded lurasidone 20 mg tablet 20 mg PO DAILY #30 tabs 01/13/23 clindamycin HCl 300 mg capsule 300 mg PO Q8H 7 days #21 caps 08/03/24 levofloxacin 750 mg tablet 750 mg PO DAILY 7 days #7 tabs 08/03/24 Allergies Allergy/AdvReac Type Severity Reaction Status Date / Time cyclosporine [CYCLOSPORINE] Allergy Severe kidney Verified 08/03/24 09:52 issues NSAIDS (Non-Steroidal Allergy Severe CAUTION Verified 08/03/24 09:52 Anti-Inflamma FOR KIDNEY [NSAIDS (NON-STEROIDAL TRANSPLANT ANTI-INFLAMMA] trimethoprim [From BACTRIM] Allergy Severe GUILLERMO Verified 08/03/24 09:52 FLARE UP simvastatin [SIMVASTATIN] Allergy Intermediate itchy Verified 08/03/24 09:52 oxycodone Allergy Unknown Unknown Verified 08/03/24 09:52 tapentadol [From NUCYNTA] AdvReac Severe URINARY Verified 08/03/24 09:52 RETENTION doxycycline [DOXYCYCLINE] AdvReac Mild NAUSEA Verified 08/03/24 09:52 BACTRIM Allergy Unknown Unknown Uncoded 03/03/24 07:43 compazine Allergy Unknown Unknown Uncoded 03/03/24 07:43 Dicyclomine HCl Allergy Unknown Unknown Uncoded 03/03/24 07:43 PROGRAF Allergy Unknown Unknown Uncoded 03/03/24 07:43 DILAUDID AdvReac Unknown Unknown Uncoded 03/03/24 07:43 Review of Systems Review of Systems: Constitutional: No fever, chills, fatigue, night sweats, weight changes ENT/Mouth: No ear pain, hearing loss, nasal congestion, sinus pain, rhinorrhea, sore throat Eyes: No eye pain, swelling, redness, vision changes, discharge Cardio: No chest pain, palpitations, FULLER, orthopnea, peripheral edema Pulm: No SOB, cough, sputum, wheezing, dyspnea, hemoptysis GI: No nausea, vomiting, hematemesis, abdominal pain, diarrhea, constipation, hematochezia, melena : No irregular bleeding, dysuria, frequency, urgency, hesitancy, hematuria, flank pain, urinary flow changes, urinary incontinence or retention MSK: No back pain, neck pain, joint pain, myalgias Skin: No lesions, rashes, +right groin abscess Neuro: No weakness, numbness, paresthesias, LOC, dizziness, headache Psych: No anxiety/panic, depression, SI/HI, AH/VH All other systems reviewed and are negative. [facility] Past Medical History Attestation statement: The following information was validated with the patient. Source: old records reviewed and nursing notes reviewed Medical History Migraines [place] (hard of hearing) Rheumatoid arthritis Gastritis Anxiety Back pain Arthritis Lupus Surgical History H/O wrist surgery H/O knee surgery Hx of cholecystectomy Transplant Kidney transplant recipient Social History Social History Household Members: Family Household Members Other:: Kelly currently resides with her biological mother. Alcohol intake: never Patient Tobacco Use Status: Never used Tobacco Smoked in Last 30 Days: No Use of substances other than those prescribed or required for medical reasons: No Substance Use Type: Marijuana Advance Directives: No Advance Directives Information Provided: No Patient : No Physical Exam Vital Signs: Vital Signs: Last Vital Signs Temp 97.9 F 08/03/24 13:36 Pulse 57 08/03/24 13:36 Resp 18 08/03/24 13:36 BP 110/61 08/03/24 13:36 Pulse Ox 98 08/03/24 13:36 O2 Del Method Room Air 08/03/24 13:36 BMI result Body Mass Index 22.3 Vital signs stable, afebrile General: Well appearing, in no acute distress. Skin: Warm, dry, intact. No rashes or lesions. Head: Normocephalic, atraumatic. EENT: Hearing is intact b/l. Conjunctiva clear. PERRLA. EOM intact. Moist mucous membranes.? Cardiac: Chest wall symmetric. RRR Lungs: Normal respiratory effort without accessory muscle use. CTA bilaterally Abdomen: Soft, non-tender, non-distended. No rebound tenderness or guarding. Positive BS x4. : Frame Bander offered, patient declined. please see portion for findings. Ext: Upper and lower extremities atraumatic, without tenderness, deformity, swelling or erythema. Neuro: AOx3. Normal speech. Ambulating with steady gait. : Female genitals images: 1. + small, 1cm x 1cm area of erythema and induration noted to right posterior groin fold. no central pointing or palpable fluctuance. ttp. no drainage. no streaking. Course Course Course Narrative: 1313 -- I reached out to on-call ID physician, Dr. Rock. Given patient recently completed a 3 month course of doxy and is on an immunosuppressant, she is recommending a 7 day course of both PO clindamycin and levaquin. She advises to discontinue topical clindamycin. I feel this is reasonable. Her exam shows induration without palpable fluctuance and I do not feel as though she would benefit from I&D today. She has a follow up appointment with her ID doctor at [facility] in 10 days. I advised to keep that appointment for follow up. Patient has remained stable throughout ED visit today. Discussed worrisome signs and symptoms and when to return to the ED. All questions answered at this time. Patient is agreeable with disposition and stable for discharge. Medications Administered Discontinued Medications Generic Name Dose Route Start Last Admin Trade Name Jaidenq PRN Reason Stop Dose Admin Acetaminophen 975 mg 08/03/24 12:19 08/03/24 12:24 Acetaminophen 325 Mg Tablet PO 08/03/24 12:20 975 mg ONCE ONE Administration Clindamycin HCl 300 mg 08/03/24 12:38 08/03/24 12:58 Clindamycin Hcl 300 Mg Capsule PO 08/03/24 12:39 300 mg ONCE ONE Administration Levofloxacin 750 mg 08/03/24 12:38 08/03/24 12:58 Levofloxacin 750 Mg Tablet PO 08/03/24 12:39 750 mg ONCE ONE Administration Medical Decision Making Medical Decision Making [facility] Narrative: 43 year old female with pmhx significant for lupus, RA, gastritis, anxiety, MDD, hidradenitis suppurativa, s/p right renal transplant (2019, on cellcept) presents to the ED today for evaluation of abscess to her right groin x3-4 days. her vitals are stable. she is afebrile. she is nontoxic appearing and in NAD. On sensitive exam, there is a small, 1cm x 1cm area of erythema and induration noted to right posterior groin fold. no central pointing or palpable fluctuance. ttp. no drainage. no streaking. Differential diagnosis includes cellulitis, skin abscess, Bartholin's cyst, Bartholin's abscess Plan for pain control and will reach out to ID for recommendation. Differential Diagnosis Differential Diagnoses: The differential diagnosis associated with the presentation includes as above. Admission/Observation not indicated. Consult Healthcare Provider Management of the patient was discussed with: Health Data Administrator WILI - Dr. Rock External Record Review External record reviewed: Inpatient record Prescription Management I considered prescription management with: Pain Medication and Antibiotic (clindamycin, levaquin) Chronic Conditions Patient?s care impacted by: Other (Hidradenitis suppurativa, renal transplant patient) Social Determinants Patient?s care significantly limited by Social Determinants of Health including: Other Social Determinant of Health Critical Care Time Critical Care Time Critical Care Time: No Discharge Plan Discharge Clinical Impression: Abscess of groin, right Patient Disposition: Home, Self-Care Instructions: Abscess (ED) Additional Instructions: You were evaluated in the ED today for an abscess to your right groin, consistent with an acute flare of your hidradenitis suppurativa. Please keep the area surrounding the abscess clean and dry. Please discontinue your topical clindamycin. You will be given a new prescription for antibiotics (oral clindamycin and oral levaquin). Please take the antibiotics as directed for the full course of the medication. If the abscess progresses you may have to have the abscess incised and drained. I recommend you take Tylenol 650mg every 6 hours as needed for pain. Follow up with I&D specialist as planned on 08/14/24. Follow up with PCP as needed. Return to the Emergency Department if you experience fevers greater than 100.4F, increase in area of redness or swelling, increasing amount of discharge from the area, increased tenderness around the area, or any other concerning symptoms. Prescriptions: New clindamycin HCl 300 mg capsule 300 mg PO Q8H 7 Days Qty: 21 0RF levofloxacin 750 mg tablet 750 mg PO DAILY 7 Days Qty: 7 0RF No Action sertraline 100 mg tablet 100 mg PO BEDTIME clonazepam 2 mg tablet 2 mg PO BEDTIME lorazepam 1 mg tablet 1 - 2 mg PO BEDTIME PRN (Reason: insomnia) hydrocodone-acetaminophen 7.5-325 mg tablet 1 tab PO QD-TID pantoprazole 40 mg tablet,delayed release (DR/EC) 40 mg PO BID progesterone micronized 100 mg capsule 100 mg PO BEDTIME mycophenolate mofetil 500 mg Tablet 1,000 mg PO BID Patient Comments: Pharmacy stated 3 tabs 1500 mg BID however patient reports she takes 2 tabs 1000 mg BID. Her doctor is aware however the prescription has not changed per patient. lurasidone 20 mg tablet 20 mg PO DAILY Qty: 30 0RF Rx Instructions: must administer with food (at least 350 calories) pramipexole 0.125 mg Tablet 0.125 mg PO BEDTIME Referrals: Demetrius Roberto MD [Primary Care Provider] - Stand Alone Forms: Work/School Release Interventions: ED Discharge Assessment Last Done: 08/03/24 13:36 Discharge Date/Time: 08/03/24 13:36 Print Language: Yakut
[2024-08-03] MEDS: Acetaminophen 325 MG TABLET 975 MG PO (12:24)
[2024-08-03 12:33] VITALS: BP 110/61; PULSE 57; RESP 18; TEMP 36.6; O2SAT 99
[2024-08-03] MEDS: Clindamycin HCL 300 MG CAPSULE PO (12:58)
[2024-08-03] MEDS: levoFLOXacin 750 MG TABLET PO (12:58)
[2024-08-03 13:36] VITALS: BP 110/61; PULSE 57; RESP 18; TEMP 36.6; O2SAT 98
--- OUTSIDE RECORDS SUMMARY | 2024-08-03 15:44 | XMS_ITS | Encounter Summary ---
Author Organization [facility], Address [address] [place] [address] Phone Care Team Providers Care Environmental Marketer Name Role Phone Sri Sahni DO Primary Care Pro vider Encounter Details Date Type Department Care Team (Late st Contact Info) Description 01/21/2023 Documentation Only [facility], [address] [phone] Jani Dent PA [address] [place] [phone] Social History Tobacco Use Types Packs/Day Years Used Date Smoking Tobacco: Never Alcohol Use Standard Drinks/Week Comments Yes 0 (1 standard drink = 0.6 oz pure alcohol) Alcoholic Drinks/day: Occasional social drink Comments Unknown Sex and Gender Information Value Date Recorded Sex Assigned at Not on file Legal Sex Female 4:34 PM EST Gender Identity Not on file Sexual Orientation Not on file documented as of this encounter Plan of Treatment Upcoming Encounters Date Type Department Care Team (Late st Contact Info) Description 08/17/2024 2:30 PM EST Office Visit [facility] [address] [place] [phone] Jackie Davis FNP-C [address] [place] [address] documented as of this encounter Visit Diagnoses Not on filedocumented in this encounter Care Teams Environmental Marketer Relationship Specialty Start Date End Date Sri Sahni DO PCP - General 05/09/19 documented as of this encounter
--- OUTSIDE RECORDS SUMMARY | 2024-08-03 15:44 | XMS_ITS | Encounter Summary ---
Author Organization [facility], Address [address] [place] [address] Phone Care Team Providers Care Clinical Dental Technician Name Role Phone Sri Sahni DO Primary Care Pro vider Encounter Details Date Type Department Care Team (Late st Contact Info) Description 05/10/2024 Documentation Only [facility], [address] [place] [phone] Carlee Arndt [place] [address] [place] [phone] Social History Tobacco Use Types Packs/Day Years Used Date Smoking Tobacco: Never Alcohol Use Standard Drinks/Week Comments Not Currently 0 (1 standard drink = 0.6 oz [...] Visit [facility] [address] [place] [phone] Jackie Davis FNP-C [address] [place] [address] documented as of this encounter Visit Diagnoses Not on filedocumented in this encounter Care Teams Clinical Dental Technician Relationship Specialty Start Date End Date Sri Sahni DO PCP - General 05/09/19 documented as of this encounter
--- OUTSIDE RECORDS SUMMARY | 2024-08-03 15:44 | XMS_ITS | Data Portability ---
Author Organization [place] [facility] Address [address] [place] [phone] Care Team Providers Care Substitute Crossing Guard Name Role Phone DEBI ORTEZ Referring Provider Unavailabl e Assessment Encounter Date Assessment Date Assessment LastModified by Organization Details LastModified Time 10/14/2017 10/14/2017 Kelly was seen today for measure and fit of a hinge knee sleeve. She fell directly on to her right knee 09/18/17 while waking down a sidewalk in [place]. Proximal tibial fracture is confirmed through MRI. This brace will be worn flight crew time clerk for the next two weeks before following up with the MD. The brace fit well giving adequate compression to the leg while not compressing the upright into the leg. She reports that the brace feels good and was able to walk with reduced pain. Kelly reports 4 of 10 pain while ambulating out of the brace. Followup with the MD is in two weeks. Followup with us will be as needed going forward for this brace. Orthotic Goals: Yes Reduce Pain Yes Promote Healing Yes Improve Stability Yes Provide Support and Compression Other (please specify): The patient will be seen on an as needed basis. Orthosis: is in stock and delivered today. [email or web address] Not available 10/14/2017 17:46:49 Plan of Treatment Reminders Order Date Submit Date Provider Last Modified By Organization Details Last Modified Time Details Appointments None record ed. Lab None record ed. Referral None record ed. Procedures None record ed. Surgeries None record ed. Imaging None record ed. Medication Orders None record ed. Patient TargetsNo targets recorded. Patient Instructions Encounter Date Encounter Id Patient Instructions Last Modified By Organization Details Last Modified Time 10/14/2017 [id number] {{Patient* Careg i ester Patient and caregiver}} {{was* was not were were not}} provided with {{oral* written o ral and written}} instructions regarding proper donning, doffing, wear, care and maintenance. {{Patient* Caregi ester Patient and caregiver}} {{did* did not}} demonstrate that they were able to properly don and doff the orthosis. {{Patient* Caregi ester Patient and caregiver}} {{was* was not were were not}} instructed to call if any questions or problems arise. [email or web address] Not available 10/14/2017 13:31:44 Reason for Referral None Reported. Procedures Surgical History Date Name Laterality Status Provider Name and Address Organization Details Recorded Time 8 OTS Procedures completed MEGA MCMAHON medicine assistant [address], [place], [phone] 10/14/2017 13:33:49 Imaging Results None recorded. Procedure Notes None recorded. Medical Equipment None Reported. Vitals Date Recorded Body height Provider Name an d Address Organization Details Last Updated DateTime 10/14/2017 157.48 cm Caren WILLIAM Fo [address], [place], [phone] 10/14/2017 13:20:49 Date Recorded Body weight Provider Name an d Address Organization Details Last Updated DateTime 10/14/2017 47193.93 g Caren WILLIAM Fo [address], [place], [phone] 10/14/2017 13:20:51 Social History None recorded. Functional Status None recorded. Mental Status None recorded. Family History Nothing Reported. Medical History No medical history recorded. Gynecological HistoryNo gynecological history recorded. Obstetrics History GPAL:G 0 P 0 0 0 0 Past Encounters Encounter ID Performer Location Encounter Start Date Encounter Closed Date Diagnosis/Indication Diagnosis SNOMED-CT Code Diagnosis ICD10 Code Diagnosis Note [id number] [place] [address] 10/14/2017 10:39:09 10/15/2017 09:46:55 Closed fracture of upper end of tibia 60371356 S82.101A Health Concerns Section Related Observation LastModified by Organization Detai ls LastModified Time None Recorded Concern Status LastModified by Organization Details LastModified Time None Recorded Advance Directives Directive None Recorded Payers Encounter Date Sequence Insurance Name Policy Number Policy [place] Covered Member ID [place] Member ID Guarantor Name 10/14/2017 1 [place]: [facility] Lianexis Giang [id number] Lianexis Lauro Notes Date Note Type Note Provider Name and Address Organization Details Recorded Time 10/14/2017 text/html Patient Accompan ied ByReported bypatient.patient accompaniedpatient not accompaniedOTS Generic HPIReported bypatient.Previous surgeriesnone reported Injuriesdate of injury 09/18/17 ALEXUS Bonilla [address], [place], [phone], [facility] 10/14/2017 17:47:29 OBGyn Episode No OBEpisode recorded.
--- OUTSIDE RECORDS SUMMARY | 2024-08-03 15:44 | XMS_ITS | Encounter Summary ---
Author Organization [facility], Address [address] [place] [address] Phone Care Team Providers Care Maintenance Carpenter Name Role Phone Sri Sahni DO Primary Care Pro vider Encounter Details Date Type Department Care Team (Late st Contact Info) Description 03/22/2024 Documentation Only [facility], [address] [place] [phone] Nathan Alba [place] [address] [place] [phone] Social History Tobacco Use Types Packs/Day Years [...] Visit [facility] [address] [place] [phone] Jackie Davis FNP-C [address] [place] [address] documented as of this encounter Visit Diagnoses Not on filedocumented in this encounter Care Teams Maintenance Carpenter Relationship Specialty Start Date End Date Sri Sahni DO PCP - General 05/09/19 documented as of this encounter
--- OUTSIDE RECORDS SUMMARY | 2024-08-03 15:44 | XMS_ITS | Encounter Summary ---
Author Organization [facility], Address [address] [place] [address] Phone Care Team Providers Care Postpartum Rn Name Role Phone Sri Sahni DO Primary Care Pro vider Reason for Visit * Reason Comments Med Refill Encounter Details Date Type Department Care Team (Late st Contact Info) Description 12/24/2020 Refill [facility] [address] [place] [phone] Jani Dent PA [address] [place] [address] [place] [phone] Social History Tobacco Use Types Packs/Day Years [...] Visit [facility] [address] [place] [phone] Jackie Davis FNP-C [address] [place] [address] [place] [phone] documented as of this encounter Visit Diagnoses Not on filedocumented in this encounter Care Teams Postpartum Rn Relationship Specialty Start Date End Date Sri Sahni DO PCP - General 05/09/19 documented as of this encounter
--- OUTSIDE RECORDS SUMMARY | 2024-08-03 15:44 | XMS_ITS | Encounter Summary ---
Author Organization [facility], Address [address] [place] [address] Phone Care Team Providers Care Hotbed Transfer Operator Name Role Phone Sri Sahni DO Primary Care Pro vider Encounter Details Date Type Department Care Team (Late st Contact Info) Description 08/03/2022 Documentation Only [facility], [address] [place] [phone] Jani Dent PA [address] [place] [phone] Social History Tobacco Use Types Packs/Day Years [...] Visit [facility] [address] [place] [phone] Jackie Davis FNP-C [address] [address] documented as of this encounter Visit Diagnoses Not on filedocumented in this encounter Care Teams Hotbed Transfer Operator Relationship Specialty Start Date End Date Sri Sahni DO PCP - General 05/09/19 documented as of this encounter
--- OUTSIDE RECORDS SUMMARY | 2024-08-03 15:44 | XMS_ITS | Encounter Summary ---
Author Organization [facility], Address [address] [place] [address] Phone Care Team Providers Care Slitter Service And Setter Name Role Phone Sri Sahni DO Primary Care Pro vider Encounter Details Date Type Department Care Team (Late st Contact Info) Description 04/18/2024 Documentation Only [facility], [address] [phone] Carlee Arndt [place] [address] [place] [phone] Social History Tobacco Use Types Packs/Day Years [...] Visit [facility] [address] [place] [phone] Jackie Davis FNP-C [address] [place] [address] documented as of this encounter Visit Diagnoses Not on filedocumented in this encounter Care Teams Slitter Service And Setter Relationship Specialty Start Date End Date Sri Sahni DO PCP - General 05/09/19 documented as of this encounter
--- OUTSIDE RECORDS SUMMARY | 2024-08-03 15:44 | XMS_ITS | Encounter Summary ---
Author Organization [facility], Address [address] [place] [address] Phone Care Team Providers Care Compound Specialist Name Role Phone Sri Sahni DO Primary Care Pro vider Encounter Details Date Type Department Care Team (Late st Contact Info) Description 01/21/2023 Documentation Only [facility], [address] [place] [phone] Jani Dent PA [address] [place] [phone] Social History Tobacco Use Types Packs/Day Years [...] Visit [facility] [address] [place] [phone] Jackie Davis FNP-C [address] [place] [address] documented as of this encounter Visit Diagnoses Not on filedocumented in this encounter Care Teams Compound Specialist Relationship Specialty Start Date End Date Sri Sahni DO PCP - General 05/09/19 documented as of this encounter
--- OUTSIDE RECORDS SUMMARY | 2024-08-03 15:44 | XMS_ITS | Clinical Summary ---
Author Organization [facility], Address [address] [place] [address] Phone Care Team Providers Care Training Generalist Name Role Phone Sri Sahni DO Primary Care Pro vider Allergies Active Allergy Reactions Criticality Noted Date Comments Buspirone Anxiety Low 08/15/2019 palpitations Cyclosporine Other (see comments) High 09/28/2014 Per Pt. almost Damaged transplanted kidney. Diazepam Other (see comments) High 07/10/2014 Per pt.Urine retention Doxycycline Nausea Only High 08/15/2019 Hydromorphone Rash Low 08/15/2019 Nsaids Other (see comments) 01/06/2011 unable b/c one kidney Other Other (see comments) 07/10/2014 BenzylAlc-prochlorpe razine-saccharin- Tardive dyskinesia Prochlorperazine Other (see comments) 08/15/2019 Quetiapine High 07/25/2019 Anxiety,insomnia Simvastatin Itching High 08/15/2019 Sulfamethoxazole-Trimetho prim Other (see comments) 07/10/2014 Don't remember, went to ER, Tacrolimus Other (see comments) 08/15/2019 Tapentadol Other (see comments) 07/10/2014 Pt. Cant remember reaction Medications clonazePAM (KlonoPIN) 1 MG tablet 0 Active LATUDA 20 MG tablet Take 20 mg by mouth every night 9 Active buPROPion SR (WELLBUTRIN SR) 100 MG 12 hr tablet Take 100 mg by mouth as directed 9 Active LORazepam (ATIVAN) 0.5 MG tablet TAKE 1 TO 2 TABLETS BY MOUTH TWICE A DAY NEEDED FOR ANXIETY 0 Active sertraline (ZOLOFT) 100 MG tablet TAKE 1 TABLET BY MOUTH EVERYDAY AT BEDTIME AND STOP PREVIOUS SERTRALINE 0 Active HYDROcodone-Bill taminophen (VICODIN PO) Take by mouth Act vasquez pramipexole (MIRAPEX) 0.125 MG tablet Take 0.125 mg by mouth in the morning and 0.125 mg in the evening and 0.125 mg before bedtime. prn. Active famotidine (PEPCID) 20 MG tablet TAKE 1 TABLET BY MOUTH 2 TIMES DAILY NEEDED FOR HEARTBURN. TAKE AT LEAST ONE DOSE AT BEDTIME 4 Active pantoprazole (PROTONIX) 40 MG EC tablet 40 mg 1 (one) time each day before breakfast prn 4 Active mycophenolate (CELLCEPT) 500 MG tablet Take 3 tablets (1,500 mg total) by mouth in the morning and 3 tablets (1,500 mg total) in the evening. 180 tablet 10 4 Active Active Problems Problem Noted Date Diagnosed Date Stage 3a chronic kidney disease 11/02/2023 Abscess of thigh 07/01/2023 Chronic kidney disease due to hypertension 08/15 History of renal transplant 08/15/2019 Systemic lupus erythematosus 08/15/2019 History of immunosuppressive therapy 08/15/2019 Stage 3b chronic kidney disease 01/18/2017 Overview (07/08/2020): Update for Diagnosis Load Hyperlipidemia 01/18/2017 Gastroesophageal reflux disease 08/17/2014 Resolved Problems Problem Noted Date Diagnosed Date Resolved Date Migraine 10/26/2019 03/18/2022 Depressive disorder 08/31/2019 03/07/20 21 Anxiety disorder 08/15/2019 03/07/2021 Rheumatoid arthritis 07/10/2014 021 Overview (08/15/2019): Seenohemi ernst in [facility] women Osteoporosis 07/10/2014 03/07/2021 Encounters Date Type Department Care Team Description 06/20/2024 Documentation Only [facility] [address] [place] [address] Magdalena Friedman, RN 06/09/2024 9:30 AM EST Office Visit [facility] [address] [place] [phone] Jani Dent PA History of renal transplant (Primary Dx); History of immunosuppressive therapy; Stage 3a chronic kidney disease (HCC) 06/09/2024 Documentation Only [facility] [address] [place] [address] Josee Guzman 06/09/2024 Documentation Only [facility] [address] [place] [address] Josee Guzman 05/10/2024 Documentation Only [facility] [address] [place] [phone] Carlee Arndt MA from Last 3 Months Immunizations Name Administration Dates Next Due H1N1 Inj 11/30/2009 Hep B, Adolescent or Pediatric 11/28/2015 Hepatitis B 05/27/2016,12/26/2015,11/28/2015 Influenza Split High Dose Pr eservative Free IM 03/11/2016 Influenza TIV (IM) 04/21/2016,03/13/2015 Influenza, MDCK, Quadrivalen t, with preservative 04/25/2021,04/10/2020,03/16/2017 Influenza, Unspecified 03/20/2017,03/05/2017 Moderna SARS-COV-2 04/25/2021,08/30/2020, 021 PPD Test 12/28/2014 Pneumococcal Polysaccharide 11/30/2009 Tdap 12/28/2014,08/01/2012 Family History Relation Status Comments Father Alive Mother Alive Social History Tobacco Use Types Packs/Day Years [...] on file Sexual Orientation Not on file Last Filed Vital Signs Vital Sign Reading Time Taken Comments Blood Pressure 98/54 06/09/2024 9:32 AM EST Pulse 69 11/30/2023 11:41 AM EDT Temperature 36.8 ??C (98.2 ??F) 11/30/2023 11:41 AM E DT Respiratory Rate 16 01/24/2018 12:00 PM EDT Oxygen Saturation 99% 11/30/2023 11:41 AM EDT Inhaled Oxygen Concentration - - Weight 59.2 kg (130 lb 9.6 oz) 06/09/2024 9:32 A M EST Height 160 cm (5' 3 ) 06/09/2024 9:32 AM EST Body Mass Index 23.13 06/09/2024 9:32 AM EST Plan of Treatment Upcoming Encounters Date Type Department Care Team (Late st Contact Info) Description 08/17/2024 2:30 PM EST Office Visit [facility] [address] [place] [address] Jackie Davis, ATTENDING ANESTHESIOLOGIST-C [address] [place] [phone] Health Maintenance Due Date Last Done Comments Hepatitis B Vaccine (1 of 3 - 19+ 3-dose series) 2001 05/27/2016, 12/26/2015, 11/28/2015, Additional history exists Pneumococcal Vaccine: Pediat rics (0 to 5 Years) and At-Risk Patients (6 to 64 Years) (3 of 3 - PCV) 08/01/2013 08/01/2012, 11/30/2009 Influenza Vaccine (#1) 2024 , 04/10/2020, 03/20/2017, Additional history exists Insurance [place] [employer] ([id number]) Care Teams Training Generalist Relationship Specialty Start Date End Date Sri Sahni DO PCP - General 05/09/19
--- OUTSIDE RECORDS SUMMARY | 2024-08-03 15:44 | XMS_ITS | Encounter Summary ---
Author Organization [facility], Address [address] [place] [address] Phone Care Team Providers Care Winemaker Name Role Phone Sri Sahni DO Primary Care Pro vider Encounter Details Date Type Department Care Team (Late st Contact Info) Description 05/31/2023 Documentation Only [facility] [place], [address] [place] [phone] Umberto Hood MD [address] [place] [phone] Social History Tobacco Use Types Packs/Day Years [...] Visit [facility] [address] [place] [phone] Jackie Davis FNP-C [address] [place] [address] documented as of this encounter Visit Diagnoses Not on filedocumented in this encounter Care Teams Winemaker Relationship Specialty Start Date End Date Sri Sahni DO PCP - General 05/09/19 documented as of this encounter
--- OUTSIDE RECORDS SUMMARY | 2024-08-03 15:44 | XMS_ITS | Encounter Summary ---
Author Organization [facility], Address [address] [place] [address] Phone Care Team Providers Care Steam Blocker Name Role Phone Sir Sahni DO Primary Care Pro vider Reason for Visit * Reason Comments Med Refill Encounter Details Date Type Department Care Team (Late st Contact Info) Description 04/27/2022 Refill [facility] [address] [place] [phone] Jani Dent PA [address] [place] [address] [place] [phone] Social History Tobacco Use Types Packs/Day Years [...] Visit [facility] [address] [place] [phone] Jackie Davis FNP-C [address] [place] [address] [place] [phone] documented as of this encounter Visit Diagnoses Not on filedocumented in this encounter Care Teams Steam Blocker Relationship Specialty Start Date End Date Sri Sahni DO PCP - General 05/09/19 documented as of this encounter
--- OUTSIDE RECORDS SUMMARY | 2024-08-03 15:44 | XMS_ITS | Encounter Summary ---
Author Organization [facility], Address [address] [place] [address] Phone Care Team Providers Care Operating Room Specialist Name Role Phone Sri Sahni DO Primary Care Pro vider Encounter Details Date Type Department Care Team (Late st Contact Info) Description 11/16/2021 Documentation Only [facility], [address] [place] [phone] Dakota Sim DO [address] [place] [phone] Social History Tobacco Use Types Packs/Day Years [...] Visit [facility] [address] [place] [phone] Jackie Davis FNP-C [address] [place] [address] documented as of this encounter Visit Diagnoses Not on filedocumented in this encounter Care Teams Operating Room Specialist Relationship Specialty Start Date End Date Sri Sahni DO PCP - General 05/09/19 documented as of this encounter
--- OUTSIDE RECORDS SUMMARY | 2024-08-03 15:44 | XMS_ITS | Encounter Summary ---
Author Organization [facility] [place], Address [address] [place] [address] Phone Care Team Providers Care Controller Instructor Name Role Phone Sri Sahni DO Primary Care Pro vider Encounter Details Date Type Department Care Team (Late st Contact Info) Description 06/09/2024 Documentation Only [facility], [address] [place] [phone] Josee Guzman [address] [place] [phone] Social History Tobacco Use Types Packs/Day Years [...] Visit [facility] [address] [place] [phone] Jackie Davis FNP-C [address] [place] [address] documented as of this encounter Visit Diagnoses Not on filedocumented in this encounter Care Teams Controller Instructor Relationship Specialty Start Date End Date Sri Sahni DO PCP - General 05/09/19 documented as of this encounter
--- OUTSIDE RECORDS SUMMARY | 2024-08-03 15:44 | XMS_ITS | Encounter Summary ---
Author Organization [facility], Address [address] [place] [address] Phone Care Team Providers Care Records And Information Manager Name Role Phone YaredgaSri Pollard DO Primary Care Pro vider Reason for Visit * Reason Comments Med Change Request Encounter Details Date Type Department Care Team (Late st Contact Info) Description 04/23/2023 Refill [facility] [place], [address] [place] [phone] Umberto Hood MD [address] [place] [phone] Social History Tobacco Use Types Packs/Day Years [...] Visit [facility] [address] [place] [phone] Jackie Davis FNP-C [address] [place] [address] documented as of this encounter Visit Diagnoses Not on filedocumented in this encounter Care Teams Records And Information Manager Relationship Specialty Start Date End Date Sri Sahni DO PCP - General 05/09/19 documented as of this encounter
--- OUTSIDE RECORDS SUMMARY | 2024-08-03 15:44 | XMS_ITS | Encounter Summary ---
Author Organization [facility], Address [address] [place] [address] Phone Care Team Providers Care It Programmer Analyst Name Role Phone Sri Sahni DO Primary Care Pro vider Encounter Details Date Type Department Care Team (Late st Contact Info) Description 03/22/2024 Documentation Only [facility], [address] [facility] [place] [phone] Nathan Alba [place] [address] [place] [phone] Social History Tobacco Use Types Packs/Day Years [...] Visit [facility] [address] [place] [phone] Jackie Davis FNP-C [address] [place] [address] documented as of this encounter Visit Diagnoses Not on filedocumented in this encounter Care Teams It Programmer Analyst Relationship Specialty Start Date End Date Sri Sahni DO PCP - General 05/09/19 documented as of this encounter
--- OUTSIDE RECORDS SUMMARY | 2024-08-03 15:44 | XMS_ITS | Encounter Summary ---
Author Organization [facility], Address [address] [place] [address] Phone Care Team Providers Care Sample Processor Name Role Phone Sri Sahni DO Primary Care Pro vider Encounter Details Date Type Department Care Team (Late st Contact Info) Description 06/09/2024 Documentation Only [facility], [address] [place] [phone] Josee Guzman [address] [place] [phone] Social History Tobacco Use Types Packs/Day Years [...] Visit [facility] [address] [place] [phone] Jackie Davis FNP-C [address] [place] [address] documented as of this encounter Visit Diagnoses Not on filedocumented in this encounter Care Teams Sample Processor Relationship Specialty Start Date End Date Sri Sahni DO PCP - General 05/09/19 documented as of this encounter
--- OUTSIDE RECORDS SUMMARY | 2024-08-03 15:44 | XMS_ITS | Encounter Summary ---
Author Organization [facility], Address [address] [place] [address] Phone Care Team Providers Care Awning Erector Name Role Phone Sri Sahni DO Primary Care Pro vider Reason for Visit * Reason Comments Med Refill Encounter Details Date Type Department Care Team (Late st Contact Info) Description 12/23/2019 Refill [facility] [address] [place] [phone] Carlos Haynes MD [address] [facility] [place] [phone] Social History Tobacco Use Types Packs/Day Years [...] Visit [facility] [address] [phone] Jackie Davis FNP-C [address] [facility] [place] [address] documented as of this encounter Visit Diagnoses Not on filedocumented in this encounter Care Teams Awning Erector Relationship Specialty Start Date End Date Sri Sahni DO PCP - General 05/09/19 documented as of this encounter
== END 2024-08-03 13:36 | disposition home or self-care (01) ==
PROVIDERS: Emergency Provider Emergency Medicine; PCP Internal Medicine
DX: L02.214 Cutaneous abscess of groin (principal)
CPT/HCPCS: 99283; 99284

== ENCOUNTER 2025-03-15 07:40 | Emergency (ER) | payer OTHER, MEDICAID, SELFPAY ==
--- OUTSIDE RECORDS SUMMARY | 2025-03-14 10:30 | XMS_ITS | Encounter Summary ---
Author Organization [facility] Address [address] [place] [address] Care Team Providers Care Transit Manager Name Role Phone Demetrius Roberto MD Primary Care Provider [phone] Reason for Visit * Reason Comments Headache On going problem Fatigue Diarrhea Encounter Details Date Type Department Care Team ([facility] st Contact Info) Description 03/14/2025 10:30 AM EDT Office Visit [facility] - [facility] [address] [place], [place] [phone] Vj Rios PA [address] [place], [place] Other migraine without status migrainosus, not intractable (Primary Dx); Iron deficiency Social History Tobacco Use Types Packs/Day Years Used Date Smoking Tobacco: Never Smokeless Tobacco: Never Alcohol Use Standard Drinks/Week Comments Not Asked 0 (1 standard drink = 0.6 oz pur e alcohol) Comments No Sex and Gender Information Value Date Recorded Sex Assigned at Not on file Legal Sex Female 3:10 PM EST Gender Identity Not on file Sexual Orientation Not on file documented as of this encounter Last Filed Vital Signs Vital Sign Reading Time Taken Comments Blood Pressure 103/61 03/14/2025 10:29 AM EDT Pulse 73 03/14/2025 10:29 AM EDT Temperature 36.4 C (97.6 F) 03/14/2025 10:29 AM EDT Respiratory Rate - - Oxygen Saturation 98% 03/14/2025 10:29 AM EDT Inhaled Oxygen Concentration - - Weight - - Height - - Body Mass Index - - documented in this encounter Ordered Prescriptions Prescription Sig Dispense Quantity Refills Last Filled Start Date End Date SUMAtriptan (IMITREX) 50 mg tablet Take 1 tablet (50 mg total) by mouth 1 (one) time if needed for migraine. May repeat dose once in 2 hours if no relief. Do not exceed 2 doses in 24 hours. 9 tablet 1 03/14/2025 documented in this encounter Plan of Treatment Upcoming Encounters Date Type Department Care Team (Late st Contact Info) Description 04/27/2025 8:00 AM EDT Appointment [facility] Nuclear Medicine [address] [place] [phone] 05/21/2025 8:30 AM EST Office Visit Adult Medicine [facility] [address] [place] [address] Demetrius Roberto MD [address] [place] [address] 06/13/2025 3:20 PM EST Office Visit Gastroenterology - [place] [address] [facility] [address] [phone] Yecenia Goddard PA [address] [phone] documented as of this encounter Visit Diagnoses Diagnosis Other migraine without status migrainosus, not intractable- Primary Iron deficiency Disorders of iron metabolism documented in this encounter Discontinued Medications Medication Sig Discontinue Reason Start Date End Da te SUMAtriptan (IMITREX) 50 mg tablet TAKE 1 TABLET BY MOUTH 1 TIME IF NEEDED FOR MIGRAINE. MAY REPEAT ONCE IN 2 HOURS IF NO RELIEF, MAX 2 DOSES/24 HOURS. Reorder 01/12/2025 03/14/2025 documented as of this encounter Care Teams Transit Manager Relationship Specialty Start Date End Date Demetrius Roberto MD [address] [place] [address] PCP - General Internal Medicine 02/18/22 documented as of this encounter
[2025-03-15 07:43] VITALS: BP 119/62; PULSE 74; RESP 16; TEMP 36.2; O2SAT 99; BMI 22.1
[2025-03-15 08:00] VITALS: BP 124/66; PULSE 65; RESP 15; TEMP 36.2; O2SAT 98
[2025-03-15 08:00] LABS: MANUAL DIFF FLAG NO
[2025-03-15 08:02] LABS: Hematocrit 34.3 % (37.0-47.0); Hemoglobin 11.0 g/dl (12.0-16.0); Imm Gran Abs Auto 0.05 X10*3/uL (0.00-0.03); Imm Gran Pct Auto 0.5 % (0.0-0.4); Lymphocytes Absolute Auto 1.6 X10*3/uL (1.2-4.9); Mean Corpuscular HGB Conc 32.1 g/dl (31.0-35.0); Mean Corpuscular Hemoglobin 28.6 pg (27.0-33.0); Mean Corpuscular Volume 89.3 fL (80.0-98.0); NRBC Abs Auto 0.000 X10*3/uL (0.0-0.012); NRBC Pct Auto 0.0 /100WBC (0.0-0.2); Platelet Count 276 X10*3/uL (160-400); Red Blood Count 3.84 X10*6/uL (4.20-5.50); White Blood Count 9.6 X10*3/uL (4.8-10.8)
--- NOTE | 2025-03-15 08:05 | ED.GENADULT ---
HPI - General Adult General Chief complaint: General Medical Stated complaint: migraines, hx of kidney trans. 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, migraines, HLD, anxiety and depression presenting to the emergency department with complaint of migraine since Wednesday. Has associated photophobia. Denies nausea or vomiting. Has been using sumatriptan without improvement. Also notes that since sometime over the summer she has had decreased appetite, fatigue. States that she is seeing her hand ii blocker for evaluation of low iron levels, has infusion scheduled. Denies any blurred vision, double vision or other visual changes. Headache not worse with standing, not worst in the morning, not worst headache of life, denies sudden onset. MD complaint: Migraine Onset (ago): day(s) Related Data Home Medications ?Medication ?Instructions ?Recorded ?Confirmed clonazepam 2 mg tablet 2 mg PO BEDTIME 01/12/23 01/12/23 hydrocodone 7.5 mg-acetaminophen 1 tab PO QD-TID severe pain 01/12/23 01/12/23 325 mg tablet lorazepam 1 mg tablet 1 - 2 mg PO BEDTIME PRN insomnia 01/12/23 01/12/23 mycophenolate mofetil 500 mg tablet 1,000 mg PO BID 01/12/23 01/12/23 pantoprazole 40 mg tablet,delayed 40 mg PO BID 01/12/23 01/12/23 release progesterone micronized 100 mg 100 mg PO BEDTIME 01/12/23 01/12/23 capsule sertraline 100 mg tablet 100 mg PO BEDTIME 01/12/23 01/12/23 pramipexole 0.125 mg tablet 0.125 mg PO BEDTIME 01/19/23 01/19/23 Previous Rx's ?Medication ?Instructions ?Recorded lurasidone 20 mg tablet 20 mg PO DAILY #30 tabs 01/13/23 clindamycin HCl 300 mg capsule 300 mg PO Q8H 7 days #21 caps 08/03/24 levofloxacin 750 mg tablet 750 mg PO DAILY 7 days #7 tabs 08/03/24 Allergies Allergy/AdvReac Type Severity Reaction Status Date / Time cyclosporine (CYCLOSPORINE) Allergy Severe kidney Verified 03/15/25 07:44 issues NSAIDS (Non-Steroidal Allergy Severe CAUTION Verified 03/15/25 07:44 Anti-Inflamma (NSAIDS FOR KIDNEY (NON-STEROIDAL ANTI-INFLAMMA) TRANSPLANT trimethoprim (From BACTRIM) Allergy Severe GUILLERMO Verified 03/15/25 07:44 FLARE UP simvastatin (SIMVASTATIN) Allergy Intermediate itchy Verified 03/15/25 07:44 oxycodone Allergy Unknown Unknown Verified 03/15/25 07:44 tapentadol (From NUCYNTA) AdvReac Severe URINARY Verified 03/15/25 07:44 RETENTION doxycycline (DOXYCYCLINE) AdvReac Mild NAUSEA Verified 03/15/25 07:44 BACTRIM Allergy Unknown Unknown Uncoded 03/03/24 07:43 compazine Allergy Unknown Unknown Uncoded 03/03/24 07:43 Dicyclomine HCl Allergy Unknown Unknown Uncoded 03/03/24 07:43 PROGRAF Allergy Unknown Unknown Uncoded 03/03/24 07:43 DILAUDID AdvReac Unknown Unknown Uncoded 03/03/24 07:43 Review of Systems Review of Systems: As per HPI Yes all other systems are reviewed and are negative Constitutional: Constitutional: Reports as per HPI PMFSH Past Medical History Medical History Migraines [place] (hard of hearing) Rheumatoid arthritis Gastritis Anxiety Back pain Arthritis Lupus Surgical History H/O wrist surgery H/O knee surgery Hx of cholecystectomy Transplant Kidney transplant recipient Social History Social History Household Members: Family Household Members Other:: Kelly currently resides with her biological mother. Alcohol intake: never Patient Tobacco Use Status: Never used Tobacco Smoked in Last 30 Days: No Use of substances other than those prescribed or required for medical reasons: No Substance Use Type: Marijuana Advance Directives: No Advance Directives Information Provided: Yes Patient : No Physical Exam ED Vital Signs: Vital Signs - 24 hr 03/15/25 07:43 03/15/25 08:00 03/15/25 10:00 Temperature 97.1 F 97.1 F 97.3 F Pulse Rate 74 65 62 Respiratory Rate 16 15 15 Blood Pressure 119/62 124/66 124/62 Pulse Oximetry 99 98 97 Oxygen Delivery Method Room Air Room Air Room Air BMI result Body Mass Index 22.1 Vital signs have been reviewed and appear to be correct. Blood pressure normal. Heart rate normal. Respiratory rate normal. Temperature normal. Oxygen saturation normal. Const General: cooperative, healthy appearing and no acute distress Orientation/consciousness: oriented to person, oriented to place, oriented to time and patient oriented x3 Limitations: no limitations HENMT Head: Yes normocephalic and Yes atraumatic Ears: external ears normal General nose exam: Normal external nose present Face and sinus: Yes face symmetric Mouth: oropharynx normal and moist mucous membranes Throat: Yes uvula midline Eyes Pupils: Equal, round and reactive pupils present Neck Neck: Yes normal visual inspection and Yes supple Resp Effort & Inspection: normal respiratory effort and able to speak in complete sentences Auscultation: clear to auscultation bilaterally Cardio Rate: regular rate Rhythm: regular rhythm Heart sounds: S1 normal heart sound present and S2 normal heart sound present GI Palpation (GI): Soft to palpation and nontender Auscultation: normoactive bowel sounds General: Yes no CVA tenderness Back/Spine/Pelvis Back: no CVA tenderness Skin General skin exam: elasticity normal and turgor normal Neuro General: oriented to person, oriented to place, oriented to time, patient oriented x3, moves all extremities, no focal motor deficits and CN's II-XI intact bilaterally Cranial nerves: Yes Equal, round and reactive pupils present Cognition (Neuro): normal cognition Extrem General: Yes full ROM, Yes no pedal edema and Yes no calf tenderness Psych Mental Status: mental status grossly normal Affect: normal affect Thought process: Normal thought process present Medications Administered Discontinued Medications Generic Name Dose Route Start Last Admin Trade Name Freq PRN Reason Stop Dose Admin Diphenhydramine HCl 25 mg 03/15/25 08:28 03/15/25 08:44 Diphenhydramine Hcl 50 Mg/Ml Vial IVPUSH 03/15/25 08:29 25 mg ONCE ONE Administration Sodium Chloride 1,000 mls @ 999 mls/hr 03/15/25 08:30 03/15/25 08:40 Ns IV 03/15/25 09:30 999 mls/hr .Q1H1M BRENDA Administration Ketorolac Tromethamine 15 mg 03/15/25 08:28 03/15/25 08:43 Ketorolac Tromethamine 15 Mg/Ml Vial IVPUSH 03/15/25 08:29 15 mg ONCE ONE Administration Metoclopramide HCl 10 mg 03/15/25 08:28 03/15/25 08:44 Metoclopramide Hcl 10 Mg/2 Ml Vial IVPUSH 03/15/25 08:29 10 mg ONCE ONE Administration Medical Decision Making Medical Decision Making [facility] Narrative: Patient is a 44-year-old female with history of 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, migraines, HLD, anxiety and depression presenting to the emergency department with complaint of migraine since Wednesday. On exam patient is awake, A+Ox3, VS WNL, afebrile, normal neurological exam without focal deficits, physical exam findings as above. Given reported symptoms and physical exam findings, initial differential includes but is not limited to migraine, tension headache, electrolyte abnormality. Less likely viral illness but swabs ordered by vacuum extractor operator. No red flag findings concerning for ICH/SAH, acute glaucoma, carotid artery dissection, CO poisoning, encephalitis, meningitis, preeclampsia, pseudotumor, temporal arteritis/giant cell arteritis. Labs notable for mild anemia not at transfusion level, no evidence of ERAN. Viral serology negative. Patient reports significant improvement in headache after medications given in the ED and feels comfortable with discharge home. Advised follow up with PCP. Return precautions discussed. Patient verbalized understanding of and agreement with plan. Differential Diagnosis Differential Diagnoses: The differential diagnosis associated with the presentation includes As per [facility] Admission/Observation Consideration of admission/observation: Escalation of care including admission/observation considered Patient would have been admitted to the hospital had their clinical presentation warranted hospital admission. Lab Data [facility] Lab Attestation statement: I reviewed the patient's lab results. as per [facility] 03/15/25 07:56 03/15/25 07:56 Labs: Lab Results 03/15/25 Range/Units 07:56 WBC 9.6 (4.8-10.8) X10*3/uL RBC 3.84 L (4.20-5.50) X10*6/uL Hgb 11.0 L (12.0-16.0) g/dl Hct 34.3 L (37.0-47.0) % MCV 89.3 (80.0-98.0) fL MCH 28.6 (27.0-33.0) pg MCHC 32.1 (31.0-35.0) g/dl RDW 12.8 (11.0-16.0) % Plt Count 276 D (160-400) X10*3/uL MPV 9.5 (9.4-12.3) fL Immature Gran % (Auto) 0.5 H (0.0-0.4) % Neut % (Auto) 74.3 H (45-73) % Lymph % (Auto) 17.0 L (20-40) % Seminole % (Auto) 7.5 (2-11) % Eos % (Auto) 0.4 (0-4) % Baso % (Auto) 0.3 (0-2) % Lymph # (Auto) 1.6 (1.2-4.9) X10*3/uL Seminole # (Auto) 0.7 (0.1-1.2) X10*3/uL Eos # (Auto) 0.0 (0.0-0.4) X10*3/uL Baso # (Auto) 0.0 (0.0-0.2) X10*3/uL Abs Immat Gran (auto) 0.05 H (0.00-0.03) X10*3/uL Absolute Neuts (auto) 7.1 (2.0-8.3) x10*3/uL Absolute Nucleated RBC 0.000 (0.0-0.012) X10*3/uL Nucleated RBC % (auto) 0.0 (0.0-0.2) /100WBC Sodium 138 (135-145) mmol/L Potassium 4.4 (3.3-5.1) mmol/L Chloride 108 (96-108) mmol/L Carbon Dioxide 23 (22-29) mmol/L Anion Gap 11 L (12-20) BUN 19 H (9-16) mg/dL Creatinine 1.27 (0.5-1.4) mg/dL Estim Creat Clear Calc 47.7 Estimated GFR 46 Random Glucose 119 H (60-115) mg/dL Calcium 8.6 D (8.4-10.2) mg/dL Total Bilirubin 0.2 (0.0-1.0) mg/dL AST 21 (5-31) U/L ALT 25 (0-31) U/L Alkaline Phosphatase 72 (39-117) U/L Total Protein 7.1 (6.5-8.0) g/dL Albumin 4.1 (3.5-5.0) g/dL COVID-19 (MOO) Negative (Negative) COVID-19 Clin Com See Note Influenza Type A (JONATHAN) Negative (Negative) Influenza Type B (JONATHAN) Negative (Negative) Influenza A & B Note See Note External Record Review External record reviewed: Inpatient record, Office record and Outpatient record Prescription Management I considered prescription management with: Other Discharge Plan Discharge Clinical Impression: Migraine Qualifiers: Migraine type: unspecified Patient Disposition: Home, Self-Care Instructions: Migraine Headache (ED) Additional Instructions: You have been evaluated in the emergency department today for headache. Your evaluation did not show evidence of medical conditions requiring emergent intervention at this time, and your pain improve with medication in the ED. Continue to use your sumatriptan as needed. Please follow-up with your primary care provider within 2 days. Return to the emergency department if you experience worsening or uncontrolled pain, vision changes, recurrent vomiting, difficulty with normal activities, abnormal behavior, difficulty walking, numbness, weakness, or any other concerning symptoms. Prescriptions: No Action clindamycin HCl 300 mg capsule 300 mg PO Q8H 7 Days Qty: 21 0RF levofloxacin 750 mg tablet 750 mg PO DAILY 7 Days Qty: 7 0RF sertraline 100 mg tablet 100 mg PO BEDTIME clonazepam 2 mg tablet 2 mg PO BEDTIME lorazepam 1 mg tablet 1 - 2 mg PO BEDTIME PRN (Reason: insomnia) hydrocodone-acetaminophen 7.5-325 mg tablet 1 tab PO QD-TID pantoprazole 40 mg tablet,delayed release (DR/EC) 40 mg PO BID progesterone micronized 100 mg capsule 100 mg PO BEDTIME mycophenolate mofetil 500 mg Tablet 1,000 mg PO BID Patient Comments: Pharmacy stated 3 tabs 1500 mg BID however patient reports she takes 2 tabs 1000 mg BID. Her doctor is aware however the prescription has not changed per patient. lurasidone 20 mg tablet 20 mg PO DAILY Qty: 30 0RF Rx Instructions: must administer with food (at least 350 calories) pramipexole 0.125 mg Tablet 0.125 mg PO BEDTIME Print Language: Hungarian
[2025-03-15 08:18] LABS: Alanine Aminotransferase 25 U/L (0-31); Albumin Level 4.1 g/dL (3.5-5.0); Alkaline Phosphatase 72 U/L (39-117); Anion Gap 11 (12-20); Aspartate Amino Transferase 21 U/L (5-31); Blood Urea Nitrogen 19 mg/dL (9-16); Calcium 8.6 mg/dL (8.4-10.2); Carbon Dioxide 23 mmol/L (22-29); Chloride 108 mmol/L (96-108); Creatinine Clr Calc Pharmacy 47.7; Estimated Glomerular Filt Rate 46; IDNOW Serial# 58CA691E; Potassium 4.4 mmol/L (3.3-5.1); Sodium 138 mmol/L (135-145); Total Protein 7.1 g/dL (6.5-8.0)
[2025-03-15 08:19] LABS: COVID-19 Test Negative (Negative); IDNOW Serial# 55D5AD1C; Influenza B2 Negative (Negative)
--- OUTSIDE RECORDS SUMMARY | 2025-03-15 09:22 | XMS_ITS | Encounter Summary ---
Author Organization [facility] Address [address] [place] [phone] Phone Care Team Providers Care Thoracic Medicine Physician Name Role Phone Indu Cook MD Unavailable Brittanie Coy MD Unavailable [phone] Sri Sahni DO Primary Car e Provider Pcp, Unknown Primary Care Provider UnavailDemetrius Burton MD Primary Care Provider Reason for Referral * MRI/CAT Scan - Closed Specialty Diagnoses / Procedures Referred By Contac t Referred To Contact Procedures MRI Spine (Bone) Outside (No Interpretation) Nicole Valdovinos MD Phone: tel: fax: mailto:[email or web address] Referral ID Status Reason Start Date Expiration Date Visits Re quested Visits Authorized [id number] Closed 05/05/2017 05/05/2018 1 1 Encounter Details Date Type Department Care Team (Late st Contact Info) Description 05/05/2017 Transcribe Orders [facility] [address] [place] [address] RyleyKelli wright [address] [place] [phone] [email or web address] Social History Tobacco Use Types Packs/Day Years Used Date Smoking Tobacco: Never Smokeless Tobacco: Never Alcohol Use Standard Drinks/Week Comments No 0 (1 standard drink = 0.6 oz pur e alcohol) Comments Unknown Sex and Gender Information Value Date Recorded Sex Assigned at Female 04/11/2024 1:59 PM EDT Legal Sex Female 7:02 PM EST Gender Identity Female 04/11/2024 1:59 PM EDT Sexual Orientation Straight 04/11/2024 1: 59 PM EDT documented as of this encounter Plan of Treatment Upcoming Encounters Date Type Department Care Team (Late st Contact Info) Description 04/03/2025 1:00 PM EDT Office Visit [facility] [place] [address] [place] [address] Ana Retana MD [address] [place] [address] [email or web address] 05/01/2025 1:15 PM EDT Office Visit [facility] [address] [address] Mar Hays MD [address] [place] [id number] [email or web address] documented as of this encounter Results * MRI Spine (Bone) Outside (No Interpretation) (01/10/2017 12:00 AM EDT) Narrative SANDRINE_[facility]STON[facility] - 05/05/2017 5:29 PM EDT This study is for PACS storage only and not for interpretation. us Nicole Valdovinos MD IMG OUTSIDE IMAGING W/OUT INTE RPRETATION Final Result PERCJEANNIE_[facility] documented in this encounter Visit Diagnoses Not on filedocumented in this encounter Care Teams Thoracic Medicine Physician Relationship Specialty Start Date End Date NicolaskarleneelvisnicholesandraSri boland DO [address] [place] [phone] PCP - General Internal Medicine 12/08/16 04/10/24 Pcp, Unknown PCP - General 04/11/24 10/01/24 Demetrius Roberto MD [address] [place] [address] PCP - General Internal Medicine 10/02/24 Indu Cook MD [address] [place] [address] Endocrinology, [place] [address] [email or web address] Historical LMR Provider 11/17/14 07/12/21 Brittanie Coy MD [address] [place] [address] [address] [place] [address] [email or web address] Historical LMR Provider 11/17/14 07/12/21 documented as of this encounter Additional Source Comments The information contained in this document represents components of the legal health record. It is not the complete legal health record.[facility]
--- OUTSIDE RECORDS SUMMARY | 2025-03-15 09:22 | XMS_ITS | Encounter Summary ---
Author Organization [facility], Address [address] [place] [address] Phone Care Team Providers Care Acting Section Chief Name Role Phone Demetrius Roberto MD Primary Care Provider [phone] Encounter Details Date Type Department Care Team (Late st Contact Info) Description 06/09/2024 Documentation Only [facility], [address] [place] [phone] Josee Guzman Social History Tobacco Use Types Packs/Day Years [...] Care Team (Late st Contact Info) Description 06/01/2025 9:15 AM EST Office Visit [facility] [address] [place] [phone] Umberto Hood MD [address] [facility] [place] [phone] documented as of this encounter Visit Diagnoses Not on filedocumented in this encounter Care Teams Acting Section Chief Relationship Specialty Start Date End Date Demetrius Roberto MD [address] [place] [address] PCP - [facility] 10/04/24 documented as of this encounter
--- OUTSIDE RECORDS SUMMARY | 2025-03-15 09:22 | XMS_ITS | Encounter Summary ---
Author Organization [facility], Address [address] [place] [address] Phone Care Team Providers Care Knitter Machine Name Role Phone Demetrius Roberto MD Primary Care Provider Encounter Details Date Type Department Care Team (Late st Contact Info) Description 04/18/2024 Documentation Only [facility], [address] [place] [phone] Carlee Arndt [address] [phone] Social History Tobacco Use Types Packs/Day Years [...] Visit [facility] [address] [phone] Umberto Hood MD [address] [place] [phone] documented as of this encounter Visit Diagnoses Not on filedocumented in this encounter Care Teams Knitter Machine Relationship Specialty Start Date End Date Demetrius Roberto MD [address] [place] [phone] PCP - [facility] 10/04/24 documented as of this encounter
--- OUTSIDE RECORDS SUMMARY | 2025-03-15 09:22 | XMS_ITS | Encounter Summary ---
Author Organization [facility], Address [address] [place] [address] Phone Care Team Providers Care Topographic Computator Name Role Phone Demetrius Roberto MD Primary Care Provider Encounter Details Date Type Department Care Team (Late st Contact Info) Description 05/10/2024 Documentation Only [facility], [address] [place] [phone] Carlee Arndt [address] [phone] Social History Tobacco Use Types [...] Visit [facility] [address] [place] [phone] Umberto Hood MD [address] [place] [phone] documented as of this encounter Visit Diagnoses Not on filedocumented in this encounter Care Teams Topographic Computator Relationship Specialty Start Date End Date Demetrius Roberto MD [address] [place] [address] PCP - [facility] 10/04/24 documented as of this encounter
--- OUTSIDE RECORDS SUMMARY | 2025-03-15 09:22 | XMS_ITS | Encounter Summary ---
Author Organization [facility], Address [address] [place] [address] Phone Care Team Providers Care It Applications Manager Name Role Phone Demetrius Roberto MD Primary Care Provider [phone] Reason for Visit * Reason Comments Med Refill Encounter Details Date Type Department Care Team (Late st Contact Info) Description 12/23/2019 Refill [facility] [address] [place] [address] Carlos Haynes MD [address] [place] [address] [place] [address] Social History Tobacco Use Types Packs/Day Years [...] Visit [facility] [address] [place] [address] Umberto Hood MD [address] [place] [address] [place] [address] documented as of this encounter Visit Diagnoses Not on filedocumented in this encounter Care Teams It Applications Manager Relationship Specialty Start Date End Date Demetrius Roberto MD [address] [place] [phone] PCP - [facility] 10/04/24 documented as of this encounter
--- OUTSIDE RECORDS SUMMARY | 2025-03-15 09:22 | XMS_ITS | Encounter Summary ---
Author Organization [facility], Address [address] [place] [address] Phone Care Team Providers Care Thread Twister Name Role Phone Demetrius Roberto MD Primary Care Provider Encounter Details Date Type Department Care Team (Late st Contact Info) Description 06/09/2024 Documentation Only [facility], [address] [place] [phone] Josee Guzman Social History Tobacco Use Types [...] Visit [facility] [address] [place] [phone] Umberto Hood MD [address] [place] [phone] documented as of this encounter Visit Diagnoses Not on filedocumented in this encounter Care Teams Thread Twister Relationship Specialty Start Date End Date Demetrius Roberto MD [address] [place] [phone] PCP - [facility] 10/04/24 documented as of this encounter
--- OUTSIDE RECORDS SUMMARY | 2025-03-15 09:22 | XMS_ITS | Encounter Summary ---
Author Organization [facility], Address [address] [place] [address] Phone Care Team Providers Care Client Solutions Director Name Role Phone Demetrius Roberto MD Primary Care Provider Encounter Details Date Type Department Care Team (Late st Contact Info) Description 03/22/2024 Documentation Only [facility], [address] [place] [address] [place] [address] [place] [phone] Social History Tobacco Use Types Packs/Day [...] Visit [facility] [address] [place] [phone] Umberto Hood MD [address] [place] [phone] documented as of this encounter Visit Diagnoses Not on filedocumented in this encounter Care Teams Client Solutions Director Relationship Specialty Start Date End Date Demetrius Roberto MD [address] [place] [address] PCP - [facility] 10/04/24 documented as of this encounter
--- OUTSIDE RECORDS SUMMARY | 2025-03-15 09:22 | XMS_ITS | Clinical Summary ---
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 1 Active hydrOXYzine (ATARAX) 25 MG tablet Take 1 tablet (25 mg total) by mouth 2 (two) times a day. 60 tablet 0 6 Active Additional Information Patient taking differently: 10 mgOral3 times daily, Reported on 01/04/2018 HYDROcodone-acet aminophen (NORCO) 5-325 mg per tablet Take 1 tablet by mouth every 6 (six) hours as needed for pain (specific location in comments). Active levonorgestrel (MIRENA) 20 mcg/24 hr (5 years) intrauterine device 7 Active lurasidone (LATUDA) 40 mg Tab Take 20 mg by mouth nightly at bedtime. Active sertraline (ZOLOFT) 50 MG tablet Take 75 mg by mouth daily. Active buPROPion (WELLBUTRIN SR) 200 MG SR 12 hr tablet Take 200 mg by mouth daily. Active raNITIdine (ZANTAC) 150 MG tablet Take 150 mg by mouth 2 (two) times a day. Active pantoprazole (PROTONIX) 40 MG tablet Take 40 mg by mouth daily. Active doxycycline monohydrate (ADOXA) 100 MG tablet Take 100 mg by mouth 2 (two) times a day. Active betamethasone dipropionate 0.05 % ointmentIndicati ons:Hidradenitis suppurativa Apply topically 2 (two) times a day. Apply topically to inflamed areas up to two times a day for no more than 2 weeks per month. Side effects of topical steroid use include pigment change, telangiectasias , atrophy, striae formation. 45 g 6 5 Active chlorhexidine (HIBICLENS) 4 % external liquidIndication s:Hidradenitis suppurativa Use in both groins and armpits once weekly, lather, let sit for 1 minute and then wash off 532 mL 11 5 Active acetaminophen (TYLENOL) 500 MG tablet Take 2 tablets (1,000 mg total) by mouth every 8 (eight) hours as needed for pain (specific location in comments). 30 tablet 5 Active mupirocin (BACTROBAN) 2 % ointment Apply topically 3 (three) times a day. 22 g 5 Active Active Problems Problem Noted Date Diagnosed Date Systemic lupus erythematosus 06/16/2012 Overview (2014): Systemic lupus erythematosus Uncoded S/P Transplant of kidney 06/16/2012 Overview (2014): S/P Transplant of kidney Aseptic necrosis of bone 06/16/2012 Overview (2014): Aseptic necrosis of bone Osteoporosis 06/16/2012 Overview (2014): Osteoporosis Encounters Date Type Department Care Team Description 01/02/2025 11:00 AM EDT Telemedicine [facility] [address] [address] Shari Stern PA-C Hidradenitis suppurativa (Primary Dx) 12/19/2024 9:44 AM EDT - 12/19/2024 11:59 PM EDT Hospital Encounter [facility] [place] [address] [place] [address] Loni Hays MD Discharge Disposition: Home or Self Care 12/19/2024 8:30 AM EDT Office Visit [facility] [address] [address] Loni Hays MD Hidradenitis suppurativa (Primary Dx) from Last 3 Months Family History Medical History Relation Comments Psoriasis Maternal Grandmother Lupus Neg Hx Rheumatoid arthritis Neg Hx Relation Status Comments Maternal Grandmother Social History Tobacco Use Types Packs/Day Years Used Date Smoking Tobacco: Never Smokeless Tobacco: Never Tobacco Cessation:Counseling Given: Not Answered Alcohol Use Standard Drinks/Week Comments No 0 (1 standard drink = 0.6 oz pur e alcohol) Education Answer Date Recorded Are you interested in more education? Not on ridge e 11/14/2022 Are you concerned about learning? Not on file 11/14/2022 No 11/14/2022 No 11/14/2022 Digital Access Answer Date Recorded No 11/29/2022 No 11/29/2022 Reliable internet access at home? Not on file 11/29/2022 Device with a working camera? Not on file Comments No Sex and Gender Information Value Date Recorded Sex Assigned at Female 04/11/2024 1:59 PM EDT Legal Sex Female 7:02 PM EST Gender Identity Female 04/11/2024 1:59 PM EDT Sexual Orientation Straight 04/11/2024 1: 59 PM EDT Last Filed Vital Signs Vital Sign Reading Time Taken Comments Blood Pressure 103/54 10/02/2024 2:44 PM EDT Pulse 63 10/02/2024 2:44 PM EDT Temperature 36.3 C (97.4 F) 10/02/2024 2:44 PM EDT Respiratory Rate 15 04/05/2019 1:00 PM EDT Oxygen Saturation 99% 10/02/2024 2:44 PM EDT Inhaled Oxygen Concentration - - Weight 59 kg (130 lb) 10/02/2024 2:44 PM EDT Height 160 cm (5' 3 ) 10/02/2024 2:44 PM EDT Body Mass Index 23.03 10/02/2024 2:44 PM EDT Plan of Treatment Upcoming Encounters Date Type Department Care Team (Late st Contact Info) Description 04/03/2025 1:00 PM EDT Office Visit [facility] [place] [address] [place] [address] Ana Retana MD [address] [place] [address] [email or web address] 05/01/2025 1:15 PM EDT Office Visit [facility] [address] [address] Loni Hays MD [address] [place] [address] [email or web address] Health Maintenance Due Date Last Done Comments DEPRESSION SCREENING 1994 HIV ONE-TIME SCREENING (18-65 YEARS) 2000 PAP SMEAR 2003 PNEUMOCOCCAL VACCINES (0-49 years) (2 of 2 - PCV) 08/01/2013 08/01/2012 MAMMOGRAM 2022 Adult Td,Tdap Booster 12/28/2024 12/28/2014, 013 INFLUENZA VACCINE (#1) 2025 , 04/25/2021, 04/21/2016, Additional history exists COVID-19 VACCINE (8 - Moderna risk season) 2025 04/21/2024, 08/07/2023, 07/24/2022, Additional history exists HEPATITIS C SCREENING Completed 07/06/2001 SMOKING STATUS SCREENING (Once After 26 Yrs) Completed 12/19/2024 HEPATITIS A VACCINES Aged Out No long er eligible based on patient's age to complete this topic HIB VACCINES Aged Out No longer eligi ble based on patient's age to complete this topic MENINGOCOCCAL VACCINES (ACWY) Aged Out No longer eligible based on patient's age to complete this topic MENINGOCOCCAL VACCINES (B) Aged Out N o longer eligible based on patient's age to complete this topic Medical Devices Implanted Type [employer] Device Identifier Shelf Expiration Date Model / Serial / Lot Kidney Right: Kidney Iud-04/05/2017 Implanted:04/05 (Quantity not on file) Left Wrist Screw-04/05/2018 Implanted:04/05 (Quantity not on file) Procedures Procedure Name Priority Date/Time Associated Diagnosis Comments CBC AND DIFFERENTIAL Routine 12/19/2024 9:45 AM EDT Hidradenitis suppurativa LFTS (HEPATIC PANEL) Routine 12/19/2024 9:45 AM EDT Hidradenitis suppurativa DERMATOPATHOLOGY Routine 12/19/2024 12:0 0 AM EDT from Last 3 Months Results * LFTs (hepatic panel) (12/19/2024 9:45 AM EDT) TOTAL PROTEIN 7.4 6.4 - 8.3 g/dL [facility] ALBUMIN 4.2 3.5 - 5.2 g/dL [facility] GLOBULIN 3.2 2.2 - 4.2 g/dL [facility] AST 23 10 - 50 U/L [facility] ALT 23 10 - 50 U/L [facility] ALKALINE PHOSPHATASE 79 35 - 130 U/L [facility] TOTAL BILIRUBIN <0.2 0.0 - 1.0 mg/dL [facility] DIRECT BILIRUBIN <0.1 0.0 - 0.3 mg/dL [facility] Blood 12/19/2024 9:45 AM EDT 12/19/2024 9:46 AM EDT us Loni Hays MD LAB BLOOD ORDERABLES Claire reji Result [facility] [address] [place] [address] * (ABNORMAL) CBC and differential (12/19/2024 9:45 AM EDT) WBC 10.48 4.00 - 11.00 K/uL [facility] RBC 4.02 4.00 - 5.20 M/uL [facility] HGB 11.4(L) 12.0 - 16.0 g/dL [facility] HCT 37.3 36.0 - 46.0 % [facility] PLT 327 150 - 450 K/uL [facility] MCV 92.8 80.0 - 100.[address] [facility] MCH 28.4 27.0 - 31.0 pg [facility] MCHC 30.6(L) 32.0 - 36.0 g/dL [facility] RDW 13.6 11.5 - 14.5 % [facility] MPV 10.4 8.4 - 12.0 fL [facility] NRBC 0.00 0.00 /100 WBCs [facility] ABSOLUTE NRBC 0.00 0.00 K/uL [facility] DIFF METHOD Auto [facility] NEUTS 60.7 48.0 - 76.0 % [facility] LYMPHS 25.6 18.0 - 41.0 % [facility] MONOS 11.7(H) 4.0 - 11.0 % [facility] EOS 1.0 0.0 - 5.0 % [facility] BASOS 0.4 0.0 - 1.5 % [facility] % IMMATURE GRANS 0.6 0.0 - 0.9 % [facility] ABSOLUTE NEUTS 6.36 1.92 - 7.60 K/uL [facility] Comment:1.21-5.39 cells/KL i s the reference range for individuals with the Lucero null phenotype ABSOLUTE LYMPHS 2.68 0.72 - 4.10 K/uL [facility] ABSOLUTE MONOS 1.23(H) 0.16 - 1.10 K/uL [facility] ABSOLUTE EOS 0.11 0.00 - 0.50 K/uL [facility] ABSOLUTE BASOS 0.04 0.00 - 0.15 K/uL [facility] ABS IMMATURE GRANS 0.06 0.00 - 0.09 K/uL [facility] ABSOLUTE NEUTROPHIL COUNT 6.36 1.92 - 7.60 K/uL [facility] Comment: Automated cell count. Manual ANC may differ if performed. 1.21-5.39 cells/KL is the reference range for individuals with the Lucero null phenotype Blood 12/19/2024 9:45 AM EDT 12/19/2024 9:46 AM EDT us Loni Hays MD LAB BLOOD ORDERABLES Claire mendoza Result Performing Organization Address City/State/[facility] Co de Phone Number [facility] [address] [place] [address] * Dermatopathology (12/19/2024 12:00 AM EDT) 12/19/2024 12/19/2024 Narrative [facility] - 12/25/2024 2:11 PM EDT CASE: [id number] PATIENT: TRAE RESTREPO Date: 1980 Sex: Female [facility] Department of Pathology [address] [place], [place] [address]IA License No.: [id number] Public Utilities Sales Representative: Dr. Reji Chang M.D., Ph.D. Physician: LONI HAYS MD Procedure Date: 12/19/2024 Resident: Cristal Boudreaux MD Pathologist: Timmy Newton MD PATHOLOGIC DIAGNOSIS: A. SKIN, RIGHT GROIN, SHAVE BIOPSY: Skin with reactive changes (hidradenitis deroofing). CLINICAL DATA: History: Hidradenitis suppurativa Operation: Shave biopsy Clinical Diagnosis: See Above TISSUE SUBMITTED: A/1. Right groin GROSS DESCRIPTION: The specimen is received in formalin, labeled with the patient's name, medical record number and Right groin , and consists of an irregular biggs skin shave (3.0 x 0.9 x <0.1 cm). The epithelial surface is grossly unremarkable except for the presence of a (0.1 x 0.1 cm) defect. The specimen is inked blue, serially sectioned, and entirely submitted. A1: 2 fragments. Dictated by: Beatriz Fox By his/her signature below, the senior physician certifies that he/she personally conducted a microscopic examination ( gross only exam if so stated) of the described specimen(s) and rendered or confirmed the diagnosis(es) related thereto. Final Diagnosis by Timmy Newton MD, Electronically signed on Wednesday December 25, 2024 at 02:10:53PM us Loni Hays MD PATHOLOGY ORDERABLES Claire mendoza Result Performing Organization Address City/State/[facility] Co de Phone Number [facility] [address] [place] [phone] from Last 3 Months Insurance [facility] [place] [employer] COMMERCIAL [facility] COMMERCIAL MD JENNIFER [id number] [place] [facility] [place] [facility] COMMERCIAL MD JENNIFER [id number] [facility] COMMER[facility] Fit&Color [facility] COMMERCIAL Care Teams Therapeutic Recreation Assistant Relationship Specialty Start Date End Date Demetrius Roberto MD [address] [place] [address] PCP - General Internal Medicine 10/02/24 Additional Source Comments The information contained in this document represents components of the legal health record. It is not the complete legal health record.[facility]
--- OUTSIDE RECORDS SUMMARY | 2025-03-15 09:22 | XMS_ITS | Encounter Summary ---
Author Organization [facility], Address [address] [place] [address] Phone Care Team Providers Care Rustic Terrazzo Setter Name Role Phone Demetrius Roberto MD Primary Care Provider Encounter Details Date Type Department Care Team (Late st Contact Info) Description 03/22/2024 Documentation Only [facility], [address] [place] [address] [place] [address] [place] [phone] Social History Tobacco Use Types Packs/Day [...] Visit [facility] [address] [place] [phone] Umberto Hood MD [address] [place] [phone] documented as of this encounter Visit Diagnoses Not on filedocumented in this encounter Care Teams Rustic Terrazzo Setter Relationship Specialty Start Date End Date Demetrius Roberto MD [address] [place] [address] PCP - [facility] 10/04/24 documented as of this encounter
--- OUTSIDE RECORDS SUMMARY | 2025-03-15 09:23 | XMS_ITS | Encounter Summary ---
Author Organization [facility], Address [address] [place] [address] Phone Care Team Providers Care Digital Controls Technical Officer Name Role Phone Demetrius Roberto MD Primary Care Provider Encounter Details Date Type Department Care Team (Late st Contact Info) Description 11/16/2021 Documentation Only [facility], [address] [place] [phone] Dakota Sim DO [address] [facility] [place] [place] [phone] Social History Tobacco Use Types Packs/Day Years [...] Visit [facility] [address] [place] [phone] Umberto Hood MD [address] [place] [place] [address] documented as of this encounter Visit Diagnoses Not on filedocumented in this encounter Care Teams Digital Controls Technical Officer Relationship Specialty Start Date End Date Demetrius Roberto MD [address] [place] [address] PCP - [facility] 10/04/24 documented as of this encounter
--- OUTSIDE RECORDS SUMMARY | 2025-03-15 09:23 | XMS_ITS | Encounter Summary ---
Author Organization [facility] Address [address] [place] [address] Phone Care Team Providers Care Wilton Weaver Name Role Phone Indu Cook MD Unavailable [phone] Brittanie Coy MD Unavailable [phone] rSi Sahni DO Primary Car e Provider Pcp, Unknown Primary Care Provider Unavailjudy e Demetrius Roberto MD Primary Care Provider Encounter Details Date Type Department Care Team (Late Contact Info) Description 05/05/2017 Procedure Pass [facility] [address] [place] [address] Social History Tobacco Use Types Packs/Day Years [...] Encounters Date Type Department Care Team (Late Contact Info) Description 04/03/2025 1:00 PM EDT Office Visit [facility] Main [place] [address] [place] [address] Ana Retana MD [address] [place] [address] [email or web address] 05/01/2025 1:15 PM EDT Office Visit [facility] [address] [facility] 1st [place] [address] Mar Hays MD [address] [place] [address] [email or web address] documented as of this encounter Visit Diagnoses Not on filedocumented in this encounter Care Teams Wilton Weaver Relationship Specialty Start Date End Date Sri Sahni DO [address] [place] [address] PCP - General Internal Medicine 12/08/16 04/10/24 Pcp, Unknown PCP - General 04/11/24 10/01/24 Demetrius Roberto MD [address] [place] [address] PCP - General Internal Medicine 10/02/24 Indu Cook MD [address] [place] [address] Endocrinology, [place] [address] Historical LMR Provider 11/17/14 07/12/21 Brittanie Coy MD [address] [place] [address] 100[address] [place] [address] [email or web address] Historical LMR Provider 11/17/14 07/12/21 documented as of this encounter Additional Source Comments The information contained in this document represents components of the legal health record. It is not the complete legal health record.[facility]
--- OUTSIDE RECORDS SUMMARY | 2025-03-15 09:23 | XMS_ITS | Encounter Summary ---
Author Organization [facility], Address [address] [place] [address] Phone Care Team Providers Care Branch Office Manager Name Role Phone Demetrius Roberto MD Primary Care Provider Encounter Details Date Type Department Care Team (Late st Contact Info) Description 01/21/2023 Documentation Only [facility], [address] [place] [phone] Jani Dent PA [address] [place] [address] [place] [phone] Social History Tobacco Use Types Packs/Day Years [...] Visit [facility] [address] [place] [phone] Umberto Hood MD [address] [facility] [place] [phone] documented as of this encounter Visit Diagnoses Not on filedocumented in this encounter Care Teams Branch Office Manager Relationship Specialty Start Date End Date Demetrius Roberto MD [address] [place] [address] PCP - [facility] 10/04/24 documented as of this encounter
--- OUTSIDE RECORDS SUMMARY | 2025-03-15 09:23 | XMS_ITS | Encounter Summary ---
Author Organization [facility], Address [address] [place] [address] Phone Care Team Providers Care Supervisor Grinding Name Role Phone Demetrius Roberto MD Primary Care Provider Encounter Details Date Type Department Care Team (Late st Contact Info) Description 03/09/2025 Office Communication [facility], [address] [place] [address] Debby Mak [address] [place] [address] Social History Tobacco Use Types Packs/Day [...] on file documented as of this encounter Miscellaneous Notes * Telephone Encounter - Meri Schmid RN - 03/14/2025 10:19 AM EDT REFERRAL FOR IV IRON On 03/06/25 Tsats 8, Ferritin 22, Hgb 11.3. Please obtain orders for IV iron. Depending on insurance coverage, medication dosage per protocol will be: FEREHEME 510 mg: []1 dose [x]2 doses OR VENOFER 300 mg: []2 doses VENOFER 200 mg: [x]5 doses Thank you documented in this encounter Plan of Treatment Upcoming Encounters Date Type Department Care Team (Late st Contact Info) Description 06/01/2025 9:15 AM EST Office Visit [facility] [address] [place] [phone] Umberto Hood MD [address] [place] [address] [place] [phone] documented as of this encounter Visit Diagnoses Not on filedocumented in this encounter Care Teams Supervisor Grinding Relationship Specialty Start Date End Date Demetrius Roberto MD [address] [place] [address] PCP - [facility] 10/04/24 documented as of this encounter
--- OUTSIDE RECORDS SUMMARY | 2025-03-15 09:23 | XMS_ITS | Encounter Summary ---
Author Organization [facility], Address [address] [place] [address] Phone Care Team Providers Care Intelligence Director Name Role Phone Demetrius Roberto MD Primary Care Provider [phone] Encounter Details Date Type Department Care Team (Late st Contact Info) Description 05/31/2023 Documentation Only [facility], [address] [place] [phone] Umberto Hood MD [address] [place] [address] [place] [phone] Social History Tobacco Use Types Packs/Day Years [...] Visit [facility] [address] [place] [phone] Umberto Hood MD [address] [place] [address] [place] [address] documented as of this encounter Visit Diagnoses Not on filedocumented in this encounter Care Teams Intelligence Director Relationship Specialty Start Date End Date Demetrius Roberto MD [address] [place] [address] PCP - [facility] 10/04/24 documented as of this encounter
--- OUTSIDE RECORDS SUMMARY | 2025-03-15 09:23 | XMS_ITS | Encounter Summary ---
Author Organization [facility], Address [address] [place] [address] Phone Care Team Providers Care Tile Mechanic Name Role Phone Demetrius Roberto MD Primary Care Provider Reason for Visit * Reason Comments Med Refill Encounter Details Date Type Department Care Team (Late st Contact Info) Description 04/27/2022 Refill [facility] [address] [place] [address] Jani Dent PA [address] [place] [address] [place] [phone] Social History Tobacco Use Types Packs/Day Years [...] Visit [facility] [address] [phone] Umberto Hood MD [address] [place] [address] [place] [address] documented as of this encounter Visit Diagnoses Not on filedocumented in this encounter Care Teams Tile Mechanic Relationship Specialty Start Date End Date Demetrius Roberto MD [address] [place] [address] PCP - [facility] 10/04/24 documented as of this encounter
--- OUTSIDE RECORDS SUMMARY | 2025-03-15 09:23 | XMS_ITS | Clinical Summary ---
Author Organization [facility], Address [address] [place] [address] [place] [address] Phone Care Team Providers Care Instrument And Control Service Person Name Role Phone Demetrius Roberto MD Primary [...] mg by mouth every night 9 Active sertraline (ZOLOFT) 100 MG tablet TAKE 1 TABLET BY MOUTH EVERYDAY AT BEDTIME AND STOP PREVIOUS SERTRALINE 0 Active HYDROcodone-Bill taminophen (VICODIN PO) Take by mouth Act vasquez pramipexole (MIRAPEX) 0.125 MG tablet Take 0.125 mg by mouth in the morning and 0.125 mg in the evening and 0.125 mg before bedtime. prn. Active pantoprazole (PROTONIX) 40 MG EC tablet 40 mg 1 (one) time each day before breakfast prn 4 Active mycophenolate (CELLCEPT) 500 MG tablet Take 3 tablets (1,500 mg total) by mouth in the morning and 3 tablets (1,500 mg total) in the evening. 180 tablet 10 4 Active ezetimibe (ZETIA) 10 MG tablet Take 10 mg by mouth 1 (one) time each day Active Active Problems Problem Noted Date Diagnosed [...] 03/07/2021 Rheumatoid arthritis 07/10/2014 021 Overview (08/15/2019): Sees in [place] women Osteoporosis 07/10/2014 03/07/2021 Encounters Date Type Department Care Team Description 03/13/2025 Documentation Only [facility], [address] [place] [address] Debby Mak 03/09/2025 Office Communication [facility] [address] [place] [address] Debby Mak 03/09/2025 Telephone [facility] [address] [place] [address] Carlee Arndt MA 03/08/2025 3:45 PM EDT Office Visit [facility] [address] [place] [address] Umberto Hood MD History of renal transplant (Primary Dx); History of immunosuppressive therapy; Stage 3a chronic kidney disease (HCC); Other iron deficiency anemia 01/31/2025 Orders Only [facility] [address] [place] [address] Carlee Arndt MA History of renal transplant (Primary Dx); History of immunosuppressive therapy; Stage 3b chronic kidney disease (HCC); Vitamin D deficiency, not otherwise specified; Idiopathic gout, not otherwise specified; Hyperlipidemia, not otherwise specified; Hypomagnesemia; Other iron deficiency anemia; Other specified hypoparathyroidism (HCC); Albuminuria, not otherwise specified 01/22/2025 Telephone [facility] [address] [place] [address] Carlee Arndt MA from Last 3 Months Immunizations Immunization Administration Dates Next Due H1N1 Inj 11/30/2009 [...] Sign Reading Time Taken Comments Blood Pressure 98/50 12/08/2024 9:15 AM EDT Pulse 69 11/30/2023 11:41 AM EDT Temperature 36.8 C (98.2 F) 11/30/2023 11:41 AM EDT Respiratory Rate 16 01/24/2018 12:00 PM EDT Oxygen Saturation 99% 11/30/2023 11:41 AM EDT Inhaled Oxygen Concentration - - Weight 59 kg (130 lb) 12/08/2024 9:15 AM EDT Height 160 cm (5' 3 ) 06/09/2024 9:32 AM EST Body Mass Index 23.03 06/09/2024 9:32 AM EST Plan of Treatment Upcoming Encounters Date Type Department Care Team (Late st Contact Info) Description 06/01/2025 9:15 AM EST Office Visit [facility] [address] [place] [address] Umberto Hood MD [address] [place] [address] [place] [phone] Health Maintenance Due Date Last Done Comments Hepatitis B Vaccine (1 of 3 - 19+ 3-dose series) 2001 05/27/2016, 12/26/2015, 11/28/2015, Additional history exists Pneumococcal Vaccine: Peds ( 0 to 5 Years) and At-Risk Patients (6 to 49 Years) (3 of 3 - PCV) 08/01/2013 08/01/2012, 11/30/2009 Influenza Vaccine (#1) 2025 1, 04/10/2020, 03/20/2017, Additional history exists Pneumococcal Vaccine: 50+ Years Discontinued 3, 11/30/2009 Procedures Procedure Name Priority Date/Time Associated Diagnosis Comments URINALYSIS, COMPLETE Routine 03/06/2025 12:38 PM EDT History of renal transplant History of immunosuppressive therapy Stage 3b chronic kidney disease (HCC) Vitamin D deficiency, not otherwise specified Idiopathic gout, not otherwise specified Hyperlipidemia, not otherwise specified Hypomagnesemia Other iron deficiency anemia Other specified hypoparathyroidism (HCC) Albuminuria, not otherwise specified URINE ALBUMIN / CREATININE RATIO Routine 03/06/2025 12:38 PM EDT History of renal transplant History of immunosuppressive therapy Stage 3b chronic kidney disease (HCC) Vitamin D deficiency, not otherwise specified Idiopathic gout, not otherwise specified Hyperlipidemia, not otherwise specified Hypomagnesemia Other iron deficiency anemia Other specified hypoparathyroidism (HCC) Albuminuria, not otherwise specified CREATINE KINASE Routine 03/06/2025 12:38 PM EDT History of renal transplant History of immunosuppressive therapy Stage 3b chronic kidney disease (HCC) Vitamin D deficiency, not otherwise specified Idiopathic gout, not otherwise specified Hyperlipidemia, not otherwise specified Hypomagnesemia Other iron deficiency anemia Other specified hypoparathyroidism (HCC) Albuminuria, not otherwise specified AST Routine 03/06/2025 12:38 PM EDT History of renal transplant History of immunosuppressive therapy Stage 3b chronic kidney disease (HCC) Vitamin D deficiency, not otherwise specified Idiopathic gout, not otherwise specified Hyperlipidemia, not otherwise specified Hypomagnesemia Other iron deficiency anemia Other specified hypoparathyroidism (HCC) Albuminuria, not otherwise specified ALT Routine 03/06/2025 12:38 PM EDT History of renal transplant History of immunosuppressive therapy Stage 3b chronic kidney disease (HCC) Vitamin D deficiency, not otherwise specified Idiopathic gout, not otherwise specified Hyperlipidemia, not otherwise specified Hypomagnesemia Other iron deficiency anemia Other specified hypoparathyroidism (HCC) Albuminuria, not otherwise specified PTH, INTACT Routine 03/06/2025 12:38 PM EDT History of renal transplant History of immunosuppressive therapy Stage 3b chronic kidney disease (HCC) Vitamin D deficiency, not otherwise specified Idiopathic gout, not otherwise specified Hyperlipidemia, not otherwise specified Hypomagnesemia Other iron deficiency anemia Other specified hypoparathyroidism (HCC) Albuminuria, not otherwise specified IRON PANEL (FE, TIBC, TSAT) Routine 03/06/2025 12:38 PM EDT History of renal transplant History of immunosuppressive therapy Stage 3b chronic kidney disease (HCC) Vitamin D deficiency, not otherwise specified Idiopathic gout, not otherwise specified Hyperlipidemia, not otherwise specified Hypomagnesemia Other iron deficiency anemia Other specified hypoparathyroidism (HCC) Albuminuria, not otherwise specified FERRITIN Routine 03/06/2025 12:38 PM EDT History of renal transplant History of immunosuppressive therapy Stage 3b chronic kidney disease (HCC) Vitamin D deficiency, not otherwise specified Idiopathic gout, not otherwise specified Hyperlipidemia, not otherwise specified Hypomagnesemia Other iron deficiency anemia Other specified hypoparathyroidism (HCC) Albuminuria, not otherwise specified MAGNESIUM Routine 03/06/2025 12:38 PM EDT History of renal transplant History of immunosuppressive therapy Stage 3b chronic kidney disease (HCC) Vitamin D deficiency, not otherwise specified Idiopathic gout, not otherwise specified Hyperlipidemia, not otherwise specified Hypomagnesemia Other iron deficiency anemia Other specified hypoparathyroidism (HCC) Albuminuria, not otherwise specified LIPID PANEL Routine 03/06/2025 12:38 PM EDT History of renal transplant History of immunosuppressive therapy Stage 3b chronic kidney disease (HCC) Vitamin D deficiency, not otherwise specified Idiopathic gout, not otherwise specified Hyperlipidemia, not otherwise specified Hypomagnesemia Other iron deficiency anemia Other specified hypoparathyroidism (HCC) Albuminuria, not otherwise specified URIC ACID Routine 03/06/2025 12:38 PM EDT History of renal transplant History of immunosuppressive therapy Stage 3b chronic kidney disease (HCC) Vitamin D deficiency, not otherwise specified Idiopathic gout, not otherwise specified Hyperlipidemia, not otherwise specified Hypomagnesemia Other iron deficiency anemia Other specified hypoparathyroidism (HCC) Albuminuria, not otherwise specified VITAMIN D 25 HYDROXY Routine 03/06/2025 12:38 PM EDT History of renal transplant History of immunosuppressive therapy Stage 3b chronic kidney disease (HCC) Vitamin D deficiency, not otherwise specified Idiopathic gout, not otherwise specified Hyperlipidemia, not otherwise specified Hypomagnesemia Other iron deficiency anemia Other specified hypoparathyroidism (HCC) Albuminuria, not otherwise specified CBC AND DIFFERENTIAL Routine 03/06/2025 12:38 PM EDT History of renal transplant History of immunosuppressive therapy Stage 3b chronic kidney disease (HCC) Vitamin D deficiency, not otherwise specified Idiopathic gout, not otherwise specified Hyperlipidemia, not otherwise specified Hypomagnesemia Other iron deficiency anemia Other specified hypoparathyroidism (HCC) Albuminuria, not otherwise specified RENAL FUNCTION PANEL Routine 03/06/2025 12:38 PM EDT History of renal transplant History of immunosuppressive therapy Stage 3b chronic kidney disease (HCC) Vitamin D deficiency, not otherwise specified Idiopathic gout, not otherwise specified Hyperlipidemia, not otherwise specified Hypomagnesemia Other iron deficiency anemia Other specified hypoparathyroidism (HCC) Albuminuria, not otherwise specified MYCOPHENOLIC ACID AND METABO. Routine 03/06/2025 12:38 PM EDT History of renal transplant History of immunosuppressive therapy Stage 3b chronic kidney disease (HCC) Vitamin D deficiency, not otherwise specified Idiopathic gout, not otherwise specified Hyperlipidemia, not otherwise specified Hypomagnesemia Other iron deficiency anemia Other specified hypoparathyroidism (HCC) Albuminuria, not otherwise specified MICROSCOPIC EXAMINATION - DO NOT USE Routine 03/06/2025 12:38 PM EDT from Last 3 Months Results * Urinalysis, Complete w/reflex to Culture (03/06/2025 12:38 PM EDT) Specific [place], Urine 1.018 1.005 - 1.030 [facility] pH Urine 6.0 5.0 - 7.5 [facility] Color, Urine Yellow Yellow [facility] Appearance Urine Clear Clear [facility] WBC Esterase Urine Negative Negative [facility] Protein, Ur Trace Negative/Tra ce [facility] Glucose, Ur Negative Negative [facility] Ketones, Urine Negative Negative [facility] [phone] Blood Urine Negative Negative [facility] [phone] Bilirubin Urine Negative Negative [facility] [phone] Urobilinogen Urine 0.2 0.2 - 1.0 mg/dL [facility] [phone] Nitrite, Urine Negative Negative [facility] [phone] Microscopic Examination Comment [facility] [phone] Comment:Microscopic follows if indicated. Other Microsc. Observations See below: [facility] [phone] Comment:Microscopic was gisell cated and was performed. URINALYSIS REFLEX Comment [facility] [phone] Comment:This specimen will n ot reflex to a Urine Culture. Urine Urine specimen obtained by clean catch procedure / Unknown 03/06/2025 12:38 PM EDT 03/06/2025 Umberto Hood MD LAB URINE ORDERABLES Final Result [facility] [address] [place] [address] * (ABNORMAL) Mycophenolic Acid and Metabo. (03/06/2025 12:38 PM EDT) Mycophenolic Acid 1.5 1.0 - 3.5 ug/mL [facility] Mycophenolic Acid Glucuronide 34(L) 35 - 100 ug/mL [facility] Blood Venous blood / Unknown 03/06/2025 12:38 PM EDT 03/06/2025 Narrative [facility] - 03/09/2025 12:06 PM EDT Test(s) 372210-Zgilplupwaae Acid; 063966- Mycophenolic Acid Glucuronide was developed and its performance characteristics determined by [facility]. It has not been cleared or approved by the Food and Drug Administration. Umberto Hood MD LAB BLOOD ORDERABLES Final Result [facility] [address] [place] [address] * Microscopic Examination (03/06/2025 12:38 PM EDT) WBC, Urine None seen 0 - 5 /hpf [facility] RBC, Urine None seen 0 - 2 /hpf [facility] Squamous Epithelial, Urine 0-10 0 - 10 /hpf [facility] Casts None seen None seen /lpf [facility] Bacteria, Urine None seen None seen/Few [facility] 03/06/2025 12:3 8 PM EDT 03/06/2025 Umberto Hood MD LAB MICROBIOLOGY - GENERAL ORDERABLES Final Result [facility] [address] [place] [address] * (ABNORMAL) Iron Panel (Fe, TIBC, TSAT) (03/06/2025 12:38 PM EDT) TIBC 433 250 - 450 ug/dL [facility] UIBC 400 131 - 425 ug/dL [facility] Iron 33 27 - 159 ug/dL [facility] Iron Saturation (TSat) 8(LL) 15 - 55 % [facility] Blood Venous blood / Unknown 03/06/2025 12:38 PM EDT 03/06/2025 Umberto Hood MD LAB BLOOD ORDERABLES Final Result [facility] [address] [place] [address] * (ABNORMAL) Urine Albumin / Creatinine Ratio (03/06/2025 12:38 PM EDT) Creatinine, Ur 71.3 Not Estab. mg/dL [facility] Albumin, Urine 51.9 Not Estab. ug/mL [facility] Albumin/Creatin ine Ratio 73(H) 0 - 29 mg/g creat [facility] Comment: Normal: 0 - 29 Moderately increased: 30 - 300 Severely increased: >300 Urine Urine specimen obtained by clean catch procedure / Unknown 03/06/2025 12:38 PM EDT 03/06/2025 Umberto Hood MD LAB URINE ORDERABLES Final Result Performing Organization Address [facility] de Phone Number [facility] [address] [place] [address] * Vitamin D 25 Hydroxy (03/06/2025 12:38 PM EDT) Vitamin D, 25-OH, Total 36.4 30.0 - 100.0 ng/mL [facility] Comment: Vitamin D deficiency has been defined by the [place] of Medicine and an Endocrine Society practice guideline as a level of serum 25-OH vitamin D less than 20 ng/mL (1,2). The Endocrine Society went on to further define vitamin D insufficiency as a level between 21 and 29 ng/mL (2). 1. IOM ([place] of Medicine). 2010. Dietary reference intakes for calcium and D. [place]: The National Academies Press. 2. Tonny GALLOWAY, Gurdeep LAY, Nicolle SERRANO, et al. Evaluation, treatment, and prevention of vitamin D deficiency: an Endocrine Society clinical practice guideline. JCEM. 2010; 96(7):1911-30. Blood Venous blood / Unknown 03/06/2025 12:38 PM EDT 03/06/2025 Umberto Hood MD LAB BLOOD ORDERABLES Final Result [facility] [address] [place] [address] * (ABNORMAL) CBC and Differential (03/06/2025 12:38 PM EDT) WBC 11.3(H) 3.4 - 10.8 x10E3/uL [facility] RBC 3.93 3.77 - 5.28 x10E6/uL [facility] Hemoglobin 11.3 11.1 - 15.9 g/dL [facility] Hematocrit 35.9 34.0 - 46.6 % [facility] MCV 91 79 - 97 fL [facility] MCH 28.8 26.6 - 33.0 pg [facility] MCHC 31.5 31.5 - 35.7 g/dL [facility] RDW 13.1 11.7 - 15.4 % [facility] Platelets 358 150 - 450 x10E3/uL [facility] Neutrophils Relative 76 Not Estab. % [facility] Lymphocytes Relative 16 Not Estab. % [facility] Monocytes 7 Not Estab. % [facility] Eosinophils Relative 0 Not Estab. % [facility] Basophils Relative 0 Not Estab. % [facility] Neutrophils Absolute 8.6(H) 1.4 - 7.0 x10E3/uL [facility] Lymphocytes Absolute 1.9 0.7 - 3.1 x10E3/uL [facility] Monocytes Absolute 0.8 0.1 - 0.9 x10E3/uL [facility] Eosinophils Absolute 0.0 0.0 - 0.4 x10E3/uL [facility] Basophils Absolute 0.0 0.0 - 0.2 x10E3/uL [facility] Immature Granulocytes 1 Not Estab. % [facility] Immature Grans (Absolute) 0.1 0.0 - 0.1 x10E3/uL [facility] Blood Venous blood / Unknown 03/06/2025 12:38 PM EDT 03/06/2025 Umberto Hood MD LAB BLOOD ORDERABLES Final Result [facility] [address] [place] [address] * Uric Acid (03/06/2025 12:38 PM EDT) Uric Acid 4.7 2.6 - 6.2 mg/dL [facility] Comment:Therapeutic target f or gout patients: <6.0 Blood Venous blood / Unknown 03/06/2025 12:38 PM EDT 03/06/2025 Umberto Hood MD LAB BLOOD ORDERABLES Final Result [facility] [address] [place] [address] * ALT (03/06/2025 12:38 PM EDT) ALT (SGPT) 13 0 - 32 IU/L [facility] Blood Venous blood / Unknown 03/06/2025 12:38 PM EDT 03/06/2025 Umberto Hood MD LAB BLOOD ORDERABLES Final Result [facility] [address] [place] [address] * AST (03/06/2025 12:38 PM EDT) AST (SGOT) 21 0 - 40 IU/L [facility] Blood Venous blood / Unknown 03/06/2025 12:38 PM EDT 03/06/2025 Umberto Hood MD LAB BLOOD ORDERABLES Final Result Performing Organization Address City/[facility]/ZIP Co de Phone Number [facility] [address] [place] [address] * PTH, Intact (03/06/2025 12:38 PM EDT) PTH 35 15 - 65 pg/mL [facility] Blood Venous blood / Unknown 03/06/2025 12:38 PM EDT 03/06/2025 Result [facility] Umberto Hood MD LAB BLOOD ORDERABLES Final Result [facility] [address] [place] [address] * Magnesium (03/06/2025 12:38 PM EDT) Magnesium 2.1 1.6 - 2.3 mg/dL [facility] Blood Venous blood / Unknown 03/06/2025 12:38 PM EDT 03/06/2025 Umberto Hood MD LAB BLOOD ORDERABLES Final Result [facility] [address] [place] [address] * Ferritin (03/06/2025 12:38 PM EDT) Ferritin 22 15 - 150 ng/mL [facility] Blood Venous blood / Unknown 03/06/2025 12:38 PM EDT 03/06/2025 Umberto Hood MD LAB BLOOD ORDERABLES Final Result Performing Organization Address City/[facility]/ZIP Co de Phone Number [facility] [address] [place] [address] * (ABNORMAL) CK (03/06/2025 12:38 PM EDT) Creatine Kinase (CK/CPK) 205(H) 32 - 182 U/L [facility] Blood Venous blood / Unknown 03/06/2025 12:38 PM EDT 03/06/2025 Umberto Hood MD LAB BLOOD ORDERABLES Final Result Performing Organization Address City/[facility]/ZIP Co de Phone Number [facility] [address] [place] [address] * (ABNORMAL) Renal Function Panel (03/06/2025 12:38 PM EDT) Glucose 74 70 - 99 mg/dL [facility] BUN 20 6 - 24 mg/dL [facility] Creatinine 1.21(H) 0.57 - 1.00 mg/dL [facility] eGFR CKD-EPI CR 2020 57(L) >59 mL/min/1.7 3 [facility] BUN/Creatinine Ratio 17 9 - 23 [facility] Sodium 139 134 - 144 mmol/L [facility] Potassium 5.1 3.5 - 5.2 mmol/L [facility] Chloride 104 96 - 106 mmol/L [facility] Bicarbonate (CO2) 19(L) 20 - 29 mmol/L [facility] Calcium 9.9 8.7 - 10.2 mg/dL [facility] Phosphorus 3.1 3.0 - 4.3 mg/dL [facility] Albumin 4.3 3.9 - 4.9 g/dL [facility] Blood Venous blood / Unknown 03/06/2025 12:38 PM EDT 03/06/2025 Umberto Hood MD LAB BLOOD ORDERABLES Final Result [facility] [address] [place] [address] * Lipid panel (03/06/2025 12:38 PM EDT) Cholesterol 173 100 - 199 mg/dL [facility] Triglycerides 113 0 - 149 mg/dL [facility] HDL 58 >39 mg/dL [facility] VLDL Cholesterol Hang 20 5 - 40 mg/dL [facility] LDL Calculated 95 0 - 99 mg/dL [facility] Blood Venous blood / Unknown 03/06/2025 12:38 PM EDT 03/06/2025 Umberto Hood MD LAB BLOOD ORDERABLES Final Result [facility] [address] [place] [address] from Last 3 Months Insurance Medicaid [place] Diversified Administration ([id number]) Care Teams Instrument And Control Service Person Relationship Specialty Start Date End Date Demetrius Roberto MD [address] [place] [phone] [facility] 10/04/24
--- OUTSIDE RECORDS SUMMARY | 2025-03-15 09:23 | XMS_ITS | Encounter Summary ---
Author Organization [facility], Address [address] [place] [address] Phone Care Team Providers Care Stock Plan Administrator Name Role Phone Demetrius Roberto MD Primary Care Provider Encounter Details Date Type Department Care Team (Late st Contact Info) Description 03/13/2025 Documentation Only [facility], [address] [place] [address] Debby Mak [address] [place] [address] Social History Tobacco Use Types [...] Visit [facility] [address] [place] [phone] Umberto Hood MD [address] [place] [address] documented as of this encounter Visit Diagnoses Not on filedocumented in this encounter Care Teams Stock Plan Administrator Relationship Specialty Start Date End Date Demetrius Roberto MD [address] [place] [address] PCP - [facility] 10/04/24 documented as of this encounter
--- OUTSIDE RECORDS SUMMARY | 2025-03-15 09:23 | XMS_ITS | Encounter Summary ---
Author Organization [facility] [place], Address [address] [place] [address] Phone Care Team Providers Care Manager Beauty Name Role Phone Demetrius Roberto MD Primary Care Provider Reason for Visit * Reason Comments Med Change Request Encounter Details Date Type Department Care Team (Late st Contact Info) Description 04/23/2023 Refill [facility], [address] [place] [place] [phone] Umberto Hood MD [address] [place] [address] [place] [phone] Social History Tobacco Use Types Packs/Day Years [...] Visit [facility] [address] [place] [phone] Umberto Hood MD [address] [place] [address] [place] [address] documented as of this encounter Visit Diagnoses Not on filedocumented in this encounter Care Teams Manager Beauty Relationship Specialty Start Date End Date Demetrius Roberto MD [address] [place] [address] PCP - [facility] 10/04/24 documented as of this encounter
--- OUTSIDE RECORDS SUMMARY | 2025-03-15 09:23 | XMS_ITS | Encounter Summary ---
Author Organization [facility] Address [address] [place] [address] Phone Care Team Providers Care Gunner'S Mate M Name Role Phone Indu Cook MD Unavailable [phone] Brittanie Coy MD Unavailable [phone] Sri Sahni DO Primary Car e Provider Pcp, Unknown Primary Care Provider Unavailjudy e Demetrius Roberto MD Primary Care Provider Encounter Details Date Type Department Care Team (Late Contact Info) Description 04/05/2019 Procedure Pass BWF Periop 6th floor [address] [place] [address] Social History Tobacco Use Types Packs/Day Years [...] Upcoming Encounters Date Type Department Care Team ([facility] Contact Info) Description 04/03/2025 1:00 PM EDT Office Visit [facility] [place] [address] [place] [address] Ana Retana MD [address] [place] [address] [email or web address] 05/01/2025 1:15 PM EDT Office Visit [facility] [address] 1[address] [place] [address] Mar Hays MD [address] [place] [address] [email or web address] documented as of this encounter Visit Diagnoses Not on filedocumented in this encounter Care Teams Gunner'S Mate M Relationship Specialty Start Date End Date Sri Sahni DO [address] [place] [address] PCP - General Internal Medicine 12/08/16 04/10/24 Pcp, Unknown PCP - General 04/11/24 10/01/24 Demetrius Roberto MD [address] [place] [address] PCP - General Internal Medicine 10/02/24 Indu Cook MD [address] [place] [address] Endocrinology, [place] [address] Historical LMR Provider 11/17/14 07/12/21 Brittanie Coy MD [address] [place] [address] [address] [place] [address] [email or web address] Historical LMR Provider 11/17/14 07/12/21 documented as of this encounter Additional Source Comments The information contained in this document represents components of the legal health record. It is not the complete legal health record.[facility]
--- OUTSIDE RECORDS SUMMARY | 2025-03-15 09:23 | XMS_ITS | Clinical Summary ---
Author Organization [address] Address [address] [place] [phone] Phone Care Team Providers Care Charge Preparation Technician Name Role Phone Demetrius Roberto MD Primary Care Provider [phone] Allergies Active Allergy Reactions Criticality Noted Date Comments Cyclosporine Other High 09/28/2014 Per Pt. almost Damaged transplanted kidney. Doxycycline Nausea And Vomiting,Nausea Only High 01/06/2011 Fd And C Red No. 3 Itching 03/21/2015 Hydromorphone Itching,Rash Low 01/06/2011 Nsaids (Non-Steroidal Anti-Inflammatory Drug) Other 01/06/2011 Kidney transplant unable b/c one kidney Other Other 07/10/2014 BenzylAlc-prochlorpe razine-saccharin- Tardive dyskinesia Oxycodone-Acetaminophen 03/13/2015 Allergic to some synthetic dye causing itching Prochlorperazine Other 07/10/2014 Tardive dyskinesia Tacrolimus 2023 Quetiapine High 07/25/2019 Anxiety,insomnia Simvastatin Itching,Rash High 09/28/2014 Other reaction(s): Rash/Dermatitis Sulfamethoxazole-Trimetho prim 07/10/2014 Don't remember, went to ER, Tapentadol Other 07/10/2014 Pt. Cant remember reaction Diazepam 2023 Medications sertraline (ZOLOFT) 100 mg tablet TAKE 1 TABLET BY MOUTH EVERYDAY AT BEDTIME AND STOP PREVIOUS SERTRALINE 0 Active clonazePAM (KlonoPIN) 1 mg tablet 9 Active HYDROcodone-ac etaminophen (HYCET) 7.5-325 mg/15 mL solution Take 5-325 mg by mouth. Active mycophenolate (CELLCEPT) 500 mg tablet Take 3 tablets (1,500 mg total) by mouth 2 (two) times a day. 1 Active famotidine (PEPCID) 20 mg tablet TAKE 1 TABLET BY MOUTH 2 TIMES DAILY NEEDED FOR HEARTBURN. TAKE AT LEAST ONE DOSE AT BEDTIME 180 tablet 3 4 Active riboflavin (VITAMIN B2) 400 mg tablet Take 1 tablet (400 mg total) by mouth 1 (one) time each day. 90 tablet 1 5 Active ezetimibe (ZETIA) 10 mg tablet Take 1 tablet (10 mg total) by mouth 1 (one) time each day. 90 tablet 1 5 Active lurasidone (Latuda) 20 mg tablet Take 1 tablet (20 mg total) by mouth 1 (one) time each day with breakfast. Active MAGNESIUM GLYCINATE ORAL Take 1 capsule by mouth 1 (one) time each day. Active lidocaine HCL 4 % cream Apply topically 4 (four) times a day if needed (pain). 15 g 5 Active clindamycin-be nzoyl peroxide (DUAC) 1.2-5% gel Apply topically 2 (two) times a day. 30 g 5 Active pantoprazole (PROTONIX) 40 mg EC tablet TAKE 1 TABLET BY MOUTH DAILY IN AM ON EMPTY STOMACH, WAIT 30 MINS AND THEN EAT TO ACTIVATE THE MED 90 tablet 5 Active SUMAtriptan (IMITREX) 50 mg tablet Take 1 tablet (50 mg total) by mouth 1 (one) time if needed for migraine. May repeat dose once in 2 hours if no relief. Do not exceed 2 doses in 24 hours. 9 tablet 1 5 Active SUMAtriptan (IMITREX) 50 mg tablet TAKE 1 TABLET BY MOUTH 1 TIME IF NEEDED FOR MIGRAINE. MAY REPEAT ONCE IN 2 HOURS IF NO RELIEF, MAX 2 DOSES/24 HOURS. 9 tablet 3 5 03/14/20 25 Discontinu ed(Reorder ) Active Problems Problem Noted Date Diagnosed Date Osteopenia 10/17/2024 Allergic rhinitis 01/11/2020 Allergic conjunctivitis of both eyes 01/11/2020 Hyperlipidemia 01/18/2017 CKD (chronic kidney disease) stage 3, GFR 30-59 ml/min ([facility] [place]24, [facility] V28) 01/18/2017 Chronic pain syndrome 08/20/2014 Gastroesophageal reflux disease 08/17/2014 Lupus nephritis ([facility] V24, [facility] V28) 07/10 Overview (2023): Dr. Jame Patricia - [facility] women Depression, major, in remission ([facility] V24) Anxiety and depression 07/10/2014 Rheumatoid arthritis ([facility] V24, [facility] V28) 07/10/2014 Overview (2023): Sees dr in [facility] Total knee replacement status 07/10/2014 Overview (2023): Bilateral, secondary to avascular necrosis Kidney transplant recipient 07/10/2014 Overview (2023): Supervisor Blood- Dr. Yeimi Mcnair 01/14/2000, mother is donor Secondary to lupus nephritis Compression fracture of lumb osacral spine ([facility] V24, [facility] V28) 07/10/2014 Overview (2023): Sees pain mangement PSS and gets percoet through them Osteoporosis 06/16/2012 Overview (2023): Osteoporosis SLE (systemic lupus erythema tosus) ([facility] V24, [facility] V28) 06/16/2012 Overview (2023): Systemic lupus erythematosus Encounters Date Type Department Care Team Description 03/14/2025 10:30 AM EDT Office Visit [facility] [address] [place] [address] Vj Rios PA Other migraine without status migrainosus, not intractable (Primary Dx); Iron deficiency 02/20/2025 2:20 PM EDT Office Visit Gastroenterology - [place] [address] [place] [address] Yecenia Goddard PA Abdominal bloating (Primary Dx); Gastroesophageal reflux disease, unspecified whether esophagitis present; Gastritis without bleeding, unspecified chronicity, unspecified gastritis type from Last 3 Months Immunizations Name Administration Dates Next Due H1N1 Inj 11/30/2009 Hepatitis B (Kyqejup-Q-Cmkwc , Recombivax HB-Adult) 19yo and older 05/27/2016,12/26/2015,11/28/2015 Hepatitis B Pediatric (Enger ix B; Recombivax HB) to less than 20 yo 11/28/2015 Influenza Quadravalent, 0.5m l (Fluzone High-dose) 65yo and older 04/18/2022,03/20/2017,03/05/2017 Influenza Quadravalent, MDCK , 0.5ml, with preservative (Flucelvax) 6mo and older 04/25/2021,04/10/2020,03/16/2017 Influenza trivalent, 0.5mL ( Fluzone High-dose) 65yo and older 03/11/2016 Influenza trivalent, 0.5mL, preservative free (Fluarix; FluLaval; Fluzone) ages 6mo and older (Afluria) 3 years and older 05/04/2014,03/21/2013,03/14/2012 Influenza trivalent, with pr eservative (Fluzone; Afluria) 6mo and older 04/21/2016,03/13/2015 Influenza, Unspecified 03/20/2017,03/05/2017 Influenza, live, intranasal, quadrivalent (FluMist) 2yo to less than 50yo 04/25/2021 Moderna SARS-CoV-2 COVID-19, mRNA, LNP-S, preservative free 11/01/2021,04/25/2021,08/30/2020 PPD Test 12/28/2014 Pfizer (age 5-11) Bivalent, COVID-19 06/30/2022 Pneumococcal polysaccharide 23 valent (Pneumovax 23) 2yo and older 08/01/2012,11/30/2009 SARS-COV-2 (COVID-19) Vaccine, Unspecified 07/24 Tdap Tetanus diptheria acell ular pertussis (Boostrix; Adacel) 7yo and older 12/28/2014,08/01/2012 Surgical History Surgery Date Site/Laterality Comments OTHER SURGICAL HISTORY 1999 PROCEDURE: NM RENAL ALTRNSPLJ IMPLTJ GRF W/O JOURNEYMAN WELDER NEPHRECTOMY CHOLECYSTECTOMY PROCEDURE: HISTORICAL CHOLECYSTECTOMY HERNIA REPAIR 01/17/2016 PROCEDURE: HISTORICAL HERNIA REPAIR/ING; COMMENT: [facility] [place] KNEE ARTHROPLASTY PROCEDURE: NM ARTHRP KNE CONDYLE&PLATU MEDIAL&LAT COMPARTMENTS; COMMENT: x two surgery bilaterl CARPAL TUNNEL RELEASE PROCEDURE: NM NEUROPLASTY &/TRANSPOS MEDIAN NRV CARPAL TUNNE OTHER SURGICAL HISTORY PROCEDURE: NM OPTX TIBIAL SHFT FX W/PLATE/SCREWS W/WO CERCLAGE Medical History Medical History Date Comments Chronic pain syndrome 08/20/2014 DX:Chronic pain syndrome SLE (systemic lupus erythema tosus) ([facility] V24, [facility] V28) DX:SLE (systemic lupus erythematosus) ([facility]); COMMENT: Dr Jame Rico ([facility]) Osteoporosis DX:Osteoporosis CKD (chronic kidney disease) stage 3, GFR 30-59 ml/min ([facility]24, [facility] V28) 01/18/2017 DX:CKD (chronic kidney disea se) stage 3, GFR 30-59 ml/min ([facility]) Anxiety disorder 07/10/2014 DX:Anxiety diso rder Avascular necrosis ([facility] V24, [facility] V28) 07/10/2014 DX:Avascular necrosis ([facility]) Compression fracture of lumb osacral spine ([facility] V24, [facility] V28) 07/10/2014 DX:Compression fractu re of lumbosacral spine ([facility]); COMMENT: Sees pain mangement PSS and gets percoet through them Depression, major, in remiss ion ([facility] V24) 07/10/2014 DX:Depression, major, in rem ission ([facility]) GERD (gastroesophageal reflux disease) 5 DX:GERD (gastroesophageal reflux disease) H/O kidney transplant 07/10/2014 DX:H/O kid brain transplant; COMMENT: Supervisor Blood- Dr. Yeimi Mcnair Lupus nephritis ([facility] V24 , [facility] V28) 07/10/2014 DX:Lupus nephritis ([facility]); CO MMENT: Dr. Jame Patricia - [facility] Rheumatoid arthritis [place] [place], [facility] V28) 07/10/2014 DX:Rheumatoid arthritis ([facility] ); COMMENT: Davy ernst in [facility] women Hyperlipidemia 01/18/2017 DX:Hyperlipidemi a Total knee replacement status 07/10/2014 DX :Total knee replacement status Tibia fracture 10/2017 DX:Tibia fractur e History of endoscopy 04/2019 DX:History of endoscopy; COMMENT: lance Epigastric pain DX:Epigastric pa in SLE (systemic lupus erythema tosus) ([facility] V24, [facility] V28) DX:SLE (systemic lupus erythematosus) ([facility]) History of knee replacement DX:H istory of knee replacement Gastritis DX:Gastritis Family History Medical History Relation Name Comments Hypertension Father She 50 Depression Mother Seizures Breast cancer Neg Hx Relation Name Status Comments Father Alive Mother Alive asthma, depress ion/anxiety, seizure Social History Tobacco Use Types Packs/Day Years Used Date Smoking Tobacco: Never Smokeless Tobacco: Never Tobacco Cessation:Counseling Given: Not Answered Alcohol Use Standard Drinks/Week Comments Not Asked 0 (1 standard drink = 0.6 oz pur e alcohol) Comments No Sex and Gender Information Value Date Recorded Sex Assigned at Not on file Legal Sex Female 3:10 PM EST Gender Identity Not on file Sexual Orientation Not on file Obstetrics History Last Filed Vital Signs Vital Sign Reading Time Taken Comments Blood Pressure 103/61 03/14/2025 10:29 AM EDT Pulse 73 03/14/2025 10:29 AM EDT Temperature 36.4 C (97.6 F) 03/14/2025 10:29 AM EDT Respiratory Rate 15 10/17/2024 12:56 PM EDT Oxygen Saturation 98% 03/14/2025 10:29 AM EDT Inhaled Oxygen Concentration - - Weight 59 kg (130 lb) 02/20/2025 2:21 PM EDT Height 160 cm (5' 3 ) 02/20/2025 2:21 PM EDT Body Mass Index 23.03 02/20/2025 2:21 PM EDT Plan of Treatment Upcoming Encounters Date Type Department Care Team (Late st Contact Info) Description 04/27/2025 8:00 AM EDT Appointment [facility] Nuclear Medicine [address] [place] [phone] 05/21/2025 8:30 AM EST Office Visit Adult Medicine [facility] [address] [place], [place] [phone] Demetrius Roberto MD [address] [place], [place] 06/13/2025 3:20 PM EST Office Visit Gastroenterology [facility] [address] [phone] Yecenia Goddard PA [address] [address] Health Maintenance Due Date Last Done Comments Pneumococcal Vaccine: Pediatrics (0 to 5 Years) and At-Risk Patients (6 to 49 Years) (3 of 3 - PCV) 08/01/2013 08/01/2012, 11/30/2009 HIV Screening 06/12/2022 Social Influencers of Health Screening 06/12/2022 Cervical Cancer Screening: Pap Smear 02/04/2024 02/03/2021 Depression Screening 07/05/2024 DTaP,Tdap,and Td Vaccines (3 - Td or Tdap) 12/28/2024 12/28/2014, 08/01/2012 COVID-19 Vaccine (7 - Moderna risk season) 2025 04/21/2024, 08/07/2023, 07/24/2022, Additional history exists Influenza Vaccine (#1) 2025 , 04/18/2022, 04/25/2021, Additional history exists Breast Cancer Screening 05/05/2025 05/05/2023, 04/17 Hypertension/CHF/CAD Annual BMP Blood Test 10/02/2025 10/02/2024, 03/16/2024, 03/16/2024, Additional history exists Cholesterol Screening (Lipid Panel) 03/06/2030 03/06/2025, 03/09/2024 Hepatitis B Vaccines Completed 05/27/2016, 12/26/2015, 11/28/2015, Additional history exists Hepatitis C Screening Completed 07/28/2023 HIB Vaccines Aged Out No longer eligi ble based on patient's age to complete this topic HPV Vaccines Aged Out No longer eligi ble based on patient's age to complete this topic Hepatitis A Vaccines Aged Out No long er eligible based on patient's age to complete this topic IPV Vaccines Aged Out No longer eligi ble based on patient's age to complete this topic MMR Vaccines Aged Out No longer eligi ble based on patient's age to complete this topic Meningococcal ACWY Vaccine Aged Out N o longer eligible based on patient's age to complete this topic Meningococcal B Vaccine Aged Out No l onger eligible based on patient's age to complete this topic RSV Immunization Patients Under 20 months Aged Out No longer eligible based on patient's age to complete this topic Varicella Vaccines Aged Out No longer eligible based on patient's age to complete this topic Procedures Procedure Name Priority Date/Time Associated Diagnosis Comments ANNUAL BMP BLOOD TEST Routine 03/16/2024 LIPID PANEL Routine 03/09/2024 HEPATITIS C SCREENING Routine 07/28/2023 DIAGNOSTIC MAMMOGRAPHY WITH CAD UNILATERAL Routine 05/05/2023 2:12 PM EDT Other abnormal and inconclusive findings on diagnostic imaging of breast PAP SMEAR Routine 02/03/2021 from Last 3 Months or Most Recently Relevant to Health Maintenance Results * Annual BMP Blood Test (03/16/2024) Annual BMP Blood Test abstracted us Historical Provider MD HEALTH MAINTENANCE Final Result * Lipid panel (03/09/2024) LDL/HDL Ratio 0 Triglycerides 0 mg/dL Cholesterol 0 mg/dL HDL 0 mg/dL LDL Cholesterol 0.0 mg/dL Blood Venous blood specimen / Unknown Historical Provider LAB BLOOD ORDERABLES Claire l Result * Hepatitis C Screening (07/28/2023) Hepatitis C Screening abstracted Historical Provider HEALTH MAINTENANCE Final Result * DIAGNOSTIC MAMMOGRAPHY WITH CAD UNILATERAL (05/05/2023 2:12 PM EDT) Anatomical Region Laterality Modality Mammography 04/19/2023 10:1 6 AM EDT Narrative 05/05/2023 2:29 PM EDT This is a summary report. The complete report is available in the patient's medical record. If you cannot access the medical record, please contact the sending organization for a detailed fax or copy. RIGHT DIGITAL DIAGNOSTIC 3D MAMMOGRAM HISTORY: Work-up for upper outer/axillary tail focal asymmetry TECHNIQUE: MLO spot compression, full-field ML CAD was used COMPARISON: Mammogram from 04/17/2023 FINDINGS: Right breast upper outer focal asymmetry/axillary tail focal asymmetry becomes equal in density on spot compression and is consistent with benign summation of fibroglandular tissue. Sonographic evaluation demonstrates no focal abnormality Density: C RIGHT BREAST TARGETED ULTRASOUND EVALUATION HISTORY: Work-up for upper outer/axillary tail focal asymmetry TECHNIQUE: Ultrasonographic examination is performed using a linear array transducer. Targeted right breast ultrasound was performed from 9:00 to 12:00 and axillary tail to evaluate area of mammographic concern. Real-time sonographic scanning was also performed by the radiologist. FINDINGS: From 9:00 to 12:00 and axillary tail, no sonographic evidence of malignancy or other focal abnormalities were identified at the right breast to correspond to area of mammographic concern. Impression: No sonographic or mammographic evidence of malignancy BI-RADS Category 2 benign findings Recommendation: Routine annual screening mammography is recommended Procedure Note Bertram Victoria MD - 08/10/2023 This is a summary report. The complete report is available in thepatient's medical record. If you cannot access the medical record, pleasecontact the sending organization for a detailed fax or copy. RIGHT DIGITAL DIAGNOSTIC 3D MAMMOGRAM HISTORY: Work-up for upper outer/axillary tail focal asymmetry TECHNIQUE: MLO spot compression, full-field ML CAD was used COMPARISON: Mammogram from 04/17/2023 FINDINGS: Right breast upper outer focal asymmetry/axillary tail focal asymmetrybecomes equal in density on spot compression and is consistent with benignsummation of fibroglandular tissue. Sonographic evaluation demonstratesno focal abnormality Density: C RIGHT BREAST TARGETED ULTRASOUND EVALUATION HISTORY: Work-up for upper outer/axillary tail focal asymmetry TECHNIQUE: Ultrasonographic examination is performed using a linear arraytransducer. Targeted right breast ultrasound was performed from 9:00 to12:00 and axillary tail to evaluate area of mammographic concern.Real-time sonographic scanning was also performed by the radiologist. FINDINGS: From 9:00 to 12:00 and axillary tail, no sonographic evidence ofmalignancy or other focal abnormalities were identified at the rightbreast to correspond to area of mammographic concern. Impression: No sonographic or mammographic evidence of malignancy BI-RADS Category 2 benign findings Recommendation: Routine annual screening mammography is recommended [facility] BI PROCEDURES Final Result * Pap Smear (02/03/2021) Pap smear abstracted; no interpretation Historical Provider HEALTH MAINTENANCE Final Result from Last 3 Months or Most Recently Relevant to Health Maintenance Insurance MEDICAID [place] [employer] Care Teams Charge Preparation Technician Relationship Specialty Start Date End Date Demetrius Roberto MD [address] [place] [address] PCP - General Internal Medicine 02/18/22
--- OUTSIDE RECORDS SUMMARY | 2025-03-15 09:23 | XMS_ITS ---
Author Name [facility] Organization Unknown Care Team Organization Name Specialty Phone Email Start Date End Da te [facility] Demetrius Roberto Primary Care 12/11/202202/02 [facility] Aida Platt Primary Care 05/12/2022 02/21/20
--- OUTSIDE RECORDS SUMMARY | 2025-03-15 09:23 | XMS_ITS | Encounter Summary ---
Author Organization [facility], Address [address] [place] [address] Phone Care Team Providers Care Advance Scout Name Role Phone Demetrius Roberto MD Primary Care Provider Reason for Visit * Reason Comments Med Refill Encounter Details Date Type Department Care Team (Late st Contact Info) Description 12/24/2020 Refill [facility] [address] [place] [address] Jani Dent PA [address] [place] [address] [place] [phone] Social History Tobacco Use Types Packs/Day Years [...] Visit [facility] [address] [phone] Umberto Hood MD [address] [place] [address] [place] [address] documented as of this encounter Visit Diagnoses Not on filedocumented in this encounter Care Teams Advance Scout Relationship Specialty Start Date End Date Demetrius Roberto MD [address] [place] [phone] PCP - [facility] 10/04/24 documented as of this encounter
--- OUTSIDE RECORDS SUMMARY | 2025-03-15 09:23 | XMS_ITS | Clinical Summary ---
Author Organization [facility] Address [address] [place] [address] Phone Care Team Providers Care Merchandising Intern Name Role Phone Group, [facility] briana Care Provider Group, [facility] Erlinda vailable Sri Sahni Unavailable [phone] Medications HYDROcodone-gonzález taminophen ([place]) 5-325 mg tablet tab, PO, Q6hr, Refills: 0, Entered: 01/11/18 13:24:42 EDT 01/11/2018 Active levonorgestrel (MIRENA UTRN) Intrauteral, 1time, Entered: 11/02/17 9:18:51 EDT 11/02/2017 Active lurasidone HCl (LATUDA ORAL) PO, daily, Entered: 11/02/17 9:18:00 EDT 11/02/2017 Active mycophenolate (CellCept) 500 mg tablet Dose: 1,500 mg, Dose Amount: 3 tab, PO, BID, Dispense Quantity: 180 tab, Entered: 11/02/17 9:16:53 EDT 11/02/2017 Active Social History Tobacco Use Types Packs/Day Years Used Date Smoking Tobacco: Never Assessed Comments Unknown Sex and Gender Information Value Date Recorded Sex Assigned at Female 10/12/2023 5:41 PM EDT Legal Sex Female 5:41 PM EDT Gender Identity Not on file Sexual Orientation Not on file Last Filed Vital Signs Vital Sign Reading Time Taken Comments Blood Pressure - - Pulse - - Temperature 36.7 C (98.1 F) 10/29/2020 3:47 PM EDT Respiratory Rate - - Oxygen Saturation - - Inhaled Oxygen Concentration - - Weight 61.8 kg (136 lb 3.9 oz) 02/03/2023 11:06 AM EDT Height 158.2 cm (5' 2.28 ) 02/03/2023 11:06 AM E DT Body Mass Index 24.69 02/03/2023 11:06 AM EDT Plan of Treatment Not on file Care Teams Merchandising Intern Relationship Specialty Start Date End Date Group, [facility] [address] [place] [phone] PCP - General 01/20/23 Group, [facility] [address] [place] [phone] PCP - Clinical PCP 01/20/23 Sri Sahni [address] [place] [phone] PCP - Insurance PCP 10/03/14
--- OUTSIDE RECORDS SUMMARY | 2025-03-15 09:23 | XMS_ITS | Encounter Summary ---
Author Organization [facility], Address [address] [place] [address] Phone Care Team Providers Care Housing Quality Standard Inspector Name Role Phone Demetrius Roberto MD Primary Care Provider Encounter Details Date Type Department Care Team (Late st Contact Info) Description 08/03/2022 Documentation Only [facility], [address] [phone] Jani Dent PA [address] [place] [address] [place] [phone] Social History Tobacco Use Types Packs/Day Years [...] Visit [facility] [address] [place] [phone] Umberto Hood MD [address] [place] [phone] documented as of this encounter Visit Diagnoses Not on filedocumented in this encounter Care Teams Housing Quality Standard Inspector Relationship Specialty Start Date End Date Demetrius Roberto MD [address] [place] [phone] PCP - [facility] 10/04/24 documented as of this encounter
--- OUTSIDE RECORDS SUMMARY | 2025-03-15 09:23 | XMS_ITS | Encounter Summary ---
Author Organization [facility], Address [address] [place] [address] Phone Care Team Providers Care Quality Assurance Monitor Name Role Phone Demetrius Roberto MD Primary Care Provider Encounter Details Date Type Department Care Team (Late st Contact Info) Description 01/21/2023 Documentation Only [facility], [address] [place] [phone] Jani Dent PA [address] [place] [address] [place] [phone] Social History Tobacco Use Types Packs/Day Years [...] [facility] [address] [place] [phone] Umberto Hood MD [address] [place] [place] [phone] documented as of this encounter Visit Diagnoses Not on filedocumented in this encounter Care Teams Quality Assurance Monitor Relationship Specialty Start Date End Date Demetrius Roberto MD [address] [place] [phone] PCP - [facility] 10/04/24 documented as of this encounter
[2025-03-15 10:00] VITALS: BP 124/62; PULSE 62; RESP 15; TEMP 36.3; O2SAT 97
--- NOTE | 2025-03-15 10:03 | PC.NURSE ---
20gIV placed in the right AC - IVF/medication administered per provider order. effectiveness pending. lights dimmed to promote comfort. plan of care ongoing. call wayne placed within reach.
[2025-03-15 12:00] VITALS: BP 141/72; PULSE 60; RESP 16; TEMP 36.3; O2SAT 97
== END 2025-03-15 12:20 | disposition home or self-care (01) ==
PROVIDERS: Emergency Provider Emergency Medicine; PCP Internal Medicine
DX: G43.909 Migraine, unspecified, not intractable, without status migrainosus (principal); H53.143 Visual discomfort, bilateral; R11.0 Nausea; Z79.899 Other long term (current) drug therapy; Z11.52 Encounter for screening for COVID-19
CPT/HCPCS: 80053; 85025; 87502; 87635; 96361; 96374; 96375; 99284; J1200; J1885; J2765